=== PATIENT | female | born 1985 | race Caucasian/White ===

== ENCOUNTER 2017-02-20 13:54 | Emergency (ER) | payer SELFPAY ==
[2017-02-20 14:39] VITALS: BMI 33.3
--- NOTE | 2017-02-20 15:06 | XR_ITS ---
XR chest 2V COMPARISON: PA and lateral chest 04/09/2016 HISTORY: Cough TECHNIQUE: PA and lateral chest FINDINGS: The lung landry are well expanded and appear clear of infiltrate. The cardiac silhouette and vascularity are normal. There may be partially calcified right hilar nodes. There is no pleural fluid. IMPRESSION: Nonacute chest findings
[2017-02-20 15:38] LABS: UTC Influenza A Antigen Negative (Negative); UTC Influenza B Antigen Positive (Negative)
[2017-02-20 16:42] VITALS: BP 132/83; PULSE 97; RESP 20; TEMP 37.7; O2SAT 98; BMI 33.3
--- NOTE | 2017-02-20 17:38 | HMH.EDUTC ---
[facility] [place] Disposition Clinical Impression: Influenza B Disposition: Home, Self-Care Condition on Discharge: Good Instructions: DI for Influenza -- Adult Additional Instructions: * Start Tamiflu today if you are going to take it. Discussed risks and possible benefits. * Lots of rest * Increase fluids, water, gatorade, powerade, pedialyte if /toddler/child * Monitor Temp. Tylenol every 4 hours as needed no more then 5 times a day or 4000mg in 24 hours and/or ibuprofen every 6 hours as needed no more then 3200mg in 24 hours (as long as your primary care doctor has told you that it is ok to take both) for fever/aches/pain. ER if fever no less than 101 despite tylenol and Ibuprofen * warm salt water gargles * warm fluids * sore throat lozenges * sleep elevated * humidifier/vaporizer * Bromfed may cause drowsiness. Know how it effects you (or your child) before driving, caring for small children, or sending your child to school. No other antihistamines/allergy medications while taking bromfed. Follow up with primary care IMMEDIATELY for new or worsening symptoms, improvement followed by suddenly feeling worse OR no noticeable improvement over the next 48-72 hours. 911 for difficulty breathing Prescriptions: Brompheniramine/Pseudoephed/Dm [Bromfed DM Cough Syrup 5mL] 10 ml PO QID PRN #240 ml PRN Reason: Cough Oseltamivir Phosphate [Tamiflu 75mg Capsule] 75 mg PO BID #10 cap Forms: Work/School Release Time of Disposition: 17:49 Medical Decision Making Vital Signs: 02/20/17 16:42 Temperature 99.8 F H Temperature Source Temporal Artery Scan Pulse Rate [Left Brachial] 97 H Respiratory Rate 20 Blood Pressure [Left Arm] 132/83 Blood Pressure Mean [Left Arm] 99 Blood Pressure Source [Left Arm] Automatic Cuff Blood Pressure Position [Left Arm] Sitting 02 Sat by Pulse Oximetry 98 Oxygen Delivery Method Room Air - Lab Data Lab results reviewed: Yes: I reviewed the patient's lab results. Lab Results 02/20/17 15:05: Influenza Type A Ag Negative, Influenza Type B Ag Positive A - Radiology Data #1 Image(s): Chest Image Reviewed: Yes I have reviewed radiologist's interpretation Preliminary Findings: Normal/NAD - Curly Inquiry Pt receiving controlled substance: No [facility] [place] HPI - General Stated complaint: cough,headache,head congestion Mode of Arrival: Ambulatory Source of Information: Patient Limitations: No Limitations Description of Symptoms (Recalled from Triage Doc. by RN): c/o cough, sneezing, runny nose, sore throat HEENT Symptoms (Recalled from RN notes): Yes (runny nose, sore throat) Resp Symptoms (Recalled from RN notes): Yes (coughing, sneezing) Skin Symptoms (Recalled from RN notes): No MS Symptoms (Recalled from RN notes): No Functional Status (Recalled from RN notes): n/a - History of Present Illness Provider Complaint: Here w/ mom thinking she has the flu. Son, grandmother and grandfather and one niece all positive for flu B. Sister in law positive flu A. Mother and a niece w/ same symptoms but negative. Cough x 4-6 days but sudden onset rhinorrhea, sneezing, change in cough, headache, chills, feeling feverish yesterday. got worse each hour . dayquil once didn't help. Hasn't taken or tried anything else. - Related Data Previous Rx's Medication Instructions Recorded Brompheniramine/Pseudoephed/Dm 10 ml PO QID PRN #240 ml 02/20/17 [Bromfed DM Cough Syrup 5mL] Oseltamivir Phosphate [Tamiflu 75 mg PO BID #10 cap 02/20/17 75mg Capsule] Allergies Allergy/AdvReac Type Severity Reaction Status Date / Time No Known Allergies Allergy Unverified 01/25/17 14:42 - Worker's Comp Is this a Worker's Comp case?: No [facility] History I have reviewed the patient's past medical history: Yes (denies PMHx) Medical History: Denies:: Cancer, Diabetes Mellitus Type 1, Diabetes Mellitus Type 2, Hypertension, MRSA Other Surgeries: Yes: No Previous Surgery Amputation: No Fractures: No -
--- NOTE | 2017-02-20 17:45 | ED_ITS ---
[facility] [place] Disposition Clinical Impression: Influenza B Disposition: Home, Self-Care Condition on Discharge: Good Instructions: DI for Influenza -- Adult Additional Instructions: * Start Tamiflu today if you are going to take it. Discussed risks and possible benefits. * Lots of rest * Increase fluids, water, gatorade, powerade, pedialyte if /toddler/child * Monitor Temp. Tylenol every 4 hours as needed no more then 5 times a day or 4000mg in 24 hours and/or ibuprofen every 6 hours as needed no more then 3200mg in 24 hours (as long as your primary care doctor has told you that it is ok to take both) for fever/aches/pain. ER if fever no less than 101 despite tylenol and Ibuprofen * warm salt water gargles * warm fluids * sore throat lozenges * sleep elevated * humidifier/vaporizer * Bromfed may cause drowsiness. Know how it effects you (or your child) before driving, caring for small children, or sending your child to school. No other antihistamines/allergy medications while taking bromfed. Follow up with primary care IMMEDIATELY for new or worsening symptoms, improvement followed by suddenly feeling worse OR no noticeable improvement over the next 48-72 hours. 911 for difficulty breathing Prescriptions: Brompheniramine/Pseudoephed/Dm [Bromfed DM Cough Syrup 5mL] 10 ml PO QID PRN # 240 ml PRN Reason: Cough Oseltamivir Phosphate [Tamiflu 75mg Capsule] 75 mg PO BID #10 cap Forms: Work/School Release Time of Disposition: 17:49 Medical Decision Making Vital Signs: 02/20/17 16:42 Temperature 99.8 F H Temperature Source Temporal Artery Scan Pulse Rate [Left Brachial] 97 H Respiratory Rate 20 Blood Pressure [Left Arm] 132/83 Blood Pressure Mean [Left Arm] 99 Blood Pressure Source [Left Arm] Automatic Cuff Blood Pressure Position [Left Arm] Sitting 02 Sat by Pulse Oximetry 98 Oxygen Delivery Method Room Air - Lab Data Lab results reviewed: Yes: I reviewed the patient's lab results. Lab Results 02/20/17 15:05: Influenza Type A Ag Negative, Influenza Type B Ag Positive A - Radiology Data #1 Image(s): Chest Image Reviewed: Yes I have reviewed radiologist's interpretation Preliminary Findings: Normal/NAD - Curly Inquiry Pt receiving controlled substance: No [facility] [place]PI - General Stated complaint: cough,headache,head congestion Mode of Arrival: Ambulatory Source of Information: Patient Limitations: No Limitations Description of Symptoms (Recalled from Triage Doc. by RN): c/o cough, sneezing, runny nose, sore throat HEENT Symptoms (Recalled from RN notes): Yes (runny nose, sore throat) Resp Symptoms (Recalled from RN notes): Yes (coughing, sneezing) Skin Symptoms (Recalled from RN notes): No MS Symptoms (Recalled from RN notes): No Functional Status (Recalled from RN notes): n/a - History of Present Illness Provider Complaint: Here w/ mom thinking she has the flu. Son, grandmother and grandfather and one niece all positive for flu B. Sister in law positive flu A. Mother and a niece w/ same symptoms but negative. Cough x 4-6 days but sudden onset rhinorrhea, sneezing, change in cough, headache, chills, feeling feverish yesterday. got worse each hour . dayquil once didn't help. Hasn't taken or tried anything else. - Related Data Previous Rx's Medication Instructions Recorded Brompheniramine/Pseudoephed/Dm 10 ml PO QID PRN #240 ml 02/20/17 [Bromfed DM Cough Syrup 5mL] Oseltam
[2017-02-20 17:51] VITALS: BP 132/83; PULSE 97; RESP 20; TEMP 37.7; O2SAT 98
== END 2017-02-20 17:53 | disposition home or self-care (01) ==
PROVIDERS: Emergency Provider Nurse Practitioner Family; Family Provider Family Medicine
DX: J11.1 Influenza due to unidentified influenza virus with other respiratory manifestations (principal)
CPT/HCPCS: 71046; 87804; 99202; 99282

== ENCOUNTER → 2018-09-07 15:33 | Outpatient (CLI) | payer OTHER, SELFPAY | PROVIDERS: Visit Provider Nurse Practitioner Obstetrics & Gynecology | DX: Z32.00 Encounter for pregnancy test, result unknown (principal) | CPT/HCPCS: 36415; 84702 ==

== ENCOUNTER → 2018-09-15 12:32 | Outpatient (CLI) | payer OTHER, SELFPAY ==
--- NOTE | 2018-09-15 12:36 | US_ITS ---
US OB transvaginal: INDICATION: ITS.REASON: US OB Dates ORDERING PHYSICIAN: Jim Vilchis MD PATIENT AGE: 33 years TECHNIQUE: ultrasound transabdominal scanning. COMPARISON: No previous relevant studies. FINDINGS: Single viable intrauterine gestation. position. Placenta: placenta grade . There is amount fluid. The cervix appears satisfactory. Closed and measuring in length. Complete survey performed and was unremarkable on the submitted images as in PACS. No discrete anomalies identified on survey imaging by technologist. Active fetus. Three-vessel cord with satisfactory umbilical cord insertion. 4- chamber heart noted. Survey of brain & ventricles unremarkable. Face and neck survey unremarkable. Diaphragm and chest views unremarkable. Abdomen: Both kidneys noted and unremarkable. Stomach noted and satisfactory. Spine: Survey of the spine satisfactory with no anomalies identified nor imaged. Both arms and legs noted. Amniotic Fluid: Adequate. Maternal adnexa: No significant findings. Measurements: Average ultrasound age . Gestational Age . Estimated due date by ultrasound age . Estimated weight grams. BPD = OFD = HC = AC = FL = Growth Percentile= Heart Rate = Cerebellum = Humerus = HC/AC is . CI is . FL/BPD is . FL/AC is . IMPRESSION: US OB transvaginal HISTORY: ITS.REASON: US OB Dates ORDERING PHYSICIAN: Jim Vilchis MD PATIENT AGE: 33 years COMPARISON: None FINDINGS: An intrauterine gestational sac is present with a pole with a crown-rump length of 2.32cm correlating to gestational age of 9w1d. heart tones are present with an FHR of 186 bpm's. Yolk sac is noted. The amnion and chorion have not yet fused. Adnexa: Small left corpus luteum cyst at 1.6 cm. IMPRESSION: Live intrauterine gestation at 9 weeks 1 days as described above. Estimated due date by Ultrasound is 04/19/2019
== END ==
PROVIDERS: PCP Family Medicine; Visit Provider Nurse Practitioner Obstetrics & Gynecology
DX: O26.841 Uterine size-date discrepancy, first trimester (principal)
CPT/HCPCS: 76817

== ENCOUNTER → 2018-09-22 13:07 | Outpatient (CLI) | payer OTHER, SELFPAY ==
[2018-09-22 14:52] LABS: Basophils % 0.4 % (0.1-2.0); Eosinophils # 0.2 K/mm3 (0.0-0.4); Eosinophils % 2.2 % (0.1-12.0); Hematocrit 40.3 % (37.0-47.0); Hemoglobin 13.3 g/dL (12.2-16.2); Lymphocytes # 1.6 K/mm3 (0.7-4.5); Lymphocytes % 18.2 % (10-50); Mean Corpuscular Hemoglobin 30.7 pg (27.0-31.2); Mean Corpuscular Volume 93.2 fl (81-99); Mean Platelet Volume 6.8 fl (7.4-10.4); Monocytes # 0.5 K/mm3 (0.1-1.0); Monocytes % 5.4 % (1.7-9.3); Neutrophils # 6.6 K/mm3 (1.8-7.8); Neutrophils % 73.7 % (37.0-80.0); Platelet Count 300 K/mm3 (142-424); Red Blood Count 4.33 M/mm3 (4.20-5.40); Red Cell Distribution Width 12.9 % (11.5-17.5)
[2018-09-23 07:09] LABS: HIV Screen 4th Generation wRfx Non Reactive (Non Reactive)
[2018-09-24 16:30] LABS: Hepatitis B Surface Antigen Negative (Negative); Hepatitis C Antibody <0.1 s/co ratio (0.0-0.9)
[2018-09-24 16:33] LABS: Rapid Plasma Reagin Ab Titer Non Reactive (NonRea<1:1)
== END ==
PROVIDERS: Visit Provider Nurse Practitioner Obstetrics & Gynecology
DX: Z34.90 Encounter for supervision of normal pregnancy, unspecified, unspecified trimester (principal)
CPT/HCPCS: 36415; 85025; 86592; 86703; 86762; 86850; 87340; 87380; G0432

== ENCOUNTER → 2018-09-27 09:20 | Outpatient (CLI) | payer OTHER, SELFPAY ==
--- NOTE | 2018-09-27 09:29 | US_ITS ---
PROCEDURE: US OB TRANSVAGINAL CLINICAL INDICATION: US OB- Spotting during COMPARISON: OBTV US OB transvaginal from 09/15/2018 FINDINGS: There is a single live intrauterine gestation present with a crown-rump length of 4.26 cm correlating to a gestational age of 11 weeks and 1 day. The placenta is noted forming anteriorly. No evidence of retroplacental hemorrhage. heart tones are present 154 beats per minute. There is a 1.8 cm cyst within the left ovary. No cul-de-sac fluid evident. IMPRESSION: Live intrauterine at 11 weeks and 1 day. Estimated due date by ultrasound is 04/17/2019 Dictated by: Gorge Clarke MD 09/27/2018 17:35 Signed by: <Electronically signed by Gorge Clarke MD in [place]> 09/27/2018 17:35
== END ==
PROVIDERS: PCP Family Medicine; Visit Provider Nurse Practitioner Obstetrics & Gynecology
DX: O26.851 Spotting complicating pregnancy, first trimester (principal); Z3A.11 11 weeks gestation of pregnancy
CPT/HCPCS: 76817

== ENCOUNTER → 2018-12-04 12:43 | Outpatient (CLI) | payer OTHER, SELFPAY ==
--- NOTE | 2018-12-04 12:46 | US_ITS ---
PROCEDURE: US OB /MATERNAL DETAIL CLINICAL INDICATION: US OB Complete COMPARISON: US OB TRANSVAGINAL from 09/27/2018 FINDINGS: Single viable intrauterine gestation. Cephalic position. Placenta: Anteriorplacenta grade 1. There is average amount fluid. The cervix appears closed. Complete survey performed and was unremarkable on the submitted images as in PACS. No discrete anomalies identified on survey imaging by technologist. Active fetus. Three-vessel cord with satisfactory umbilical cord insertion. 4- chamber heart noted. Survey of brain & ventricles Unremarkable. Face and neck survey unremarkable. Diaphragm and chest views unremarkable. Abdomen: Both kidneys noted and unremarkable. Stomach noted and satisfactory. Spine: Survey of the spine satisfactory with no anomalies identified nor imaged. Both arms and legs noted. Amniotic Fluid: Adequate. Maternal adnexa: No significant findings. Measurements: Average ultrasound age 20 weeks and 5 days. Gestational Age 20 weeks and 4 days Estimated due date by ultrasound age 0304/18/2019. Estimated weight 365.6 ggrams. BPD = 20 weeks 5 days OFD = 21 weeks 1 day HC = 20 weeks 2 days AC = 21 weeks 1 day FL = 20 weeks 2 days Growth Percentile= 48 percent% Heart Rate = 149 bpm Cerebellum = 20 weeks 0 days Humerus = 21 weeks 4 days HC/AC is 1.11 CI is 0.76 FL/BPD is 0.67 FL/AC is 0.2 IMPRESSION: There is a single live fetus which is in cephalic presentation with an average ultrasound age of 20 weeks and 5 days. All parameters correlate with no obvious anomalies. Please see above for detail. Dictated by: Gorge Clarke MD 12/04/2018 16:35 Electronically signed by Gorge Clarke MD in [place] 12/04/2018 16:35
== END ==
PROVIDERS: PCP Family Medicine; Visit Provider Nurse Practitioner Obstetrics & Gynecology
DX: Z36.0 Encounter for antenatal screening for chromosomal anomalies (principal)
CPT/HCPCS: 76811

== ENCOUNTER → 2019-01-17 08:08 | Outpatient (CLI) | payer OTHER, SELFPAY ==
[2019-01-17 08:54] LABS: Glucose,Fasting 85 mg/dL (60-105)
[2019-01-17 09:57] LABS: Glucose 1 Hour 142 mg/dL (74-106)
== END ==
PROVIDERS: Visit Provider Nurse Practitioner Obstetrics & Gynecology
DX: Z34.90 Encounter for supervision of normal pregnancy, unspecified, unspecified trimester (principal)
CPT/HCPCS: 36415; 82951

== ENCOUNTER → 2019-01-22 08:07 | Outpatient (CLI) | payer OTHER, SELFPAY ==
[2019-01-22 08:29] LABS: Glucose,Fasting 80 mg/dL (60-105)
[2019-01-22 10:03] LABS: Glucose 1 Hour 147 mg/dL (74-106)
[2019-01-22 10:51] LABS: Glucose 2 Hour 108 mg/dL (74-106)
[2019-01-22 11:52] LABS: Glucose 3 Hour 76 mg/dL (74-106)
== END ==
PROVIDERS: Visit Provider Nurse Practitioner Obstetrics & Gynecology
DX: R73.09 Other abnormal glucose (principal)
CPT/HCPCS: 36415; 82951

== ENCOUNTER → 2019-03-15 16:26 | Outpatient (CLI) | payer OTHER, SELFPAY | PROVIDERS: Visit Provider Nurse Practitioner Obstetrics & Gynecology | DX: Z34.90 Encounter for supervision of normal pregnancy, unspecified, unspecified trimester (principal); Z3A.35 35 weeks gestation of pregnancy | CPT/HCPCS: 86403 ==

== ENCOUNTER 2019-04-18 04:57 | Inpatient (IN) ==
[2019-04-18 05:50] LABS: Microscopic, Urine URINE MICROSCOPIC (MICROSCOPIC)
[2019-04-18 05:53] LABS: Basophils % 0.3 % (0.1-2.0); Eosinophils # 0.1 K/mm3 (0.0-0.4); Eosinophils % 1.2 % (0.1-12.0); Hematocrit 38.1 % (37.0-47.0); Hemoglobin 12.8 g/dL (12.2-16.2); Lymphocytes # 2.1 K/mm3 (0.7-4.5); Lymphocytes % 19.1 % (10-50); Mean Corpuscular HGB Conc 33.5 g/dL (31.8-35.4); Mean Corpuscular Volume 93.4 fl (81-99); Mean Platelet Volume 7.9 fl (7.4-10.4); Monocytes # 0.6 K/mm3 (0.1-1.0); Monocytes % 5.5 % (1.7-9.3); Neutrophils % 73.9 % (37.0-80.0); Platelet Count 224 K/mm3 (142-424); Red Blood Count 4.08 M/mm3 (4.20-5.40); White Blood Count 10.9 K/mm3 (4.8-10.8)
[2019-04-18 05:54] LABS: Appearance,Urine CLEAR (Clear); Bilirubin,Urine Negative (Negative); Blood, Urine Negative (Negative); Color,Urine YELLOW (Yellow); Glucose,Urine (UA) Negative (Negative); Ketones,Urine Negative (Negative); Leukocyte Esterase,Urine Negative (Negative); Protein,Urine Negative (Negative); Specific Gravity, Urine >= 1.030 (1.005-1.030); Urobilinogen,Urine 0.2 EU/dl (0.2)
[2019-04-18 06:03] LABS: Bacteria,Urine 1+ /lpf; Mucus,Urine 1+ /lpf
[2019-04-18 06:05] LABS: Benzodiazepines Screen,Urine Negative ng/ml (<200)
[2019-04-18 06:06] LABS: Amphetamine/Metha Screen,Urine Negative ng/ml (<1000); Barbiturates Screen,Urine Negative ng/ml (<200)
[2019-04-18 06:07] LABS: Cannabinoid Screen,Urine Negative ng/ml (<50)
[2019-04-18 06:08] LABS: Cocaine Screen,Urine Negative ng/ml (<300); Methadone Screen,Urine Negative ng/ml (<300)
[2019-04-18 06:09] LABS: Phencyclidine Screen,Urine Negative ng/ml (<25)
[2019-04-18 06:10] LABS: Opiate Screen,Urine Negative ng/ml (<300)
--- NOTE | 2019-04-18 09:53 | Progress Note ---
Labor Note - Subjective: Date: 04/18/19 Time: 09:52 regular contraction - Objective: NST:: Reactive Contractions:: every 2-3 minutes Cervical Dilation:: 4 Effacement:: 90% Station: -2 Membranes: artificially ruptured - Fetus: Monitoring?: Yes monitoring type:: Internal and External Comment:: iupc inserted - Assessment: Labor progressing?: Yes Cephalopelvic disproportion?: No Patient Problems: All Active Problems Common cold virus (Acute) (Acute) URI (upper respiratory infection) (Acute) Irregular periods (Acute) Influenza B (Acute) - Plan: Anesthesia for epidural?: Yes Continue to labor down?: Yes Plan for ?: No Continue to monitor?: Yes Start pushing?: No
--- NOTE | 2019-04-18 11:45 | Progress Note ---
Labor Note - Subjective: Date: 04/18/19 Time: 11:45 regular contraction - Objective: NST:: Reactive Contractions:: every 2-3 minutes Cervical Dilation:: 9-10 Effacement:: 100% Station: +3 Membranes: artificially ruptured - Fetus: Monitoring?: Yes monitoring type:: Internal and External - Assessment: Labor progressing?: Yes Cephalopelvic disproportion?: No Patient Problems: All Active Problems Common cold virus (Acute) (Acute) URI (upper respiratory infection) (Acute) Irregular periods (Acute) Influenza B (Acute) - Plan: Anesthesia for epidural?: Yes Continue to labor down?: Yes Plan for ?: No Continue to monitor?: Yes Start pushing?: Yes
--- NOTE | 2019-04-18 12:05 | Procedure Note ---
- Delivery Note Delivery Date:: 04/18/19 Delivery Time:: 11:51 Anesthesia Type: Epidural Was labor medically induced?: Yes Induction method: per pitocin protocol Gestational age (weeks): 39 delivered prior to 39 weeks?: No Gender: Female at 1 minute: 8 at 5 minutes: 9 Delivery Procedure:: She is a 34-year-old 2 para 1 who was 39 and 6 weeks gestational age. She was feeling lots of pressure so we elected to augment her labor. She was started on IV oxytocin had her membranes ruptured. She progressed to full dilation under labor epidural and delivered spontaneously a liveborn female child at 11:51 AM in the morning of April 18, 2019. On deliver the head there was a tight nuchal cord and I elected to deliver the rest the infant's body atraumatically. The cord was then reduced and the baby cried spontaneously. The oropharynx and nasopharynx were bulb suction. We allowed the cord to continue to pulsate for approximately 1 minute. The cord was then doubly clamped and cut and the was placed on the mother's abdomen for further care. The nurses assigned Apgars of 8 at 1 minute and 9 at 5 minutes. She received IV oxytocin using gentle traction on the cord countertraction on the fundus I was able to easily deliver the placenta intact. He had a normal three-vessel cord. She had a small first-degree perineal laceration that was repaired with a single interrupted 3-0 Vicryl Rapide suture. She has O Rh+ blood, she is rubella immune and was group B streptococcus negative. She plans to breast-feed. Her craft worker is Dr. Pelletier. Estimated blood loss was approximately 500 cc. Laceration:: vaginal Placental Delivery Description: Spontaneous
--- NOTE | 2019-04-18 12:22 | Progress Note ---
[facility] Anesthesia Checklist - Structural Data Admitted From: Inpatient Planned Operative Procedure/s: labor epidural Consent for Planned Operative Procedure(s) Verified: Yes - Airway Assessment C-Spine Mobility Assessed: Yes TMJ Mobility Assessed: Yes Dentition: Good Dentition - Neurological Assessment Level of Consciousness: Awake, Alert, Appropriate - Anesthesia Plan Anesthesia Risk discussed: Yes Anesthesia Plan: Verified ASA Class: III Anesthesia Type: Epidural [facility] History I have reviewed the patient's past medical history: Yes Medical History: Denies:: Cancer, Diabetes Mellitus Type 1, Diabetes Mellitus Type 2, Hypertension, MRSA *Have you ever received a pneumonia vaccine?: No *Have you received a flu vaccine this season?: Yes Anesthesia experience/problems:: none Other Surgeries: Yes: No Previous Surgery, Other. No: Amputation: No Fractures: No - *Social History Smoking Status: Current every day smoker Tobacco Type: cigarettes # Packs/Day (cigarettes): 1 Alcohol Intake: never Substance Use Type: denies use *Occupational Status:: employed *Travel in the last 8 weeks: None Family Hx:: No significant family history Para: 1
[2019-04-19 07:29] LABS: Hematocrit 33.7 % (37.0-47.0); Hemoglobin 11.3 g/dL (12.2-16.2)
[2019-04-19 08:25] VITALS: BP 130/66
--- NOTE | 2019-04-19 08:25 | Progress Note ---
Internal Medicine - PN: Subj *Date: 04/19/19 *Time: 08:22 Interval history: She is doing well. We will plan to send her home tomorrow. She is breast- feeding. Her lochia is normal. Exam Vital signs and Labs for Last 24 Hours: Temp Pulse Resp BP Pulse Ox 98.4 F 81 18 132/78 96 04/18/19 17:00 04/18/19 17:00 04/18/19 17:00 04/18/19 17:00 04/18/19 17:00 Laboratory Results - last 24 hr 04/18/19 12:08: Cord ABG pH 7.34 L 04/19/19 07:20: Hgb 11.3 L, Hct 33.7 L I & O for Last 24 hours: Intake & Output 04/16/19 04/17/19 04/18/19 04/19/19 11:59 11:59 11:59 11:59 Weight 270 lb - Constitutional no acute distress - *Routine HEENT Exam Head: Present: normocephalic Eye: Present: EOMI, PERRL ENT: Present: mucous membranes moist Assessment and Plan (1) Normal delivery Current visit: Yes Status: Acute Category: Medical Code(s): O80 - Encounter for full-term uncomplicated delivery - Assessment and plan all Dx Assessment and Plan for all problems:: She continues to do well. She is breast-feeding. We will plan to send her home tomorrow.
--- NOTE | 2019-04-20 09:48 | Discharge Summary ---
General - General Admission date:: 04/18/19 Discharge date: 04/20/19 HPI HPI: She is a 34-year-old 2 now para 2 who is 39 weeks gestational age. She was feeling pressure and since she was term we elected to induce her labor. Hospital Course Hospital Course: She started on oxytocin had her membranes ruptured. Under labor epidural she progressed to full dilation and delivered spontaneously a liveborn female child at 11:51 AM on the morning of April 18, 2019. Baby was a liveborn female child with Apgars of 8 at 1 minute and 9 at 5 minutes. She weighed 8 pounds 9 ounces. She has done well and has remained afebrile with that her hospitalization. She is eating and drinking and ambulating. She has Rh+ blood. She is breast-feeding. She is discharged home to follow-up with me in approximate 2 weeks time. She will continue with her vitamins and iron. She will continue with her breast-feeding. Her condition on discharge is stable and improved. Rhogam Administration: Not Indicated Objective Vital signs: Temp Pulse Resp BP Pulse Ox 97.5 F L 82 20 130/66 98 04/19/19 08:00 04/19/19 08:00 04/19/19 08:00 04/19/19 08:00 04/19/19 08:00 DS: Diagnosis - Discharge Diagnosis (1) Normal delivery Status: Acute Discharge Plan - Patient Discharge Instructions ACTIVITY: No heavy lifting DIET: continue same diet Patient Instructions: DI for Pre-eclampsia, [facility] Post Discharge Instructions - Follow up Plan Disposition: Home, Self-Intermediate Medications: Home Medications Medication Instructions Recorded Confirmed Type prenat.vits,sidney,kwv-[id number] 1 tab PO DAILY 09/20/18 04/18/19 History Famotidine [Acid Molding Cutter] 20 mg PO DAILY 03/10/19 04/18/19 History Ferrous Sulfate 325 mg PO DAILY 03/10/19 04/18/19 History Prescriptions/Medication Reconciliation: Continued prenat.vits,sidney,tdo-[id number] 1 tab PO DAILY Famotidine [Acid Molding Cutter] 20 mg PO DAILY Ferrous Sulfate 325 mg PO DAILY - Problem Reconciliation Problems Reviewed?: Yes
== END 2019-04-20 13:15 | disposition home or self-care (01) | DRG 807 ==
LOC: OB 04:57
PROVIDERS: ADMIT Nurse Practitioner Obstetrics & Gynecology; ATTEND Nurse Practitioner Obstetrics & Gynecology
CPT/HCPCS: C1758

== ENCOUNTER 2019-07-03 08:11 | Inpatient (IN) | payer OTHER, SELFPAY ==
[2019-07-03] VITALS (26 sets, daily range): BP systolic 103–151; BP diastolic 42–94; PULSE 62–98; RESP 16–20; TEMP 36.2–43; O2SAT 95–99; BMI 39.9
[2019-07-03 08:41] LABS: Microscopic, Urine URINE MICROSCOPIC (MICROSCOPIC)
[2019-07-03 08:43] LABS: Appearance,Urine CLEAR (Clear); Blood, Urine TRACE-I (Negative); Color,Urine YELLOW (Yellow); Glucose,Urine (UA) Negative (Negative); Ketones,Urine Negative (Negative); Leukocyte Esterase,Urine Negative (Negative); Nitrate,Urine Negative (Negative); Protein,Urine Negative (Negative); Specific Gravity, Urine 1.025 (1.005-1.030)
--- NOTE | 2019-07-03 08:43 | CT_ITS ---
PROCEDURE: CT ABDOMEN PELVIS WO CON CLINICAL INDICATION: R lower abd pain Right lower quadrant pain with fever nausea vomiting and diarrhea the COMPARISON: No exams were available for comparison TECHNIQUE: Axial images obtained with sagittal and coronal reformats. All CT scans at the facility use one or more dose reduction, viz: automated exposure control, ma/kV adjustment per patient size (including targeted exams where dose is matched to indication, i.e. head), or iterative reconstruction technique. FINDINGS: LOWER THORAX: Atelectatic or fibrotic changes are present in the right lung base posteriorly. Follow-up may confirm stability ABDOMEN & PELVIS: The liver, gallbladder, spleen, adrenal glands, and pancreas have an unremarkable unenhanced appearance. No renal or ureteral calculi. No hydronephrosis. There are few scattered small retroperitoneal lymph nodes. The appendix has an abnormal appearance. The appendix is enlarged with a focal collection along the tip of the appendix superiorly measuring 3.6 by 2.4 cm with an air-fluid level consistent with an abscess either at the tip of the appendix. The appendix is retrocecal. There is thickening of the descending colon and cecum and stranding of the periappendiceal fat. No intestinal obstruction is evident. No evidence of pneumoperitoneum. There is a small amount of fluid in the pelvis the the. No acute bony anomalies. IMPRESSION: Findings are compatible with acute appendicitis with a 3.5 cm periappendiceal/appendiceal abscess. The appendix is retrocecal. The findings were discussed with Dr. Catalan at 07/03/2019 at 9:20 a.m. Dictated by: Gorge Clarke MD 07/03/2019 09:25 Electronically signed by Gorge Clarke MD in [place] 07/03/2019 09:26
[2019-07-03 08:48] LABS: Urine Pregnancy, HCG Qual. Negative (Negative)
[2019-07-03 08:53] LABS: Bilirubin,Urine Negative (Negative)
--- NOTE | 2019-07-03 08:59 | PC.NURSE ---
pt to CT
[2019-07-03 09:01] LABS: Bacteria,Urine 3+ /lpf; Mucus,Urine 1+ /lpf
[2019-07-03 09:09] LABS: Basophils # 0.1 K/mm3 (0-0.2); Basophils % 0.5 % (0.1-2.0); Eosinophils # 0.3 K/mm3 (0.0-0.4); Eosinophils % 2.7 % (0.1-12.0); Hematocrit 40.3 % (37.0-47.0); Hemoglobin 13.6 g/dL (12.2-16.2); Lymphocytes # 1.4 K/mm3 (0.7-4.5); Lymphocytes % 14.2 % (10-50); Mean Corpuscular HGB Conc 33.7 g/dL (31.8-35.4); Mean Corpuscular Hemoglobin 31.1 pg (27.0-31.2); Mean Corpuscular Volume 92.1 fl (81-99); Mean Platelet Volume 7.1 fl (7.4-10.4); Monocytes # 0.5 K/mm3 (0.1-1.0); Monocytes % 4.8 % (1.7-9.3); Neutrophils # 7.5 K/mm3 (1.8-7.8); Neutrophils % 77.8 % (37.0-80.0); Platelet Count 334 K/mm3 (142-424); Red Blood Count 4.38 M/mm3 (4.20-5.40); Red Cell Distribution Width 12.9 % (11.5-17.5); White Blood Count 9.6 K/mm3 (4.8-10.8)
[2019-07-03 09:15] LABS: Chloride 105 mmol/L (98-107); Potassium 4.1 mmoL/L (3.5-5.1); Sodium 139 mmol/L (136-145)
[2019-07-03 09:18] LABS: Alanine Aminotransferase 25 U/L (12-78); Albumin Level 3.9 g/dl (3.5-5.0); Albumin/Globulin Ratio 1.1 (1.1-1.8); Alkaline Phosphatase 72 U/L (38-126); Anion Gap 13.1 mEq/L (5-15); Aspartate Amino Transferase 28 U/L (14-36); Bilirubin,Total 0.6 mg/dl (0.2-1.3); Blood Urea Nitrogen 13 mg/dl (7-17); Calcium 9.1 mg/dl (8.4-10.2); Carbon Dioxide 25 mmol/L (22.0-30.0); Creatinine Clearance Estimated 191 mL/min (50-200); Estimated Glomerular Filt Rate 95 ml/min (>60); GFR (African American) 115 ML/MIN (>60); Globulin 3.5 g/dL (1.3-3.2); Glucose 107 mg/dl (74-100); Total Protein,Serum 7.4 g/dl (6.3-8.2)
--- NOTE | 2019-07-03 09:26 | PC.NURSE ---
Dr. Lion ardon.
--- NOTE | 2019-07-03 09:33 | PC.NURSE ---
Addendum entered by Radha Muñoz, EMT 07/03/19 09:36: Dr Catalan spoke with Dr Kruger only. Original Note: Dr Catalan spoke with Dr Seymour and Dr Kruger.
--- NOTE | 2019-07-03 09:45 | HMH.EDABDPAI ---
ED Disposition Clinical Impression: Acute appendicitis Disposition: Admitted as Observation Condition on Discharge: Good Instructions: DI for Acute Abdomen Referrals: Bill Valencia MD [Primary Care Provider] - - Critical Care Critical Care Time: No Attestation: On 07/03/19, the high probability of a clinically significant, sudden or life threatening deterioration of the following system(s) required my full and direct attention, intervention and personal management. The time I documented below is in addition to time spent performing reported procedures but includes the following listed in this critical care notation. Medical Decision Making - Medical Records Medical records reviewed: Yes: I reviewed the patient's medical records. - Curly Inquiry Pt receiving controlled substance: No Vital Signs: 07/03/19 08:17 07/03/19 09:44 Temperature 97.4 F L 98.4 F Temperature Source Oral Oral Pulse Rate [Right Radial] 98 H 91 H Respiratory Rate 16 18 Blood Pressure [Right Arm] 129/75 151/94 H Blood Pressure Mean [Right Arm] 93 113 Blood Pressure Source [Right Arm] Automatic Cuff Blood Pressure Position [Right Arm] Sitting Sitting 02 Sat by Pulse Oximetry 97 98 Oxygen Delivery Method Room Air Room Air - Lab Data Lab results reviewed: Yes: I reviewed the patient's lab results. Lab Results 07/03/19 08:25: Urine Color Yellow, Urine Appearance Clear, Urine pH 6.0, Ur Specific [place] 1.025, Urine Protein Negative, Urine Glucose (UA) Negative, Urine Ketones Negative, Urine Blood Trace-i, Urine Nitrate Negative, Urine Bilirubin Negative, Urine Urobilinogen 1.0, Ur Leukocyte Esterase Negative, Urine RBC 5-10, Urine WBC 5-10, Ur Squamous Epith Cells 5-10, Urine Bacteria 3+, Urine Mucus 1+ 07/03/19 08:25: Urine HCG, Qual Negative 07/03/19 08:55: WBC 9.6, RBC 4.38, Hgb 13.6, Hct 40.3, MCV 92.1, MCH 31.1, MCHC 33.7, RDW 12.9, Plt Count 334, MPV 7.1 L, Neut % (Auto) 77.8, Lymph % (Auto) 14.2, [place] % (Auto) 4.8, Eos % (Auto) 2.7, Baso % (Auto) 0.5, Neut # (Auto) 7.5, Lymph # (Auto) 1.4, [place] # (Auto) 0.5, Eos # (Auto) 0.3, Baso # (Auto) 0.1 07/03/19 08:55: Sodium 139, Potassium 4.1, Chloride 105, Carbon Dioxide 25, Anion Gap 13.1, BUN 13, Creatinine 0.70, Estimated Creat Clear 191, Estimated GFR 95, Est GFR ( Amer) 115, Glucose 107 H, Calcium 9.1, Total Bilirubin 0.6, AST 28, ALT 25, Alkaline Phosphatase 72, Total Protein 7.4, Albumin 3.9, Globulin 3.5 H, Albumin/Globulin Ratio 1.1 Result diagrams: 07/03/19 08:55 07/03/19 08:55 Orders (Tests/Meds): ORDERS Category Date Time Status Urine Culture Stat Micro 07/03/19 08:25 Received - CT Data CT Scan: Abdomen, Pelvis Time Received: 09:[address] Reviewed: Yes: I have viewed the radiologist's interpretation Preliminary Findings: Abnormal (Acute appendicitis) Medical Decision Narrative: Spoke to Dr. Seymour for surgical consult. Abdominal Pain HPI - General Chief Complaint: Abdominal Pain Stated Complaint: right side pain Time Seen by Provider: 07/03/19 09:45 Mode of Arrival: Ambulatory Limitations: No Limitations Description of Symptoms (Recalled from ER Triage Doc. by RN): Pt c/o R lower abd pain that spasming in nature that began lastnight. Pt reports has constant dull in nature but intermittently. Pt denies n/v/d - History of Present Illness HPI narrative: A pleasant 34-year-old female presents the ED with right lower quadrant abdominal pain. Patient states that the pain started last night and described it as a sharp sensation. It progressively got worse as the day has progressed. She rates her pain 6 out of 10. She also complains of mild nausea with no vomiting. Alleviating factors include flexion at the waist and rest. Exacerbating factors include increasing intra-abdominal pressure. Patient denies any overt fever either subjective or objective. Patient denies any cough or shortness of breath. Patient denies any malaise or fatigue. Patient also
--- NOTE | 2019-07-03 09:59 | PC.NURSE ---
VALERIO VERA speaking with Dr. Malagon
--- NOTE | 2019-07-03 10:47 | HMH.GSHP ---
HPI HPI: Patient is a pleasant 34-year-old female whom has had some lower abdominal pain progressive over about 1 week. It became much more severe overnight and she presented to the emergency department. She underwent evaluation which included CT scan which revealed findings consistent with acute appendicitis with possible 2.5 cm abscess at the tip of the appendix. Surgical consultation was obtained. [facility] History Medical History: Denies:: Cancer, Diabetes Mellitus Type 1, Diabetes Mellitus Type 2, Hypertension, MRSA *Have you ever received a pneumonia vaccine?: No *Have you received a flu vaccine this season?: Yes Other Surgeries: Yes: No Previous Surgery, Other. No: Amputation: No Fractures: No - *Social History Smoking Status: Current every day smoker Tobacco Type: cigarettes # Packs/Day (cigarettes): 1 Alcohol Intake: never Substance Use Type: denies use *Occupational Status:: employed *Travel in the last 8 weeks: None Family Hx:: No significant family history Review of Systems - Review of Systems Review of systems:: pertinent systems reviewed and negative unless documented below Meds Home Medications Medication Instructions Recorded Confirmed Type prenat.vits,sidney,lkd-gjgu-wyzvg 1 tab PO DAILY 09/20/18 05/30/19 History Ferrous Sulfate 325 mg PO DAILY 03/10/19 05/30/19 History metoclopramide HCl 5 mg tablet 5 mg PO QID 14 Days #56 tab 05/30/19 05/30/19 Rx norethindrone (contraceptive) 0.35 0.35 mg PO DAILY #84 tab 05/30/19 05/30/19 Rx mg tablet Allergies Allergy/AdvReac Type Severity Reaction Status Date / Time No Known Allergies Allergy Verified 05/30/19 09:49 Exam Vital signs and Labs for Last 24 Hours: Temp Pulse Resp BP Pulse Ox 98.4 F 91 H 18 151/94 H 98 07/03/19 10:07/03/19 10:22 07/03/19 10:07/03/19 10:07/03/19 09:44 Laboratory Results - last 24 hr 07/03/19 08:25: Urine Color Yellow, Urine Appearance Clear, Urine pH 6.0, Ur Specific [place] 1.025, Urine Protein Negative, Urine Glucose (UA) Negative, Urine Ketones Negative, Urine Blood Trace-i, Urine Nitrate Negative, Urine Bilirubin Negative, Urine Urobilinogen 1.0, Ur Leukocyte Esterase Negative, Urine RBC 5-10, Urine WBC 5-10, Ur Squamous Epith Cells 5-10, Urine Bacteria 3+, Urine Mucus 1+ 07/03/19 08:25: Urine HCG, Qual Negative 07/03/19 08:55: WBC 9.6, RBC 4.38, Hgb 13.6, Hct 40.3, MCV 92.1, MCH 31.1, MCHC 33.7, RDW 12.9, Plt Count 334, MPV 7.1 L, Neut % (Auto) 77.8, Lymph % (Auto) 14.2, [place] % (Auto) 4.8, Eos % (Auto) 2.7, Baso % (Auto) 0.5, Neut # (Auto) 7.5, Lymph # (Auto) 1.4, [place] # (Auto) 0.5, Eos # (Auto) 0.3, Baso # (Auto) 0.1 07/03/19 08:55: Sodium 139, Potassium 4.1, Chloride 105, Carbon Dioxide 25, Anion Gap 13.1, BUN 13, Creatinine 0.70, Estimated Creat Clear 191, Estimated GFR 95, Est GFR ( Amer) 115, Glucose 107 H, Calcium 9.1, Total Bilirubin 0.6, AST 28, ALT 25, Alkaline Phosphatase 72, Total Protein 7.4, Albumin 3.9, Globulin 3.5 H, Albumin/Globulin Ratio 1.1 I & O for Last 24 hours: Intake & Output 06/30/19 07/01/19 07/02/19 07/03/19 11:59 11:59 11:59 11:59 Weight 240 lb - *Routine HEENT Exam Head: Present: normocephalic Eye: Present: EOMI, PERRL ENT: Present: mucous membranes moist - *Routine Neck Exam Present: supple. Absent: lymphadenopathy - *Routine Respiratory Exam Present: CTA bilaterally - *Routine Cardiovascular Exam Present: RRR - *Routine Abdominal Exam Present: soft, normoactive bowel sounds, tenderness Comments: Patient has tenderness with some voluntary guarding at the right lower quadrant. No diffuse peritoneal signs. - *Routine Extremities Exam Absent: cyanosis, clubbing, edema - *Routine Skin Exam Present: warm. Absent: rash - *Routine Neurological Exam Present: alert, oriented X3 Results - Results Lab Results Last 24 Hours:: Laboratory Results - last 24 hr 07/03/19 08:25: Urine Color Yellow, Urine Appearance Cl
--- NOTE | 2019-07-03 11:21 | HMH.ANESCL ---
[facility] Anesthesia Checklist - Structural Data Admitted From: Emergency Dept Planned Operative Procedure/s: appy Consent for Planned Operative Procedure(s) Verified: Yes - Airway Assessment C-Spine Mobility Assessed: Yes TMJ Mobility Assessed: Yes Dentition: Good Dentition - Neurological Assessment Level of Consciousness: Awake, Alert, Appropriate - Anesthesia Plan Anesthesia Risk discussed: Yes Anesthesia Plan: Verified ASA Class: II Anesthesia Type: General [facility] History I have reviewed the patient's past medical history: Yes Medical History: Denies:: Cancer, Diabetes Mellitus Type 1, Diabetes Mellitus Type 2, Hypertension, MRSA *Have you ever received a pneumonia vaccine?: No *Have you received a flu vaccine this season?: Yes Anesthesia experience/problems:: none Other Surgeries: Yes: No Previous Surgery, Other. No: Amputation: No Fractures: No - *Social History Smoking Status: Current every day smoker Tobacco Type: cigarettes # Packs/Day (cigarettes): 1 Alcohol Intake: never Substance Use Type: denies use *Occupational Status:: employed *Travel in the last 8 weeks: None Family Hx:: No significant family history
--- NOTE | 2019-07-03 12:19 | HMH.OPNOTE ---
Date of procedure: 07/03/19 Pre-op Diagnosis:: Acute appendicitis Post-op Diagnosis:: Acute perforated necrotic appendicitis with abdominal abscess formation Procedure performed:: Laparoscopic appendectomy with drainage of intra-abdominal abscess Surgeon:: Herminio Seymour MD EMISSION SPECIALIST:: Brett Parikh Anesthesia: GETA Estimated blood loss (mL): 25 Clinical Note:: Patient is a pleasant 34-year-old female whom has had some lower abdominal pain progressive over about 1 week. It became much more severe overnight and she presented to the emergency department. She underwent evaluation which included CT scan which revealed findings consistent with acute appendicitis with possible 2.5 cm abscess at the tip of the appendix. Surgical consultation was obtained. Operative findings:: Patient had a severely inflamed necrotic perforated abscess in the lateral cecal location. Necrosis. She had induration and involvement of the abscess wall of the cecum. The perforation was contained in the posterior lateral pericecal location with some reactive fluid in the pelvis. There was market induration and firmness of the cecum focally at the point of abscess wall. Operative note:: Consent was obtained and patient was taken to the operating room. She was placed in a supine position. General anesthesia was induced via endotracheal tube. Michael catheter was placed. Abdomen was prepped and draped in the standard surgical fashion. Subumbilical skin incision was made and while performing abdominal wall lift Veress needle was inserted. CO2 pneumoperitoneum was achieved to 15 mmHg. 12 mm optical trocar was inserted at the umbilicus. Intraperitoneal contents were visualized. She was positioned and Trendelenburg position. 5 mm trocar was inserted in the suprapubic location. There is some reactive fluid in the pelvis which was suctioned free. 5 mm trocar was inserted in the right upper abdomen. 30 degree 5 mm laparoscope was inserted through the right upper abdominal trocar site. Laparoscopic surveillance was carried out and there was very firm inflammatory adhesions in the right posterior lateral pericecal location. Using gentle blunt dissection the cecum was mobilized medially. There was then noted to be abscess pocket which was suctioned free aspirating thick pus. Ultimately the appendix was delivered from the lateral abdominal sidewall where it was densely adherent with evidence of well-formed necrotic abscess cavity involving the lateral pelvic sidewall and cecum. There was some firm induration to the cecum at the site of the abscess pocket. However, this appeared to be originating from the appendix. The appendix was liquefied necrosis with perforation. The mesoappendix was carefully divided with ERVIN ultrasonic harmonic daniel with care taken to coagulate the appendiceal artery. Dissection was carried down to the appendiceal base which appeared relatively uninflamed. The appendix was divided at its base with an endoscopic ABRAN linear cutting stapling device. This did require additional firing of the linear cutting stapler due to the attachments to the epiploic fat of the ileum. There was some oozing from the staple line and a single Hemoclip was applied for good hemostasis. Thorough irrigation and suctioning was performed with 3 L of warm saline. There appeared to be good hemostasis. 10 mm Lorne-Guillen drain was placed in the peritoneal cavity and exited through a right lower quadrant incision where it was secured with a 3-0 nylon horizontal mattress suture. Drain was positioned at the region of the abscess in the lateral cecal location. Trochars were then removed as CO2 pneumoperitoneum was evacuated. Fascia of the umbilicus was closed with multiple interrupted 0 Vicryl sutures. Local anesthetic was infiltrated into all incisions. Trocar skin incisions were closed with 4-0 Monocryl in a subcuticular fashion. Steri-Strips and dressings were applied. Condition
--- NOTE | 2019-07-03 12:33 | P.PN_ITS ---
[facility] Anesthesia Record Part I Intake, IV Amount: 450 Estimated blood loss (mL): 10 Urine output (mL): 50 Blood Products used (#): none Blood Pressure: 114/74 SaO2: 95 Pulse Rate: 65 Respiratory Rate: 20 Temperature: 97.2 F Patient is:: Drowsy, Nasal O2, Stable Stable to PACU at:: 12:26
--- NOTE | 2019-07-03 13:43 | P.PN_ITS ---
[facility] Anesthesia Record Part II Discharge Time: 12:56 Destination: Obstetric Gynecology Dept PACU nurse assessment reviewed?: Yes Patient Condition:: Good Anesthesia Complications:: None Swallowing reflex intact?: Yes Cyanosis?: No Blood Pressure: 113/70 Pulse Rate: 70 Temperature: 97.2 F Mental Status: Alert & Oriented Pain level:: 2 Nausea and/or vomitting:: None Intake, IV Amount: 20
[2019-07-03 15:33] LABS: Microscopic,Cath URINE MICROSCOPIC (MICROSCOPIC)
[2019-07-03 16:13] LABS: Appearance,Urine/Cath CLEAR (Clear); Bilirubin,Cath Negative (Negative); Blood, Urine/Cath TRACE-L (Negative); Color,Urine/Cath YELLOW (Yellow); Glucose,Urine/Cath (UA) Negative (Negative); Ketones,Urine/Cath Negative (Negative); Leukocyte Esterase,Cath Negative (Negative); Nitrate,Cath Negative (Negative); Protein,Urine/Cath Negative (Negative); Specific Gravity, Urine/Cath >= 1.030 (1.005-1.030)
--- NOTE | 2019-07-03 16:13 | P.CONPHA_ITS ---
[facility] Pharmacy VTE Monitoring - Patient Demographics Admission date: 07/02/19 Report Date: 07/03/19 Time: 16:13 Allergies/Adverse Reactions: Patient Allergies No Known Allergies Allergy (Verified 05/30/19 09:49) Height: 1.65 m Weight: 108.862 kg Patient Problems: Current Active Problems Acute appendicitis (Acute) - VTE Risk Labs: VTE Related Lab Results Hgb 13.6 g/dL (12.2-16.2) 07/03/19 08:55 Hct 40.3 % (37.0-47.0) 07/03/19 08:55 Plt Count 334 K/mm3 (142-424) 07/03/19 08:55 BUN 13 mg/dl (7-17) 07/03/19 08:55 Creatinine 0.70 mg/dl (0.52-1.04) 07/03/19 08:55 Estimated Creat Clear 191 mL/min (50-200) 07/03/19 08:55 Clinical Trial Participant: No - Prophylaxis VTE Prophylaxis Ordered?: Yes Types of VTE Prophylaxis: IPCS Knee High (POST OP)
--- NOTE | 2019-07-03 16:21 | SUR.OPER ---
pt received Invanz 1 gm IVPB @ 3692 per MD order
[2019-07-03 16:54] LABS: Bacteria,Urine/Cath TRACE /lpf; WBC,Urine/Cath Occasional #/hpf (0-3)
--- NOTE | 2019-07-03 19:05 | PC.NURSE ---
REPORT RECEIVED FROM Trupti SALAS RN.
--- NOTE | 2019-07-03 19:15 | PC.NURSE ---
PT VS OBTAINED. RN ASSISTED PT TO BR AND BACK VIA STAND BY ASSIST. PT TOLERATED WELL. VOIDED 425 ML CLEAR URINE.
--- NOTE | 2019-07-03 19:17 | PC.NURSE ---
PT MEDICATED PER EMAR AT THIS TIME RELATED TO PAIN 4/10 ON VERBAL SCALE.
--- NOTE | 2019-07-03 19:25 | PC.NURSE ---
PT ASSESSED AT THIS TIME. BILATERAL LUNG SOUNDS CLEAR. NO EDEMA NOTED. 4 LAP SITES C/D/I. RENETTA DRAIN INTACT AND DRAINING SEROSANGUINEOUS FLUID. PT STATES PAIN IS A 4/10 ON VERBAL SCALE R/T INCISIONS. DENIES ANY FURTHER NEEDS SITTING UP IN BED EATING BROTH.
--- NOTE | 2019-07-03 20:15 | PC.NURSE ---
PT SLEPT AT INTERVAL. STATES PAIN 02/16. VS OBTAINED AT THIS TIME. PT GIVEN AN ICENTIVE SPIROMETER AT THIS TIME AND TAUGHT HOW TO USE IT. PT KARLEY.
--- NOTE | 2019-07-03 22:24 | PC.NURSE ---
PT SLEPT AT INTERVAL. NEW BAG OF IV FLUIDS HUNG AT THIS TIME. PT MEDICATED PER EMAR R/T PAIN 4/10 ON VERBAL SCALE AT THIS TIME. PT REQUESTS WARM WATER AT THIS TIME DUE TO THROAT BEING SCRATCHY. DENIES ANY FURTHER NEEDS AT THIS TIME.
[2019-07-04] VITALS (8 sets, daily range): BP systolic 93–111; BP diastolic 53–70; PULSE 47–72; RESP 16–20; TEMP 36.4–36.7; O2SAT 95–98
--- NOTE | 2019-07-04 00:20 | PC.NURSE ---
VS OBTAINED AT THIS TIME. PT WAS SLEEPING. STATES HER PAIN IS VERY MILD RATING IT A 1/10 ON VERBAL SCALE. ICE PITCHER REFILLED. DENIES ANY FURTHER NEEDS AT THIS TIME. WILL CONTINUE TO OBSERVE.
--- NOTE | 2019-07-04 00:50 | PC.NURSE ---
PT AMBULATED TO BR AND BACK AT THIS TIME WITH STANDY BY ASSIST. URINE OUTPUT 350 ML CLEAR YELLOW, RENETTA EMPTIED AT THIS TIME 60 ML OUTPUT SEROSANGUINOUS FLUID.
--- NOTE | 2019-07-04 01:00 | PC.NURSE ---
PT MEDICATED PER EMAR AT THIS TIME. RATES PAIN 5/10 ON VERBAL SCALE.
--- NOTE | 2019-07-04 04:17 | PC.NURSE ---
PT SLEPT AT INTERVAL. PT VS OBTAINED AND REASSESSED AT THIS TIME. 4 LAP SITES AND RENETTA DRAIN NOTED. RENETTA DRAIN FLUID IS SEROSANGUINOUS, TELFA/ TEGADERM DRESSINGS C/D/I. BILATERAL LUNG SOUNDS CLEAR. NO EDEMA. NONPRODUCTIVE DRY COUGH THAT IS INTERMITTENT NOTED. PT STATES PAIN 2/10 AT THIS TIME BUT DENIES ANY MEDICATION. WILL CONTINUE TO OBSERVE.
--- NOTE | 2019-07-04 06:24 | PC.NURSE ---
PT MEDICATED PER EMAR AT THIS TIME R/T PAIN 4/10 ON VERBAL SCALE. NEW IV FLUIDS HUNG AT THIS TIME. PT DENIES ANY FURTHER NEEDS AT THIS TIME. WILL CONTINUE TO OBSERVE.
--- NOTE | 2019-07-04 06:34 | PC.NURSE ---
DR. HEARN AT BEDSIDE AT THIS TIME.
[2019-07-04 06:35] LABS: Chloride 104 mmol/L (98-107); Potassium 4.3 mmoL/L (3.5-5.1)
[2019-07-04 06:38] LABS: Blood Urea Nitrogen 10 mg/dl (7-17); Calcium 8.6 mg/dl (8.4-10.2); Carbon Dioxide 29 mmol/L (22.0-30.0); Creatinine Clearance Estimated 223 mL/min (50-200); Estimated Glomerular Filt Rate 113 ml/min (>60); GFR (African American) 137 ML/MIN (>60); Glucose 127 mg/dl (74-100)
[2019-07-04 06:49] LABS: Anion Gap 7.3 mEq/L (5-15); Sodium 136 mmol/L (136-145)
[2019-07-04 07:03] LABS: Monocytes # 0.5 K/mm3 (0.1-1.0)
--- NOTE | 2019-07-04 07:04 | PC.NURSE ---
REPORT GIVEN TO Kin BO RN AT THIS TIME.
--- NOTE | 2019-07-04 07:05 | PC.NURSE ---
REPORT RECEIVED FROM Karley LINDER RN
[2019-07-04 07:12] LABS: Basophils # 0.1 K/mm3 (0-0.2); Basophils % 0.5 % (0.1-2.0); Eosinophils % 0.1 % (0.1-12.0); Hematocrit 35.2 % (37.0-47.0); Lymphocytes # 0.9 K/mm3 (0.7-4.5); Lymphocytes % 7.2 % (10-50); MANUAL DIFFERENTIAL MANUAL DIFFERENTIAL (MANUAL DIFF); Mean Corpuscular HGB Conc 34.2 g/dL (31.8-35.4); Mean Corpuscular Hemoglobin 31.3 pg (27.0-31.2); Mean Corpuscular Volume 91.5 fl (81-99); Mean Platelet Volume 7.6 fl (7.4-10.4); Monocytes % 4.4 % (1.7-9.3); Neutrophils # 10.7 K/mm3 (1.8-7.8); Neutrophils % 87.7 % (37.0-80.0); Platelet Count 290 K/mm3 (142-424); Red Blood Count 3.84 M/mm3 (4.20-5.40); White Blood Count 12.2 K/mm3 (4.8-10.8)
--- NOTE | 2019-07-04 07:12 | P.PN_ITS ---
Subjective Narrative: Feels better. Some soreness. Has tolerated clear liquids. Exam Vital signs and Labs for Last 24 Hours: Temp Pulse Resp BP Pulse Ox 97.9 F 68 16 104/55 L 96 07/04/19 04:12 07/04/19 04:12 07/04/19 04:12 07/04/19 04:12 07/04/19 04:14 Laboratory Results - last 24 hr 07/03/19 08:25: Urine Color Yellow, Urine Appearance Clear, Urine pH 6.0, Ur Specific [place] 1.025, Urine Protein Negative, Urine Glucose (UA) Negative, Urine Ketones Negative, Urine Blood Trace-i, Urine Nitrate Negative, Urine Bilirubin Negative, Urine Urobilinogen 1.0, Ur Leukocyte Esterase Negative, Urine RBC 5-10, Urine WBC 5-10, Ur Squamous Epith Cells 5-10, Urine Bacteria 3+, Urine Mucus 1+ 07/03/19 08:25: Urine HCG, Qual Negative 07/03/19 08:55: WBC 9.6, RBC 4.38, Hgb 13.6, Hct 40.3, MCV 92.1, MCH 31.1, MCHC 33.7, RDW 12.9, Plt Count 334, MPV 7.1 L, Neut % (Auto) 77.8, Lymph % (Auto) 14.2, [place] % (Auto) 4.8, Eos % (Auto) 2.7, Baso % (Auto) 0.5, Neut # (Auto) 7.5, Lymph # (Auto) 1.4, [place] # (Auto) 0.5, Eos # (Auto) 0.3, Baso # (Auto) 0.1 07/03/19 08:55: Sodium 139, Potassium 4.1, Chloride 105, Carbon Dioxide 25, Anion Gap 13.1, BUN 13, Creatinine 0.70, Estimated Creat Clear 191, Estimated GFR 95, Est GFR ( Amer) 115, Glucose 107 H, Calcium 9.1, Total Bilirubin 0.6, AST 28, ALT 25, Alkaline Phosphatase 72, Total Protein 7.4, Albumin 3.9, Globulin 3.5 H, Albumin/Globulin Ratio 1.1 07/03/19 10:55: Urine Color Yellow, Urine Appearance Clear, Urine pH 6.0, Ur S pecific [place] >= 1.030, Urine Protein Negative, Urine Glucose (UA) Negative, Urine Ketones Negative, Urine Blood Trace-l, Urine Nitrate Negative, Urine Bilirubin Negative, Urine Urobilinogen 1.0, Ur Leukocyte Esterase Negative, Urine WBC Occasional, Ur Squamous Epith Cells 3-5, Urine Bacteria Trace 07/04/19 06:08: WBC 12.2 H D, RBC 3.84 L, Hgb 12.0 L D, Hct 35.2 L, MCV 91.5, MCH 31.3 H, MCHC 34.2, RDW 13.0, Plt Count 290, MPV 7.6, Neut % (Auto) 87.7 H, Lymph % (Auto) 7.2 L, [place] % (Auto) 4.4, Eos % (Auto) 0.1, Baso % (Auto) 0.5, Neut # (Auto) 10.7 H, Lymph # (Auto) 0.9, [place] # (Auto) 0.5, Eos # (Auto) 0.0, Baso # (Auto) 0.1 07/04/19 06:08: Sodium 136, Potassium 4.3, Chloride 104, Carbon Dioxide 29, Anion Gap 7.3, BUN 10, Creatinine 0.60, Estimated Creat Clear 223, Estimated GFR 113, Est GFR ( Amer) 137, Glucose 127 H, Calcium 8.6 I & O for Last 24 hours: Intake & Output 07/01/19 07/02/19 07/03/19 07/04/19 11:59 11:59 11:59 11:59 Intake Total 470 / 470 Output Total 1565 / 1565 Balance -1095 / -1095 Weight 240 lb - *Routine Abdominal Exam Present: soft Progress Note: A&P Assessment and Plan for All Diagnoses:: Continue IV antibiotics for abscessed necrotic appendix with peritonitis. Monitor drain output. Likely ultimately discharge on IV Invanz.
--- NOTE | 2019-07-04 07:30 | PC.NURSE ---
PATIENT ADVANCED TO FULL DIET THIS AM. ABLE TO AMBULATE WITHOUT ASSISTANCE THIS MORNING. IV INFUSING WITHOUT DIFFICULTY. REPORTS PAIN IS TOLERABLE AFTER MEDS (MD PRESSED ON STOMACH AND SHE SAID THAT GOT IT HURTING, BUT DENIED NEED FOR ANY MEDS). RENETTA DRAIN IN PLACE AND DRAINING SEROSANG DRAINAGE. NO CURRENT NEEDS. PATIENT IS GOING TO EAT BREAKFAST.
--- NOTE | 2019-07-04 11:00 | PC.NURSE ---
patient requesting something for pain. Med not due until 8900. will call
--- NOTE | 2019-07-04 11:06 | PC.NURSE ---
attempted to call dr. frey office- no answer.
[2019-07-04 12:29] LABS: Lymphocytes % 7 % (10-50); Monocytes % 4 % (2-9); Neutrophils % 89 % (42-76); Platelet Estimate Normal; Total Cells Counted 100
[2019-07-04 12:30] LABS: RBC Morphology Normal
--- NOTE | 2019-07-04 15:45 | PC.NURSE ---
NO CHANGES NOTED ON PATIENT ASSESSMENT. LUNGS CTA AND BOWEL SOUNDS ACTIVE X4. PT DECLINES PASSING GAS TODAY. [address] NO DRAINAGE NOTED. RENETTA DRAIN IN PLACE DRAINING SEROSANG DRAINAGE. IV INFUSING WITHOUT DIFFICULTY. PULSES 2+ AND NO EDEMA NOTED. PT REPORTS PAIN A 4/10 DECLINES NEEDS FOR MEDICATION. PLAN IS TO GET PATIENT UP AND SHOWER AFTER LUNCH. PT AGREEABLE. NO FURTHER NEEDS
--- NOTE | 2019-07-04 18:15 | PC.NURSE ---
pt up to shower now. medicated for pain per mar before hand. pt states she is passing gas now. Nurse changing linens.
--- NOTE | 2019-07-04 18:40 | PC.NURSE ---
Dressing change done. 4 lap sites. no drainage noted. steristrip on all of them and covered with telfa and tegaderm. bessy drainage in place with suture no drainage around it. new dressing applied. pt tolerated well. emptied bessy drain- 30ml of serosang drainage
--- NOTE | 2019-07-04 19:05 | PC.NURSE ---
REPORT RECEIVED FROM Kin BO RN.
--- NOTE | 2019-07-04 19:53 | PC.NURSE ---
PT ASSESSED AT THIS TIME. VSS. PT DENIES ANY PAIN AT THIS TIME. BILATERAL LUNG SOUNDS CLEAR. PT HAS AN INTERMITTENT COUGH THAT IS NONPRODUCTIVE. C/O HOARSENESS AND FEELING LIKE SOMETHING IS STUCK IN HER THROAT. NO EDEMA NOTED. BOWEL SOUNDS NORMAL. STATES SHE HAS BEEN PASSING GAS BUT NO BM YET. ABD HAS 4 LAP SITES THAT ARE STERI STRIPPED AND DRESSED WITH NONSTICK TELFA AND TEGADERM. DRESSING ARE C/D/I. RENETTA DRAIN IS INTACT AND FREELY DRAINING SEROSANGUINOUS FLUID. ABD IS TENDER BUT SOFT. WILL CONTINUE TO OBSERVE.
--- NOTE | 2019-07-04 21:18 | PC.NURSE ---
PT AMBULATING TO BR AND BACK AT THIS TIME INDEPENDENTLY. TOLERATED WELL. DENIES ANY FURTHER NEEDS AT THIS TIME.
--- NOTE | 2019-07-04 23:45 | PC.NURSE ---
NEW BAG OF IV FLUIDS HUNG AT THIS TIME. PT DENIES ANY FURTHER NEEDS AT THIS TIME. LYING IN BED WATCHING TV.
[2019-07-05] VITALS: BP 107/56; PULSE 60; RESP 16; TEMP 36.5; O2SAT 96
--- NOTE | 2019-07-05 00:20 | PC.NURSE ---
PT MEDICATED PER EMAR AT THIS TIME R/T PAIN. STATES PAIN IS 3/10 ON VERBAL SCALE BUT GETS WORSE WHEN SHE MOVES. DENIES ANY FURTHER NEEDS AT THIS TIME. WILL CONTINUE TO OBSERVE.
[2019-07-05 04:00] VITALS: BP 116/64; PULSE 60; RESP 16; TEMP 36.4; O2SAT 96
--- NOTE | 2019-07-05 04:22 | PC.NURSE ---
PT VSS. PT DENIES ANY PAIN AT THIS TIME. BILATERAL LUNG SOUNDS CLEAR. NO EDEMA NOTED. FOUR LAP SITE DRESSINGS ARE C/D/I. BOWEL SOUNDS ACTIVE. PT SLEPT AT INTERVAL. RENETTA DRAIN EMPTIED AT THIS TIME. 40 ML OF SEROSANGUINOUS FLUID. PT DENIES ANY FURTHER NEEDS AT THIS TIME. WILL CONTINUE TO OBSERVE.
--- NOTE | 2019-07-05 06:19 | XR_ITS ---
PROCEDURE: XR CHEST PORTABLE PICC PLAC CLINICAL HISTORY: Confirm PICC line placement COMPARISON: CXR CHEST(2 VIEWS-NOT PORTABLE) from 04/09/2016 CXR2V XR chest 2V from 02/20/2017 FINDINGS: The cardiomediastinal silhouette and pulmonary vascularity are within normal limits. Left upper extremity PICC line has been placed. The tip is in good position in the region of the superior vena cava. There are mild atelectatic changes in the left lower lobe No acute bony abnormalities. IMPRESSION: PICC line tip in good position Dictated by: Gorge Clarke MD 07/05/2019 10:25 Electronically signed by Gorge Clarke MD in [facility] 07/05/2019 10:25
--- NOTE | 2019-07-05 06:25 | PC.NURSE ---
DR. TEMPLETON AT BEDSIDE AT THIS TIME.
--- NOTE | 2019-07-05 06:29 | PC.NURSE ---
DR. TEMPLETON AT NURSES STATION STATING THAT HE REMOVED TWO UPPER TEGADERM TELFA DRESSING AND THAT HE WOULD LIKE THEM TO STAY OPEN TO AIR THE ONLY ONE THAT SHOULD NEED A DRESSING IS THE SITE WITH THE RENETTA DRAIN. STATES TO DRESS IT WITH FOUR BY FOURS AND TAPE. STATES THAT HE IS GOING TO PUT IN AN ORDER FOR A SOFT DIET. ALSO IS GOING TO PUT A CONSULT FOR A PICC SO WHEN PT GOES HOME ON ABX.
--- NOTE | 2019-07-05 06:47 | PC.NURSE ---
PT MEDICATED PER EMAR AT THIS TIME R/T PAIN 3/10 ON VERBAL SCALE. RENETTA DRAIN EMPTIED 30 ML SEROSANGUINOUS. 500 ML OUT URINE. DENIES ANY FURTHER NEEDS AT THIS TIME.
--- NOTE | 2019-07-05 06:49 | HMH.GSPN ---
Subjective Patient reports: no new complaints (She is tolerating full liquids and is feeling better ) Exam Vital signs and Labs for Last 24 Hours: Temp Pulse Resp BP Pulse Ox 97.6 F 60 16 116/64 96 07/05/19 04:00 07/05/19 04:00 07/05/19 04:00 07/05/19 04:00 07/05/19 04:00 Laboratory Results - last 24 hr 07/04/19 06:08: WBC 12.2 H D, RBC 3.84 L, Hgb 12.0 L D, Hct 35.2 L, MCV 91.5, MCH 31.3 H, MCHC 34.2, RDW 13.0, Plt Count 290, MPV 7.6, Neut % (Auto) 87.7 H, Lymph % (Auto) 7.2 L, [place] % (Auto) 4.4, Eos % (Auto) 0.1, Baso % (Auto) 0.5, Neut # (Auto) 10.7 H, Lymph # (Auto) 0.9, [place] # (Auto) 0.5, Eos # (Auto) 0.0, Baso # (Auto) 0.1, Total Counted 100, Neutrophils % (Manual) 89 H, Lymphocytes % (Manual) 7 L, Monocytes % (Manual) 4, Platelet Estimate Normal, RBC Morphology Normal 07/04/19 06:08: Sodium 136, Potassium 4.3, Chloride 104, Carbon Dioxide 29, Anion Gap 7.3, BUN 10, Creatinine 0.60, Estimated Creat Clear 223, Estimated GFR 113, Est GFR ( Amer) 137, Glucose 127 H, Calcium 8.6 I & O for Last 24 hours: Intake & Output 07/02/19 07/03/19 07/04/19 07/05/19 11:59 11:59 11:59 11:59 Intake Total 470 / 470 Output Total 2115 / 2115 1120 / 1120 Balance -1645 / -1645 -1120 / -1120 Weight 240 lb Microbiology Reports for the Last 24 Hours: Microbiology 07/03/19 08:25 Urine,Clean Catch Urine Culture - Preliminary - Constitutional no acute distress - *Routine Respiratory Exam Absent: respiratory distress - *Routine Cardiovascular Exam Present: RRR - *Routine Abdominal Exam Present: soft Comments: Incisions clean, dry, and intact. No cellulitis. RENETTA drain output somewhat cloudy Progress Note: A&P (1) Perforated appendicitis Status: Acute Assessment and plan: Overall, doing well status post laparoscopic appendectomy PICC consult (need for outpatient IV antibiotics) Soft diet Continue RENETTA for now Current Visit: Yes
--- NOTE | 2019-07-05 07:01 | PC.NURSE ---
REPORT GIVEN TO Rakesh FELIPE RN.
[2019-07-05 08:00] VITALS: BP 115/74; PULSE 75; RESP 18; TEMP 36.7; O2SAT 95
[2019-07-05 16:00] VITALS: BP 117/71; PULSE 53; RESP 18; TEMP 36.6; O2SAT 100
--- NOTE | 2019-07-05 16:25 | PC.NURSE ---
no acute changes to note from previous assessment. tolerating soft diet well. bs x4. no n/v. PICC line placed in left AC today and after placement was verified IV fluids began via this site. minimal pain today. has only taken one oral dose of pain medication. voiding large amount of clear yellow urine. 110 total volume out of bessy. bessy draining cloudy yellow tinged fluid. no acute distress noted. ambulates often in room without assist.
--- NOTE | 2019-07-05 19:11 | PC.NURSE ---
REPORT GIVEN TO DEEJAY MORENO RN
[2019-07-05 20:45] VITALS: BP 112/68; PULSE 76; RESP 18; TEMP 36.8; O2SAT 97
--- NOTE | 2019-07-05 20:45 | PC.NURSE ---
PT HAS BEEN UP TO BATHROOM SEVERAL TIMES TONIGHT.PT REPORTS ONLY SORENESS WITH MOVEMENT.RATES PAIN ABOUT A 3 ON SCALE OF 0-10.DENIES ANY NEED FOR PAIN MEDICINE AT THIS TIME.TOLD HER WOULD BE BACK AROUND 2200 TO SEE IF SHE WANTED MEDICINE AT THIS TIME AND SHE SAID OK.
--- NOTE | 2019-07-05 22:06 | PC.NURSE ---
MEDICATED PT WITH NORCO 5/325MG PO FOR PAIN OF 4 ON SCALE OF 0-10
--- NOTE | 2019-07-05 22:30 | PC.NURSE ---
PAIN OK.PT RESTING IN BED.STATES PAIN ABOUT A 2 NOW,NO NEEDS OR CONCERNS VOICED
[2019-07-06 00:13] VITALS: BP 114/68; PULSE 56; RESP 18; TEMP 36.7; O2SAT 97
--- NOTE | 2019-07-06 03:00 | PC.NURSE ---
PT SLEEPING SOUNDLY IN BED.RESP.EVEN AND UNLABORED
[2019-07-06 04:34] VITALS: BP 121/80; PULSE 66; RESP 18; TEMP 36.6; O2SAT 97
--- NOTE | 2019-07-06 05:00 | PC.NURSE ---
PT HAS SLEPT OFF AND ON THROUGHOUT THE NIGHT.PT HAS BEEN UP TO BATHROOM FREQ.3500ML OUTPUT OF CLEAR YELLOW URINE.LUNGS CLEAR,RESP.EVEN AND UNLABOREDNO NEW DRAINAGE TO 4 LAP SITES,80ML OF CLOUDY YELLOW DRAINAGE EMPTIED FROM RENETTA.PT HAS HAD A BOWEL MOVEMENT THIS MORNING AND PASSED A LITTLE GAS.PT HAS BEEN MEDICATED X2 TONIGHT
--- NOTE | 2019-07-06 07:55 | SW/DCPLANNER ---
SPOKE WITH DR HEARN THIS MORNING REGARDING DISCHARGE PLANS FOR THIS PATIENT: PATIENT IS GOING TO NEED IV ANTIBIOTICS POST DISCHARGE AND HAS ALREADY HAD A PICC INSERTED... I SPOKE WITH HER ABOUT WHETHER SHE WISHES TO COME INTO THE OUT PATIENT DEPT TO GET HER ANTIBIOTIC OR HOME HEALTH AND SHE WISHES TO COME BACK TO [facility]...WILL GET OUT PATIENT ORDER AND PATIENT WILL DISCHARGE LATER TODAY AND START OUT PATIENT SERVICES IN THE AM (SAT)...
[2019-07-06 07:59] VITALS: BP 113/66; PULSE 71; RESP 18; TEMP 36.5; O2SAT 95
--- NOTE | 2019-07-06 08:33 | HMH.DCSUM ---
General - General Admission date:: 07/03/19 Discharge date: 07/06/19 HPI HPI: Patient is a 34-year-old female who presented to the emergency department with up to a week of some right lower quadrant aching pain. She states that initially she felt that she may have pulled a muscle. However it became progressively severe and she presented to the emergency department where she was seen and evaluated. CT scan revealed findings consistent with complicated possibly perforated abscessed appendicitis. Surgical consultation was obtained. Hospital Course Hospital Course: Patient was taken to the operating room at which time she was found to have partially retrocecal walled off abscessed necrotic perforated appendicitis. This was able to be removed and drained laparoscopically. She did have a RENETTA drain placed in the lateral cecal location. Abscess wall appeared to involve the lateral cecum wall. Please see operative dictation for complete details. Even the severity of her appendicitis and complex nature she was given a dose of Invanz intraoperatively. She was admitted for inpatient management and continued on Invanz postoperatively for established peritonitis with abscess. She was doing quite well as an inpatient. Her diet was quickly advanced from clear liquids to full liquids. RENETTA drain remained serous. She convalesced well and arrangements were made for discharge on postoperative day #3. Her RENETTA drain was removed prior to discharge. Plan was made to continue for a total of a 10-day course of IV Invanz to complete her course for complicated established peritonitis with intra-abdominal abscess. Objective Vital signs: Temp Pulse Resp BP Pulse Ox 97.7 F 71 18 113/66 95 07/06/19 07:59 07/06/19 07:59 07/06/19 07:59 07/06/19 07:59 07/06/19 07:59 DS: Diagnosis - Discharge Diagnosis (1) Perforated appendicitis Status: Acute Discharge Plan - Patient Discharge Instructions ACTIVITY: No heavy lifting DIET: advance to your usual diet Patient Instructions: DI for Acute Abdomen - Follow up Plan Follow up with: Bill Valencia MD [Primary Care Provider] - Herminio Seymour MD [Staff Physician] - 1 week Disposition: Home, Self-Senior Care Medications: Home Medications Medication Instructions Recorded Confirmed Type prenat.vits,sidney,cje-xijj-bunwd 1 tab PO DAILY 09/20/18 07/03/19 History Ferrous Sulfate 325 mg PO DAILY 03/10/19 07/03/19 History Metoclopramide HCl [Metoclopramide 5 mg PO QID 07/03/19 07/03/19 History 5mg Tab] Norethindrone 0.35 mg PO DAILY 07/03/19 07/03/19 History Ertapenem Sodium [Invanz 1gm Vial] 1 gm IV DAILY 6 Days #6 vial 07/06/19 Rx Hydrocod/Acet 5/325 mg [[place]rose 1 - 2 tab PO Q6HP PRN #21 tab 07/06/19 Rx 5/325mg tablet] Prescriptions/Medication Reconciliation: New Hydrocod/Acet 5/325 mg [[place] 5/325mg tablet] 1 - 2 tab PO Q6HP PRN #21 tab PRN Reason: Moderate Pain Ertapenem Sodium [Invanz 1gm Vial] 1 gm IV DAILY 6 Days #6 vial Continued prenat.vits,sidney,lsd-nspe-vozid 1 tab PO DAILY Ferrous Sulfate 325 mg PO DAILY Metoclopramide HCl [Metoclopramide 5mg Tab] 5 mg PO QID Norethindrone 0.35 mg PO DAILY - Problem Reconciliation Problems Reviewed?: Yes
== END 2019-07-06 10:30 | disposition home or self-care (01) | DRG 340 ==
LOC: ER 09:50 → SDC 10:50 → 2ND 10:52 → OB 14:04
PROVIDERS: Admitting Provider Surgery; Emergency Provider Family Medicine; PCP Family Medicine; Visit Provider Surgery
PROC: 0DTJ4ZZ Resection of Appendix, Percutaneous Endoscopic Approach (ICD-10-PCS; CPT 44970; principal; 2019-07-03 10:30)
DX: K35.33 Acute appendicitis with perforation, localized peritonitis, and gangrene, with abscess (principal); Z72.0 Tobacco use
CPT/HCPCS: 44970; 36415; 36569; 71045; 74176; 80048; 80053; 81001; 81025; 85007; 85025; 87086; 94761; 99284; C1751; J1335; J2405; J2710

== ENCOUNTER → 2019-07-07 09:55 | Outpatient (CLI) | payer OTHER, SELFPAY ==
[2019-07-07 11:09] VITALS: BP 132/79; PULSE 83; RESP 16; TEMP 36.8; O2SAT 97
[2019-07-07 11:40] VITALS: BP 137/74; PULSE 75; RESP 16; TEMP 36.8; O2SAT 96
== END ==
PROVIDERS: PCP Family Medicine; Visit Provider Surgery
DX: K35.32 Acute appendicitis with perforation, localized peritonitis, and gangrene, without abscess (principal)
CPT/HCPCS: 96365; G0463; J1335

== ENCOUNTER → 2019-07-08 10:08 | Outpatient (CLI) | payer OTHER, SELFPAY ==
[2019-07-08 10:24] VITALS: BP 137/64; PULSE 90; RESP 14; TEMP 36.8; O2SAT 100
[2019-07-08 11:04] VITALS: BP 123/74; PULSE 94; RESP 12; TEMP 36.6; O2SAT 100
== END ==
PROVIDERS: PCP Family Medicine; Visit Provider Surgery
DX: K35.32 Acute appendicitis with perforation, localized peritonitis, and gangrene, without abscess (principal)
CPT/HCPCS: 96365; G0463; J1335

== ENCOUNTER 2019-07-09 10:06 | Outpatient (CLI) | payer OTHER, SELFPAY ==
[2019-07-09 10:10] VITALS: BP 127/90; PULSE 84; RESP 18; O2SAT 100
[2019-07-09 10:55] VITALS: BP 137/84; PULSE 82; RESP 18; O2SAT 100
== END 2019-07-09 10:55 | disposition home or self-care (01) ==
LOC: INF 10:06
PROVIDERS: Visit Provider Surgery
DX: K35.80 Unspecified acute appendicitis (principal)
CPT/HCPCS: 96365; J1335

== ENCOUNTER 2019-07-10 09:51 | Outpatient (CLI) | payer OTHER, SELFPAY ==
[2019-07-10 10:00] VITALS: BP 115/66; PULSE 85; RESP 18; TEMP 36.4; O2SAT 95
[2019-07-10 10:55] VITALS: BP 120/64; PULSE 80; RESP 18; TEMP 36.4; O2SAT 95
== END 2019-07-10 10:55 | disposition home or self-care (01) ==
LOC: INF 09:52
PROVIDERS: Visit Provider Surgery
DX: K35.32 Acute appendicitis with perforation, localized peritonitis, and gangrene, without abscess (principal)
CPT/HCPCS: 96365; J1335

== ENCOUNTER 2019-07-11 10:13 | Outpatient (CLI) | payer OTHER, SELFPAY ==
[2019-07-11 10:23] VITALS: BP 126/81; PULSE 88; RESP 18; TEMP 36.3; O2SAT 99
[2019-07-11 11:07] VITALS: BP 121/79; PULSE 84; RESP 18; O2SAT 98
== END 2019-07-11 11:07 | disposition home or self-care (01) ==
LOC: INF 10:14
PROVIDERS: Visit Provider Surgery
DX: K35.32 Acute appendicitis with perforation, localized peritonitis, and gangrene, without abscess (principal)
CPT/HCPCS: 96365; J1335

== ENCOUNTER 2019-07-12 10:03 | Outpatient (CLI) | payer OTHER, SELFPAY ==
[2019-07-12 10:12] VITALS: BP 121/69; PULSE 84; RESP 18; TEMP 36.3; O2SAT 99
== END 2019-07-12 11:10 | disposition home or self-care (01) ==
LOC: INF 10:03
PROVIDERS: Visit Provider Surgery
DX: K35.80 Unspecified acute appendicitis (principal)
CPT/HCPCS: 96365; J1335

== ENCOUNTER 2019-07-13 11:10 | Outpatient (CLI) | payer OTHER, SELFPAY ==
[2019-07-13 11:20] VITALS: BP 137/77; PULSE 86; RESP 18
== END 2019-07-13 11:20 | disposition home or self-care (01) ==
LOC: INF 13:37
PROVIDERS: Visit Provider Surgery
DX: K35.32 Acute appendicitis with perforation, localized peritonitis, and gangrene, without abscess (principal)
CPT/HCPCS: G0463

== ENCOUNTER → 2019-07-20 10:49 | Outpatient (CLI) | payer OTHER, SELFPAY ==
--- NOTE | 2019-07-20 10:49 | CT_ITS ---
PROCEDURE: CT ABDOMEN PELVIS W CON CLINICAL INDICATION: fu from appendicitis Follow-up appendiceal abscess, abdominal pain COMPARISON: CT ABDOMEN PELVIS WO CON from 07/03/2019 TECHNIQUE: IV Contrast: 75ML OPTIRAY 350 Oral Contrast 450ml Redicat Axial images obtained with sagittal and coronal reformats. All CT scans at the facility use one or more dose reduction, viz: automated exposure control, ma/kV adjustment per patient size (including targeted exams where dose is matched to indication, i.e. head), or iterative reconstruction technique. FINDINGS: LOWER THORAX: No acute finding ABDOMEN & PELVIS: The liver, gallbladder, spleen, adrenal glands, pancreas, and kidneys have an unremarkable appearance. There postsurgical changes from the recent appendectomy. There is some minimal thickening in the cecal region with some mild thickening of the bowel loops in the right lower quadrant. Small amount of fluid is present in the right lower quadrant. However, no abscess is evident. There is a 2 cm left ovarian cyst and a small amount of fluid in the cul-de-sac. No intestinal obstruction or free air. IMPRESSION: 1. Status post appendectomy. No evidence of residual abscess. 2. Postsurgical changes in the right lower quadrant with a small amount of fluid in the cul-de-sac. Dictated by: Gorge Clarke MD 07/20/2019 17:27 Electronically signed by Gorge Clarke MD in [facility] 07/20/2019 17:27
== END ==
PROVIDERS: PCP Family Medicine; Visit Provider Surgery
DX: K35.80 Unspecified acute appendicitis (principal)
CPT/HCPCS: 74177; Q9967

== ENCOUNTER → 2019-11-15 10:46 | Outpatient (CLI) | payer OTHER, SELFPAY ==
[2019-11-15 13:38] LABS: HCG,Quantitative 3452 mIU/ml (0-5.42)
== END ==
PROVIDERS: Visit Provider Nurse Practitioner Obstetrics & Gynecology
DX: Z32.00 Encounter for pregnancy test, result unknown (principal)
CPT/HCPCS: 36415; 84702

== ENCOUNTER → 2019-11-23 09:11 | Outpatient (CLI) | payer OTHER, SELFPAY ==
--- NOTE | 2019-11-23 09:11 | US_ITS ---
PROCEDURE: US OB <= 14 WEEKS FETUS CLINICAL INDICATION: for dates COMPARISON: US US OB /MATERNAL DETAIL from 12/04/2018 FINDINGS: An intrauterine gestational sac is present with a pole with a crown-rump length of 0.33cm correlating to gestational age of 6weeks. heart tones are present with an FHR of 115bpm. Yolk sac is noted. There are 2 left ovarian cysts each measuring 12 mm. There is a small amount fluid in the cul-de-sac. IMPRESSION: Live IUP at 6 weeks. Estimated due date by Ultrasound is 07/18/2020 Dictated by: Gorge Clarke MD 11/23/2019 11:25 Gorge Clarke MD in [facility] 11/23/2019 11:25
== END ==
PROVIDERS: PCP Family Medicine; Visit Provider Nurse Practitioner Obstetrics & Gynecology
DX: Z34.90 Encounter for supervision of normal pregnancy, unspecified, unspecified trimester (principal)
CPT/HCPCS: 76801

== ENCOUNTER → 2019-11-27 14:27 | Outpatient (CLI) | payer OTHER, SELFPAY ==
[2019-11-27 15:13] LABS: Basophils % 0.3 % (0.1-2.0); Eosinophils # 0.2 K/mm3 (0.0-0.4); Eosinophils % 2.3 % (0.1-12.0); Hematocrit 41.6 % (37.0-47.0); Hemoglobin 13.8 g/dL (12.2-16.2); Lymphocytes # 1.9 K/mm3 (0.7-4.5); Lymphocytes % 24.5 % (10-50); Mean Corpuscular HGB Conc 33.2 g/dL (31.8-35.4); Mean Corpuscular Hemoglobin 29.9 pg (27.0-31.2); Mean Corpuscular Volume 89.9 fl (81-99); Mean Platelet Volume 7.5 fl (7.4-10.4); Monocytes # 0.4 K/mm3 (0.1-1.0); Monocytes % 5.3 % (1.7-9.3); Neutrophils # 5.4 K/mm3 (1.8-7.8); Neutrophils % 67.7 % (37.0-80.0); Platelet Count 261 K/mm3 (142-424); Red Blood Count 4.63 M/mm3 (4.20-5.40); Red Cell Distribution Width 13.3 % (11.5-17.5); White Blood Count 7.9 K/mm3 (4.8-10.8)
[2019-11-29 11:12] LABS: HIV Screen 4th Generation wRfx Non Reactive (Non Reactive); Hepatitis B Surface Antigen Negative (Negative); Hepatitis C Antibody <0.1 s/co ratio (0.0-0.9); Rubella Antibodies, IgG 8.87 index (Immune >0.99)
[2019-11-29 12:16] LABS: Rapid Plasma Reagin Ab Titer Non Reactive (NonRea<1:1)
== END ==
PROVIDERS: Visit Provider Nurse Practitioner Obstetrics & Gynecology
DX: Z34.90 Encounter for supervision of normal pregnancy, unspecified, unspecified trimester (principal)
CPT/HCPCS: 36415; 85025; 86592; 86703; 86762; 86850; 87340; 87380; G0432

== ENCOUNTER → 2019-12-18 17:07 | Outpatient (CLI) | payer OTHER, SELFPAY ==
[2019-12-18 21:28] LABS: Coronavirus 19 IgG Antibody Negative (Negative); Coronavirus 19 IgM Antibody Negative (Negative)
== END ==
PROVIDERS: Visit Provider Nurse Practitioner Obstetrics & Gynecology
DX: Z34.90 Encounter for supervision of normal pregnancy, unspecified, unspecified trimester (principal); R05 Cough; R09.89 Other specified symptoms and signs involving the circulatory and respiratory systems; Z03.818 Encounter for observation for suspected exposure to other biological agents ruled out
CPT/HCPCS: 36415; 86328

== ENCOUNTER → 2019-12-31 14:59 | Outpatient (CLI) | payer OTHER, SELFPAY | PROVIDERS: Visit Provider Nurse Practitioner Obstetrics & Gynecology | DX: Z36.0 Encounter for antenatal screening for chromosomal anomalies (principal) | CPT/HCPCS: 36415 ==

== ENCOUNTER → 2020-01-22 17:34 | Outpatient (CLI) | payer OTHER, SELFPAY ==
[2020-01-22 17:36] LABS: Microscopic, Urine URINE MICROSCOPIC (MICROSCOPIC)
[2020-01-22 18:59] LABS: Appearance,Urine CLEAR (Clear); Bilirubin,Urine Negative (Negative); Blood, Urine TRACE-I (Negative); Color,Urine YELLOW (Yellow); Glucose,Urine (UA) Negative (Negative); Ketones,Urine Negative (Negative); Leukocyte Esterase,Urine Negative (Negative); Nitrate,Urine POSITIVE (Negative); Protein,Urine TRACE (Negative); Specific Gravity, Urine >= 1.030 (1.005-1.030); Urobilinogen,Urine 0.2 EU/dl (0.2)
[2020-01-22 20:10] LABS: Bacteria,Urine 2+ /lpf
== END ==
PROVIDERS: Visit Provider Nurse Practitioner Obstetrics & Gynecology
DX: Z34.90 Encounter for supervision of normal pregnancy, unspecified, unspecified trimester (principal); N39.0 Urinary tract infection, site not specified; Z3A.14 14 weeks gestation of pregnancy
CPT/HCPCS: 81001; 87086; 87088; 87186

== ENCOUNTER → 2020-02-29 13:44 | Outpatient (CLI) | payer OTHER, SELFPAY ==
--- NOTE | 2020-02-29 13:44 | US_ITS ---
PROCEDURE: US OB /MATERNAL DETAIL CLINICAL INDICATION: 20 wk gestation of Anatromy scan COMPARISON: US US OB <= 14 WEEKS FETUS from 11/23/2019 FINDINGS: Single viable intrauterine gestation. Breech position. Placenta: Anteriorplacenta grade 1. There is average amount fluid. The cervix appears satisfactory. Complete survey performed and was unremarkable on the submitted images as in PACS. No discrete anomalies identified on survey imaging by technologist. Active fetus. Three-vessel cord with satisfactory umbilical cord insertion. 4- chamber heart noted. Survey of brain & ventricles Unremarkable. Face and neck survey unremarkable. Diaphragm and chest views unremarkable. Abdomen: Both kidneys noted and unremarkable. Stomach noted and satisfactory. Spine: Survey of the spine satisfactory with no anomalies identified nor imaged. Both arms and legs noted. Amniotic Fluid: Adequate. Maternal adnexa: No significant findings. Measurements: Average ultrasound age 20weeks. Gestational Age 20weeks 0days Estimated due date by ultrasound age 0607/18/2020. Estimated weight 322g BPD = 19weeks 6days OFD = 20weeks 5days HC = 19weeks 5days AC = 20weeks 2days FL = 19weeks 6days Growth Percentile= 41Percent% Heart Rate = 149bpm Cerebellum = 20weeks 2days Humerus = 20weeks 2days HC/AC is 1.14 CI is 0.74 FL/BPD is 0.69 FL/AC is 0.21 IMPRESSION: Live IUP in breech presentation with an average ultrasound age 20 weeks 0 days. No obvious anomalies. Please see above for detail. Dictated by: Gorge Clarke MD 03/01/2020 10:42 Gorge Clarke MD in [facility] 03/01/2020 10:42
== END ==
PROVIDERS: PCP Family Medicine; Visit Provider Nurse Practitioner Obstetrics & Gynecology
DX: Z34.90 Encounter for supervision of normal pregnancy, unspecified, unspecified trimester (principal); Z3A.20 20 weeks gestation of pregnancy
CPT/HCPCS: 76811

== ENCOUNTER → 2020-04-15 10:09 | Outpatient (CLI) | payer OTHER, SELFPAY ==
[2020-04-15 10:49] LABS: Glucose,Fasting 84 mg/dl (74-100)
[2020-04-15 13:15] LABS: Glucose 1 Hour 153 mg/dL (74-100)
== END ==
PROVIDERS: Visit Provider Nurse Practitioner Obstetrics & Gynecology
DX: Z34.90 Encounter for supervision of normal pregnancy, unspecified, unspecified trimester (principal)
CPT/HCPCS: 36415; 82951

== ENCOUNTER → 2020-04-30 08:04 | Outpatient (CLI) | payer OTHER, SELFPAY ==
[2020-04-30 09:45] LABS: Glucose,Fasting 92 mg/dl (74-100)
[2020-04-30 10:17] LABS: Glucose 1 Hour 140 mg/dL (74-100)
[2020-04-30 10:56] LABS: Glucose 2 Hour 117 mg/dL (74-100)
[2020-04-30 12:28] LABS: Glucose 3 Hour 63 mg/dL (74-100)
== END ==
PROVIDERS: Visit Provider Nurse Practitioner Obstetrics & Gynecology
DX: Z34.90 Encounter for supervision of normal pregnancy, unspecified, unspecified trimester (principal)
CPT/HCPCS: 36415; 82951

== ENCOUNTER → 2020-05-12 17:22 | Outpatient (CLI) | payer OTHER, SELFPAY | PROVIDERS: Visit Provider Nurse Practitioner Obstetrics & Gynecology | DX: N39.0 Urinary tract infection, site not specified (principal) | CPT/HCPCS: 87086; 87088; 87186 ==

== ENCOUNTER → 2020-06-24 16:59 | Outpatient (CLI) | payer OTHER, SELFPAY | PROVIDERS: Visit Provider Nurse Practitioner Obstetrics & Gynecology | DX: Z34.90 Encounter for supervision of normal pregnancy, unspecified, unspecified trimester (principal) | CPT/HCPCS: 86403 ==

== ENCOUNTER → 2020-06-25 13:59 | Outpatient (CLI) | payer OTHER, SELFPAY ==
--- NOTE | 2020-06-25 14:02 | US_ITS ---
PROCEDURE: US OB BIOPHYSICAL PROFILE CLINICAL INDICATION: LGA Large for gestational age TECHNIQUE: FINDINGS: Single live fetus is present in the cephalic presentation. heart body motion noted. The cervix is closed and measures 4 cm. The placenta is anterior and grade 1. FABIAN is normal at 13 cm the following parameters are obtained: Average ultrasound age is Average 38weeks 3days Estimated due date by ultrasound is 07/06/2020. Estimated weight is 3,517g. This is 93 percentile indicating large for gestational age. BPD: 9.4cm OFD: 11.5cm HC: 33cm AC: 34.9cm FL: 7.5cm heart rate: 155bpm bpm. HC/AC: 0.95 Cephalic index: 0.81 FL/BPD: 0.8 FL/AC: 0.22 Amniotic fluid index: 13.24cm Qualitative AFV: 2 breathing movements: 2 Gross body movements: 2 Tone: 2 Biophysical profile score: 8 IMPRESSION: Live IUP in cephalic presentation with an average ultrasound age 38 weeks 3 days and an estimated weight of 3517 g which is 93 percentile and large for gestational age. The FABIAN is normal at 13 cm and biophysical profile is 8 of 8 Dictated by: Gorge Clarke MD 06/26/2020 08:29 Gorge Clarke MD in [facility] 06/26/2020 08:29
== END ==
PROVIDERS: PCP Family Medicine; Visit Provider Nurse Practitioner Obstetrics & Gynecology
DX: O36.60X0 Maternal care for excessive fetal growth, unspecified trimester, not applicable or unspecified (principal); Z34.90 Encounter for supervision of normal pregnancy, unspecified, unspecified trimester
CPT/HCPCS: 76816; 76819

== ENCOUNTER 2020-07-04 23:27 | Inpatient (IN) | payer OTHER, SELFPAY ==
[2020-07-04 23:18] VITALS: BMI 45.2
[2020-07-04 23:34] LABS: Microscopic, Urine URINE MICROSCOPIC (MICROSCOPIC)
--- NOTE | 2020-07-04 23:45 | HMH.HP ---
*Admission Date: 07/04/20 *Chief complaint: Active labor *History of present illness: This 35-year-old 3, para 2, Ab0 white female is admitted at 38 weeks of gestation in active labor at 8 to 9 cm of dilatation with an intact bag of water. Contractions are every 2 minutes and strong. [facility] History Medical History: Denies:: Cancer, Diabetes Mellitus Type 1, Diabetes Mellitus Type 2, Hypertension, MRSA *Have you ever received a pneumonia vaccine?: No *Have you received a flu vaccine this season?: No Other Surgeries: Yes: No Previous Surgery, Appendectomy, Other. No: Amputation: No Fractures: No - *Social History Smoking Status: Current every day smoker Tobacco Type: cigarettes # Packs/Day (cigarettes): 1 Alcohol Intake: current Alcohol Intake Frequency:: holidays/special occasions only Substance Use Type: denies use *Occupational Status:: employed Housing: house Household Members: significant other, children *Travel in the last 8 weeks: None Family Hx:: Anemia, Cancer, Coronary Artery Disease, Heart Attack, Hyperlipidemia, Hypertension, Stroke : 3 Para: 2 A: 0 LMP comments: (Active labor) Review of Systems - Review of Systems Review of systems:: unable to obtain, other, pertinent systems reviewed and negative unless documented below Meds Home Medications Medication Instructions Recorded Confirmed Type prenat.vits,sidney,cfy-wpsc-atscd 1 tab PO DAILY 11/27/19 07/02/20 History famotidine 20 mg tablet 20 mg PO DAILY #30 tab 03/19/20 07/02/20 Rx ondansetron 4 mg disintegrating 4 mg PO Q6H PRN #30 tab 05/20/20 07/02/20 Rx tablet ferrous sulfate 325 mg (65 mg 325 mg PO tab 06/24/20 07/02/20 History iron) tablet aspirin 81 mg tablet,delayed 81 mg PO DAILY 07/02/20 07/02/20 History release Allergies Allergy/AdvReac Type Severity Reaction Status Date / Time No Known Allergies Allergy Verified 07/02/20 09:01 Exam I & O for Last 24 hours: Intake & Output 07/02/20 07/03/20 07/04/20 07/05/20 11:59 11:59 11:59 11:59 Weight 272 lb - Constitutional no acute distress - *Routine HEENT Exam Head: Present: normocephalic Eye: Present: EOMI, PERRL ENT: Present: mucous membranes moist - *Routine Neck Exam Present: supple. Absent: lymphadenopathy - *Routine Respiratory Exam Present: CTA bilaterally - *Routine Cardiovascular Exam Present: RRR - *Routine Abdominal Exam Present: soft, normoactive bowel sounds. Absent: tenderness Comments: - *Routine Rectal Exam Rectal:: deferred - *Routine Genitalia Exam Genitalia:: normal female (Cervix completely effaced, 8 to 9 cm, intact bag of water.), deferred - *Routine Extremities Exam Absent: cyanosis, clubbing, edema - *Routine Skin Exam Present: warm. Absent: rash - *Routine Neurological Exam Present: alert, oriented X3 Assessment and Plan - Assessment and plan all Dx Assessment and Plan for all problems:: Plan is for vaginal delivery.
[2020-07-04 23:54] LABS: Basophils % 0.2 % (0.1-2.0); Eosinophils # 0.1 K/mm3 (0.0-0.4); Eosinophils % 0.9 % (0.1-12.0); Hematocrit 35.9 % (37.0-47.0); Hemoglobin 12.3 g/dL (12.2-16.2); Lymphocytes % 16.5 % (10-50); Mean Corpuscular HGB Conc 34.2 g/dL (31.8-35.4); Mean Corpuscular Hemoglobin 31.2 pg (27.0-31.2); Mean Corpuscular Volume 91.4 fl (81-99); Mean Platelet Volume 7.7 fl (7.4-10.4); Monocytes # 0.5 K/mm3 (0.1-1.0); Monocytes % 4.2 % (1.7-9.3); Neutrophils # 9.4 K/mm3 (1.8-7.8); Neutrophils % 78.3 % (37.0-80.0); Platelet Count 184 K/mm3 (142-424); Red Blood Count 3.92 M/mm3 (4.20-5.40); Red Cell Distribution Width 14.2 % (11.5-17.5)
--- NOTE | 2020-07-04 23:58 | HMH.DN ---
- Delivery Note Delivery Date:: 07/04/20 Delivery Time:: 23:47 Anesthesia Type: None Was labor medically induced?: No Induction method: none Gestational age (weeks): 38 delivered prior to 39 weeks?: Yes Justification for early elective delivery:: Active Labor Infant Gender: Female at 1 minute: 9 at 5 minutes: 9 Suction Catheter Type: Dianne AF:: Blood-tinged Delivery Procedure:: This 35-year-old 3, now para 3, Ab0 white female was admitted at 38 weeks of gestation in active labor at 8 to 9 cm of dilatation. Amniotomy revealed a tinged fluid, and an internal monitor was placed. Within 5 minutes, the patient was and delivered spontaneously, in bed, at 2347. The baby's nasal and oropharynx were bulb suctioned, and the baby cried spontaneously as was delivered. The cord was clamped and cut, 3 vessels were noted to be within the cord, and cord blood was obtained. The cord pH is pending. The baby was handed into the arms of the attending RN, who assigned Apgars of 9 at 1 minute and 9 at 5 minutes to this female infant (weight in length pending). The placenta delivered spontaneously, intact, at 2350. The uterus was inspected and was felt to be clean, and was involuting well, with IV Pitocin running. The perineum was intact. There were no lacerations. The rectovaginal septum was intact at the close of the procedure. The patient tolerated the procedure well, and was recovered in excellent condition. Her blood type is O+. Her rubella titer is immune. Her group B strep culture was negative. She plans to breast-feed. Placental Delivery Description: Spontaneous (Intact)
[2020-07-05 00:08] LABS: Cord Blood PH 7.52 (7.35-7.45)
[2020-07-05 00:14] LABS: Appearance,Urine SL CLOUDY (Clear); Bilirubin,Urine Negative (Negative); Blood, Urine 3+ (Negative); Color,Urine YELLOW (Yellow); Glucose,Urine (UA) Negative (Negative); Ketones,Urine Negative (Negative); Leukocyte Esterase,Urine TRACE (Negative); Nitrate,Urine Negative (Negative); Protein,Urine Negative (Negative); Specific Gravity, Urine 1.015 (1.005-1.030); Urobilinogen,Urine 0.2 EU/dl (0.2)
[2020-07-05 00:23] LABS: Amphetamine/Metha Screen,Urine Negative ng/ml (<1000)
[2020-07-05 00:24] LABS: Bacteria,Urine Trace /lpf; Barbiturates Screen,Urine Negative ng/ml (<200); Benzodiazepines Screen,Urine Negative ng/ml (<200); Mucus,Urine 1+ /lpf; RBC,Urine 20-50 #/hpf (0-3)
[2020-07-05 00:25] LABS: Cannabinoid Screen,Urine Negative ng/ml (<50)
[2020-07-05 00:26] LABS: Cocaine Screen,Urine Negative ng/ml (<300); Methadone Screen,Urine Negative ng/ml (<300)
[2020-07-05 00:27] LABS: Opiate Screen,Urine Negative ng/ml (<300); Phencyclidine Screen,Urine Negative ng/ml (<25)
[2020-07-05 02:11] LABS: POC Glucose,Bedside 91 (70-110)
[2020-07-05 03:09] VITALS: BP 129/78; PULSE 84; RESP 20; TEMP 36.7; O2SAT 98; BMI 45.2
[2020-07-05 06:37] LABS: Hematocrit 34.1 % (37.0-47.0); Hemoglobin 11.5 g/dL (12.2-16.2)
--- NOTE | 2020-07-05 09:28 | P.PN_ITS ---
Internal Medicine - PN: Subj *Date: 07/05/20 *Time: 09:28 (This is day #1. The patient is afebrile. Vital signs stable. Abdomen soft. Lochia normal. Uterine fundus involuting well. Nursing well. Hemoglobin 11.5 g (12.3 g on admission). Impression: Stable.) Exam Vital signs and Labs for Last 24 Hours: Temp Pulse Resp BP Pulse Ox 98.1 F 84 20 129/78 98 07/05/20 03:09 07/05/20 03:09 07/05/20 03:09 07/05/20 03:09 07/05/20 03:09 Laboratory Results - last 24 hr 07/04/20 22:56: Urine Color Yellow, Urine Appearance Sl cloudy, Urine pH 7.0, Ur Specific [place] 1.015, Urine Protein Negative, Urine Glucose (UA) Negative, Urine Ketones Negative, Urine Blood 3+, Urine Nitrate Negative, Urine Bilirubin Negative, Urine Urobilinogen 0.2, Ur Leukocyte Esterase Trace, Urine RBC 20-50, Urine WBC 10-20, Ur Squamous Epith Cells 10-20, Urine Bacteria Trace, Urine Mucus 1+ 07/04/20 22:56: Urine Opiates Screen Negative, Urine Methadone Screen Negative, Ur Barbituates Screen Negative, Ur Phencyclidine Scrn Negative, Ur Amphetamines Screen Negative, U Benzodiazepines Scrn Negative, Urine Cocaine Screen Negative, U Marijuana (THC) Screen Negative 07/04/20 23:40: WBC 12.0 H, RBC 3.92 L, Hgb 12.3, Hct 35.9 L, MCV 91.4, MCH 31.2, MCHC 34.2, RDW 14.2, Plt Count 184, MPV 7.7, Neut % (Auto) 78.3, Lymph % (Auto) 16.5, [place] % (Auto) 4.2, Eos % (Auto) 0.9, Baso % (Auto) 0.2, Neut # (Auto) 9.4 H, Lymph # (Auto) 2.0, [place] # (Auto) 0.5, Eos # (Auto) 0.1, Baso # (Auto) 0.0 07/04/20 23:40: Blood Type O Positive, Antibody Screen Negative 07/05/20 00:04: Cord ABG pH 7.52 H 07/05/20 01:59: POC Glucose 91 07/05/20 06:10: Hgb 11.5 L, Hct 34.1 L I & O for Last 24 hours: Intake & Output 07/02/20 07/03/20 07/04/20 07/05/20 11:59 11:59 11:59 11:59 Weight 272 lb Microbiology Reports for the Last 24 Hours: Microbiology 07/04/20 23:40 Nasopharyngeal Coronavirus COVID-19 PCR - Final
--- NOTE | 2020-07-05 19:13 | PC.NURSE ---
Report given to BENIGNO Yun.
--- NOTE | 2020-07-06 08:47 | HMH.ACPN2 ---
Internal Medicine - PN: Subj *Date: 07/06/20 *Time: 08:47 (This is day #1-/2. The patient is afebrile. Vital signs stable. Abdomen soft. Lochia normal. Uterine fundus involuting well. Nursing well. Impression: Stable. Plan: Discharge tomorrow.) Exam Vital signs and Labs for Last 24 Hours: Temp Pulse Resp BP Pulse Ox 98.1 F 84 20 129/78 98 07/05/20 03:09 07/05/20 03:09 07/05/20 03:09 07/05/20 03:09 07/05/20 03:09 I & O for Last 24 hours: Intake & Output 07/03/20 07/04/20 07/05/20 07/06/20 11:59 11:59 11:59 11:59 Weight 272 lb Microbiology Reports for the Last 24 Hours: Microbiology 07/04/20 22:56 Urine,Clean Catch Urine Culture - Preliminary
[2020-07-07 04:07] VITALS: BP 111/64; PULSE 68; RESP 17; TEMP 36.5; O2SAT 99
--- NOTE | 2020-07-07 10:27 | HMH.DCSUM ---
General - General Admission date:: 07/04/20 Discharge date: 07/07/20 HPI HPI: This 35-year-old 3, para 2, Ab0 white female admitted at 38 weeks of gestation in active labor at 8 to 9 cm of dilatation with an intact bag of water. Hospital Course Hospital Course: Uncomplicated spontaneous vaginal delivery course uneventful Tolerating regular diet, ambulating and voiding without difficulty Discharged home in stable condition on PPD #2 Rhogam Administration: Not Indicated Objective Vital signs: Temp Pulse Resp BP Pulse Ox 97.7 F 68 17 111/64 99 07/07/20 04:07 07/07/20 04:07 07/07/20 04:07 07/07/20 04:07 07/07/20 04:07 Narrative: CONSTITUTIONAL: no acute distress HEENT: mucous membranes moist PULMONARY: breathing unlabored without audible wheezes CV: no tachycardia or visible JVD; normal LE peripheral pulses ABD: soft, NT/ND, no guarding : fundus firm at umbilicus SKIN: no visible rash or lesions EXT: 1+ edema LEs NEURO: alert/oriented, no altered mental status PSYCH: appropriate mood and demeanor Results Labs on day of discharge: Preliminary micro results at discharge 07/04/20 22:56 Urine Culture - Preliminary Urine,Clean Catch DS: Diagnosis - Discharge Diagnosis (1) 38 weeks gestation of Status: Acute (2) Active labor at term Status: Acute (3) Vaginal delivery Status: Acute Discharge Plan - Patient Discharge Instructions ACTIVITY: Continue current activity DIET: regular diet Additional Instructions: Nothing in the vagina for 6 weeks Drink plenty of fluids Patient Instructions: Depression, Hemorrhage, DI for Labor and Delivery, Vaginal , DI for Pre-eclampsia, [facility] Post Discharge Instructions, Preventing the Spread of Coronavirus Discharge Instructions - Follow up Plan Disposition: Home, Self-Care Condition at discharge:: Stable Home Medications: Home Medications Medication Instructions Recorded Confirmed Type prenat.vits,sidney,nep-kacs-nhbsx 1 tab PO DAILY 11/27/19 07/05/20 History ferrous sulfate 325 mg (65 mg 325 mg PO DAILY tab 06/24/20 07/05/20 History iron) tablet aspirin 81 mg tablet,delayed 81 mg PO DAILY 07/02/20 07/05/20 History release Famotidine [Acid Flatwork Supervisor] 20 mg PO DAILY 07/05/20 07/05/20 History Prescriptions/Medication Reconciliation: New Acetaminophen [Acetaminophen 325mg tab] 650 mg PO Q4HP PRN tablet PRN Reason: Mild Pain Ibuprofen [Motrin 400mg tablet] 800 mg PO Q6HP PRN tablet PRN Reason: Mild To Moderate Pain Continued prenat.vits,sidney,rad-jgzx-fvydu 1 tab PO DAILY ferrous sulfate 325 mg (65 mg iron) tablet 325 mg PO DAILY tab aspirin 81 mg tablet,delayed release 81 mg PO DAILY Famotidine [Acid Flatwork Supervisor] 20 mg PO DAILY - Problem Reconciliation Problems Reviewed?: Yes
== END 2020-07-07 11:20 | disposition home or self-care (01) | DRG 807 ==
LOC: OBOUT 23:29 → OB 23:29
PROVIDERS: Admitting Provider Obstetrics & Gynecology; PCP Nurse Practitioner Obstetrics & Gynecology; Visit Provider Obstetrics & Gynecology
DX: O80 Encounter for full-term uncomplicated delivery (principal); Z37.0 Single live birth; Z3A.38 38 weeks gestation of pregnancy
CPT/HCPCS: 59409; 59025; 80305; 81001; 82800; 82962; 85014; 85018; 85025; 86850; 87086; 94761; C1758; G0283; U0003

== ENCOUNTER → 2021-05-05 11:24 | Outpatient (CLI) | payer OTHER, SELFPAY ==
[2021-05-05 12:07] LABS: Basophils % 0.5 % (0.1-2.0); Eosinophils # 0.1 K/mm3 (0.0-0.4); Eosinophils % 1.6 % (0.1-12.0); Hematocrit 38.7 % (37.0-47.0); Hemoglobin 13.2 g/dL (12.2-16.2); Lymphocytes # 1.6 K/mm3 (0.7-4.5); Lymphocytes % 23.4 % (10-50); Mean Corpuscular HGB Conc 34.1 g/dL (31.8-35.4); Mean Corpuscular Hemoglobin 31.5 pg (27.0-31.2); Mean Corpuscular Volume 92.4 fl (81-99); Mean Platelet Volume 7.8 fl (7.4-10.4); Monocytes # 0.3 K/mm3 (0.1-1.0); Monocytes % 4.4 % (1.7-9.3); Neutrophils # 4.9 K/mm3 (1.8-7.8); Platelet Count 292 K/mm3 (142-424); Red Blood Count 4.19 M/mm3 (4.20-5.40); Red Cell Distribution Width 13.3 % (11.5-17.5)
[2021-05-06 08:23] LABS: HIV Screen 4th Generation wRfx Non Reactive (Non Reactive)
[2021-05-06 09:14] LABS: HSV 2 IgG, Type Spec <0.91 index (0.00-0.90); Rubella Antibodies, IgG 6.49 index (Immune >0.99)
[2021-05-06 10:13] LABS: Hepatitis B Surface Antigen Negative (Negative); Hepatitis C Antibody 0.1 s/co ratio (0.0-0.9)
[2021-05-06 13:49] LABS: Rapid Plasma Reagin Ab Titer Non Reactive (NonRea<1:1)
== END ==
PROVIDERS: Visit Provider Nurse Practitioner Obstetrics & Gynecology
DX: Z34.90 Encounter for supervision of normal pregnancy, unspecified, unspecified trimester (principal)
CPT/HCPCS: 36415; 85025; 86592; 86695; 86703; 86762; 86790; 86850; 87340; 87380; G0432

== ENCOUNTER → 2021-05-06 09:44 | Outpatient (CLI) | payer OTHER, SELFPAY ==
--- NOTE | 2021-05-06 09:45 | US_ITS ---
FINAL REPORT CLINICAL HISTORY: for dates FINDINGS: Sonographic images of the pelvis were obtained. A single, living intrauterine is noted. A yolk sac is present and measures 0.64 cm. [place] to rump length measures 2.25 cm which corresponds to 9 weeks 0 days gestation. Heartbeat is identified and measures 182 beats per minute. The right ovary is within normal limits. There is a 2.1 cm left ovarian cyst. IMPRESSION: Single, living, intrauterine gestation with 8 weeks 1 days gestational age. Reviewed, Interpreted and Dictated by Herminio Orozco III, MD Transcribed by Elvie Izquierdo Authenticated by Herminio Orozco III, MD on 05/06/2021 11:37:41 AM [facility]
== END ==
PROVIDERS: PCP Family Medicine; Visit Provider Nurse Practitioner Obstetrics & Gynecology
DX: Z34.90 Encounter for supervision of normal pregnancy, unspecified, unspecified trimester (principal)
CPT/HCPCS: 76801

== ENCOUNTER → 2021-05-29 12:40 | Outpatient (CLI) | payer OTHER, SELFPAY | PROVIDERS: Visit Provider Nurse Practitioner Obstetrics & Gynecology | DX: Z31.430 Encounter of female for testing for genetic disease carrier status for procreative management (principal); Z36.0 Encounter for antenatal screening for chromosomal anomalies; O28.3 Abnormal ultrasonic finding on antenatal screening of mother | CPT/HCPCS: 36415 ==

== ENCOUNTER 2021-06-11 03:50 | Emergency (ER) | payer OTHER, SELFPAY ==
[2021-06-11 03:51] VITALS: BP 135/79; PULSE 99; RESP 16; TEMP 37.1; O2SAT 100; BMI 41.9
[2021-06-11 04:43] LABS: Microscopic, Urine URINE MICROSCOPIC (MICROSCOPIC)
[2021-06-11 04:48] LABS: Chloride 107 mmol/L (98-107); Potassium 3.6 mmoL/L (3.5-5.1); Sodium 134 mmol/L (136-145)
[2021-06-11 04:49] LABS: Basophils # 0.1 K/mm3 (0-0.2); Basophils % 0.7 % (0.1-2.0); Eosinophils # 0.2 K/mm3 (0.0-0.4); Hematocrit 38.4 % (37.0-47.0); Hemoglobin 12.8 g/dL (12.2-16.2); Lymphocytes # 1.5 K/mm3 (0.7-4.5); Lymphocytes % 19.2 % (10-50); Mean Corpuscular HGB Conc 33.3 g/dL (31.8-35.4); Mean Corpuscular Hemoglobin 31.2 pg (27.0-31.2); Mean Corpuscular Volume 93.8 fl (81-99); Mean Platelet Volume 7.1 fl (7.4-10.4); Monocytes # 0.4 K/mm3 (0.1-1.0); Monocytes % 5.2 % (1.7-9.3); Neutrophils # 5.6 K/mm3 (1.8-7.8); Neutrophils % 72.8 % (37.0-80.0); Platelet Count 253 K/mm3 (142-424); Red Blood Count 4.09 M/mm3 (4.20-5.40); Red Cell Distribution Width 13.8 % (11.5-17.5); White Blood Count 7.8 K/mm3 (4.8-10.8)
[2021-06-11 04:50] LABS: Blood Urea Nitrogen 11 mg/dl (7-17); Creatinine Clearance Estimated 114 mL/min (50-200); Estimated Glomerular Filt Rate 112 ml/min (>60); GFR (African American) 135 ML/MIN (>60)
[2021-06-11 04:51] LABS: Alanine Aminotransferase 13 U/L (12-78); Albumin Level 3.4 g/dl (3.5-5.0); Albumin/Globulin Ratio 1.4 (1.1-1.8); Alkaline Phosphatase 46 U/L (38-126); Anion Gap 7.6 mEq/L (5-15); Aspartate Amino Transferase 21 U/L (14-36); Bilirubin,Total 0.4 mg/dl (0.2-1.3); Calcium 8.6 mg/dl (8.4-10.2); Carbon Dioxide 23 mmol/L (22.0-30.0); Globulin 2.5 g/dL (1.3-3.2); Glucose 117 mg/dl (74-100); Total Protein,Serum 5.9 g/dl (6.3-8.2)
[2021-06-11 05:00] LABS: Appearance,Urine TURBID (Clear); Bilirubin,Urine Negative (Negative); Blood, Urine 3+ (Negative); Color,Urine RED (Yellow); Glucose,Urine (UA) TRACE (Negative); Ketones,Urine Negative (Negative); Leukocyte Esterase,Urine Negative (Negative); Nitrate,Urine Negative (Negative); PH,Urine 6.5 (5.0-8.5); Protein,Urine 3+ (Negative); Specific Gravity, Urine 1.025 (1.005-1.030); Urobilinogen,Urine 0.2 EU/dl (0.2)
[2021-06-11 05:01] LABS: HCG Qualitative, Serum Positive (Negative); RBC,Urine TNTC #/hpf (0-3); Urine Pregnancy, HCG Qual. Positive (Negative)
[2021-06-11 05:02] LABS: Bacteria,Urine 2+ /lpf; Mucus,Urine 1+ /lpf
--- NOTE | 2021-06-11 05:19 | US_ITS ---
PROCEDURE INFORMATION: Exam: US , Transvaginal Exam date and time: 06/11/2021 5:58 AM Age: 36 years old Clinical indication: Lmp or gestational age (in weeks): 14 weeks; Other: Early preg with vag bleeding; ; Additional info: 14 weeks and bleeding TECHNIQUE: Imaging protocol: Real-time transvaginal obstetrical ultrasound of the maternal pelvis with image documentation. Transvaginal imaging was used for better evaluation of the fetus, adnexa, and/or cervix. COMPARISON: US OB <= 14 WEEKS FETUS 05/06/2021 10:01 AM FINDINGS: Gestation: Intrauterine gestation. heart rate: The heart rate is 147 beats per minute. presentation: Breech positioning. Placenta: The placenta is located along the fundus. BIOMETRY: Estimated due date (AUA): The estimated due date is 12/05/2021. Gestational age (AUA): The estimated gestational age is 14 weeks 5 days. Biparietal diameter (BPD): Biparietal diameter measures 2.74 cm, corresponding to a gestational age of 15 weeks 0 days. Abdominal circumference (AC): Abdominal circumference measures 8.16 cm, corresponding to a gestational age of 14 weeks 4 days. Femur length (FL): Femur length measures 1.5 cm, corresponding to a gestational age of 14 weeks 3 days. IMPRESSION: Single viable intrauterine gestation with estimated gestational age of 14 weeks 5 days.
--- NOTE | 2021-06-11 05:20 | PC.NURSE ---
Notified rad order for transvaginal US entered
--- NOTE | 2021-06-11 05:24 | HMH.EDPREG ---
ED Disposition Clinical Impression: Vaginal bleeding before 22 weeks gestation Qualifiers: Weeks of gestation: 14 weeks Qualified Code(s): Z3A.14 - 14 weeks gestation of Disposition: Home, Self-Care Condition on Discharge: Good Instructions: DI for Vaginal Bleeding During Additional Instructions: call ob this am Referrals: Bill Valencia MD [Primary Care Provider] - Jim Vilchis MD [Staff Physician] - - Critical Care Critical Care Time: No Attestation: On 06/11/21, the high probability of a clinically significant, sudden or life threatening deterioration of the following system(s) required my full and direct attention, intervention and personal management. The time I documented below is in addition to time spent performing reported procedures but includes the following listed in this critical care notation. Medical Decision Making - Medical Records Medical records reviewed: Yes: I reviewed the patient's medical records. - Curly Inquiry Pt receiving controlled substance: No Vital Signs: 06/11/21 03:51 Temperature 98.7 F Temperature Source Oral Pulse Rate [Left] 99 H Respiratory Rate 16 Blood Pressure [Right Arm] 135/79 Blood Pressure Mean [Right Arm] 97 02 Sat by Pulse Oximetry 100 Oxygen Delivery Method Room Air - Lab Data Lab results reviewed: Yes: I reviewed the patient's lab results. Lab Results 06/11/21 04:12: Urine Color Red, Urine Appearance Turbid, Urine pH 6.5, Ur Specific Point Clear 1.025, Urine Protein 3+, Urine Glucose (UA) Trace, Urine Ketones Negative, Urine Blood 3+, Urine Nitrate Negative, Urine Bilirubin Negative, Urine Urobilinogen 0.2, Ur Leukocyte Esterase Negative, Urine RBC Tntc, Urine WBC 3-5, Ur Squamous Epith Cells 3-5, Urine Bacteria 2+, Urine Mucus 1+ 06/11/21 04:12: WBC 7.8, RBC 4.09 L, Hgb 12.8, Hct 38.4, MCV 93.8, MCH 31.2, MCHC 33.3, RDW 13.8, Plt Count 253, MPV 7.1 L, Neut % (Auto) 72.8, Lymph % (Auto) 19.2, [place] % (Auto) 5.2, Eos % (Auto) 2.0, Baso % (Auto) 0.7, Neut # (Auto) 5.6, Lymph # (Auto) 1.5, [place] # (Auto) 0.4, Eos # (Auto) 0.2, Baso # (Auto) 0.1 06/11/21 04:12: Urine HCG, Qual Positive 06/11/21 04:12: Sodium 134 L, Potassium 3.6, Chloride 107, Carbon Dioxide 23, Anion Gap 7.6, BUN 11, Creatinine 0.60, Estimated Creat Clear 114, Estimated GFR 112, Est GFR ( Amer) 135, Glucose 117 H, Calcium 8.6, Total Bilirubin 0.4, AST 21, ALT 13, Alkaline Phosphatase 46, Total Protein 5.9 L, Albumin 3.4 L, Globulin 2.5, Albumin/Globulin Ratio 1.4 06/11/21 04:12: Serum HCG, Qual Positive 06/11/21 04:12: HCG, Quant [id number] H Result diagrams: 06/11/21 04:12 06/11/21 04:12 Orders (Tests/Meds): ORDERS Category Date Time Status Urine Culture Stat Micro 06/11/21 04:12 Received US OB transvaginal Stat Ultrasound 06/11/21 05:19 Ordered - US Data US Images: Pelvis ED US Reviewed: Yes: I discussed the US results w/the radiologist Findings Narrative: stable Medical Decision Narrative: stable exam and will have pt call ob this am HPI - General Chief complaint: Vaginal Bleeding Stated complaint: 14 weeks and bleeding Time Seen by Provider: 06/11/21 05:24 Mode of Arrival: Ambulatory Source of Information: Patient, Medical Record Limitations: No Limitations Description of Symptoms (Recalled from ER Triage Doc. by RN): 14w 1 day states to have woke up in a pool of her own pt has no complaints of pain or cramping. FHTs were detected via hand held doppler at 152 hr - History of Present Illness HPI Narrative: bleeding noted this am in this preg pt w/o pain - MD Complaint: vaginal bleeding Onset (ago): hour(s) Severity: moderate Associated symptoms: denies other symptoms : Yes Date of Last Menstrual Period: 14wk 1 day - Related Data Blood Type: O (+) positive Home Medications Medication Instructions Recorded Confirmed prenat.vits,sidney,lpt-[id number] 1 tab PO DAILY 04/29/2105/27/
--- NOTE | 2021-06-11 05:24 | PC.NURSE ---
pt up to bathroom to assess bleeding
--- NOTE | 2021-06-11 05:26 | PC.NURSE ---
pt no longer bleeding.
--- NOTE | 2021-06-11 06:06 | PC.NURSE ---
PT up to US
[2021-06-11 06:44] VITALS: BP 135/79; PULSE 80; RESP 14; TEMP 37.1; O2SAT 100
== END 2021-06-11 06:49 | disposition home or self-care (01) ==
PROVIDERS: Emergency Provider Emergency Medicine; PCP Family Medicine
DX: O20.9 Hemorrhage in early pregnancy, unspecified (principal); Z3A.14 14 weeks gestation of pregnancy; Z87.891 Personal history of nicotine dependence
CPT/HCPCS: 76817; 80053; 81001; 81025; 84702; 84703; 85025; 87086; 87088; 87186; 99284

== ENCOUNTER → 2021-06-24 12:01 | Outpatient (CLI) | payer OTHER, SELFPAY | PROVIDERS: Visit Provider Nurse Practitioner Obstetrics & Gynecology | DX: O23.40 Unspecified infection of urinary tract in pregnancy, unspecified trimester (principal); B96.20 Unspecified Escherichia coli [E. coli] as the cause of diseases classified elsewhere | CPT/HCPCS: 87086; 87088; 87186 ==

== ENCOUNTER 2021-07-12 04:11 | Emergency (ER) | payer OTHER, SELFPAY ==
[2021-07-12] VITALS (17 sets, daily range): BP systolic 72–146; BP diastolic 39–98; PULSE 84–103; RESP 16–20; TEMP 36.6–36.9; O2SAT 96–99; BMI 41.9
[2021-07-12 04:35] LABS: Basophils # 0.1 K/mm3 (0-0.2); Basophils % 0.6 % (0.1-2.0); Eosinophils # 0.1 K/mm3 (0.0-0.4); Eosinophils % 0.7 % (0.1-12.0); Hematocrit 35.1 % (37.0-47.0); Hemoglobin 11.6 g/dL (12.2-16.2); Lymphocytes # 1.7 K/mm3 (0.7-4.5); Lymphocytes % 12.1 % (10-50); Mean Corpuscular HGB Conc 33.1 g/dL (31.8-35.4); Mean Corpuscular Hemoglobin 30.5 pg (27.0-31.2); Mean Corpuscular Volume 92.2 fl (81-99); Mean Platelet Volume 7.8 fl (7.4-10.4); Monocytes # 0.5 K/mm3 (0.1-1.0); Monocytes % 3.9 % (1.7-9.3); Neutrophils # 11.4 K/mm3 (1.8-7.8); Neutrophils % 82.7 % (37.0-80.0); Platelet Count 333 K/mm3 (142-424); Red Blood Count 3.81 M/mm3 (4.20-5.40); Red Cell Distribution Width 13.7 % (11.5-17.5); White Blood Count 13.8 K/mm3 (4.8-10.8)
[2021-07-12 04:40] LABS: Alanine Aminotransferase 13 U/L (12-78); Albumin Level 3.1 g/dl (3.5-5.0); Alkaline Phosphatase 69 U/L (38-126); Anion Gap 10.8 mEq/L (5-15); Aspartate Amino Transferase 19 U/L (14-36); Blood Urea Nitrogen 11 mg/dl (7-17); Calcium 8.3 mg/dl (8.4-10.2); Carbon Dioxide 22 mmol/L (22.0-30.0); Chloride 106 mmol/L (98-107); Creatinine Clearance Estimated 114 mL/min (50-200); Estimated Glomerular Filt Rate 112 ml/min (>60); GFR (African American) 135 ML/MIN (>60); Glucose 117 mg/dl (74-100); Potassium 3.8 mmoL/L (3.5-5.1); Sodium 135 mmol/L (136-145); Total Protein,Serum 6.1 g/dl (6.3-8.2)
--- NOTE | 2021-07-12 04:42 | HMH.EDPREG ---
ED Disposition Clinical Impression: Miscarriage at 8 to 28 weeks gestation Disposition: Home, Self-Care Condition on Discharge: Good Instructions: DI for Miscarriage Additional Instructions: call dr vilchis in am Referrals: Provider,MD Anai [Referring] - Jim Vilchis MD [Staff Physician] - Susan Tran MD [Staff Physician] - - Critical Care Critical Care Time: No Attestation: On 07/12/21, the high probability of a clinically significant, sudden or life threatening deterioration of the following system(s) required my full and direct attention, intervention and personal management. The time I documented below is in addition to time spent performing reported procedures but includes the following listed in this critical care notation. Medical Decision Making - Medical Records Medical records reviewed: Yes: I reviewed the patient's medical records. - Curly Inquiry Pt receiving controlled substance: No Vital Signs: 07/12/21 03:56 07/12/21 04:19 07/12/21 04:31 Temperature 98.5 F Temperature Source Oral Pulse Rate 103 H 97 H Pulse Rate [Left Radial] 85 Respiratory Rate 16 16 Blood Pressure 122/98 H 103/56 L Blood Pressure [Right Arm] 122/98 H Blood Pressure Mean 109 71 Blood Pressure Mean [Right Arm] 106 Blood Pressure Source [Right Arm] Automatic Cuff Blood Pressure Position [Right Arm] Sitting 02 Sat by Pulse Oximetry 99 99 99 Oxygen Delivery Method Room Air 07/12/21 04:35 07/12/21 05:00 07/12/21 05:30 Temperature Temperature Source Pulse Rate 99 H 97 H 102 H Pulse Rate [Left Radial] Respiratory Rate Blood Pressure 112/59 L 118/78 118/78 Blood Pressure [Right Arm] Blood Pressure Mean 75 81 84 Blood Pressure Mean [Right Arm] Blood Pressure Source [Right Arm] Blood Pressure Position [Right Arm] 02 Sat by Pulse Oximetry 99 99 98 Oxygen Delivery Method 07/12/21 06:01 07/12/21 07:24 07/12/21 08:02 Temperature Temperature Source Pulse Rate 100 H 95 H 89 Pulse Rate [Left Radial] Respiratory Rate 20 18 Blood Pressure 122/64 131/73 146/77 H Blood Pressure [Right Arm] Blood Pressure Mean 79 88 97 Blood Pressure Mean [Right Arm] Blood Pressure Source [Right Arm] Blood Pressure Position [Right Arm] 02 Sat by Pulse Oximetry 99 98 98 Oxygen Delivery Method 07/12/21 08:33 07/12/21 08:36 07/12/21 08:39 Temperature Temperature Source Pulse Rate 84 94 H Pulse Rate [Left Radial] Respiratory Rate 18 18 18 Blood Pressure 82/45 L 97/54 L 72/39 L Blood Pressure [Right Arm] Blood Pressure Mean 57 63 50 Blood Pressure Mean [Right Arm] Blood Pressure Source [Right Arm] Blood Pressure Position [Right Arm] 02 Sat by Pulse Oximetry 98 96 97 Oxygen Delivery Method 07/12/21 08:43 07/12/21 09:02 07/12/21 09:31 Temperature Temperature Source Pulse Rate 94 H 92 H 92 H Pulse Rate [Left Radial] Respiratory Rate 18 20 18 Blood Pressure 96/61 L 137/68 129/83 Blood Pressure [Right Arm] Blood Pressure Mean 72 92 93 Blood Pressure Mean [Right Arm] Blood Pressure Source [Right Arm] Blood Pressure Position [Right Arm] 02 Sat by Pulse Oximetry 97 97 98 Oxygen Delivery Method 07/12/21 10:32 Temperature Temperature Source Pulse Rate 85 Pulse Rate [Left Radial] Respiratory Rate 16 Blood Pressure 103/56 L Blood Pressure [Right Arm] Blood Pressure Mean 74 Blood Pressure Mean [Right Arm] Blood Pressure Source [Right Arm] Blood Pressure Position [Right Arm] 02 Sat by Pulse Oximetry 99 Oxygen Delivery Method - Lab Data Lab results reviewed: Yes: I reviewed the patient's lab results. Lab Results 07/12/21 04:23: WBC 13.8 H, RBC 3.81 L, Hgb 11.6 L, Hct 35.1 L, MCV 92.2, MCH 30.5, MCHC 33.1, RDW 13.7, Plt Count 333, MPV 7.8, Neut % (Auto) 82.7 H, Lymph % (Auto) 12.1, [place] % (Auto) 3.9, Eos % (Auto) 0.7, Baso % (Auto) 0.6, Neut # (Auto) 11.4 H, Lymph # (Auto) 1.7, [place] #
[2021-07-12 04:51] LABS: Bilirubin,Total < 0.1 mg/dl (0.2-1.3)
--- NOTE | 2021-07-12 05:00 | PC.NURSE ---
CYTOTEC 400MCG GIVEN PO PER MD - COMPUTER WILL NOT ALLOW DOCUMENTATION ON APR.
--- NOTE | 2021-07-12 05:32 | PC.NURSE ---
spoke with Bishop from the home he is in route
--- NOTE | 2021-07-12 06:06 | PC.NURSE ---
PT DENIES PAIN. FETUS DELIVERED AT HOME PRIOR TO ARRIVAL. WITH NO RESPIRATIONS UPON ARRIVAL. MEASUREMENTS 8.[address] LOUISE ATTEMPT TO EXPRESS PLACENTA WITH MINIMAL RESULTS. PARENT REQUEST FOOTPRINTS - OBTAINED PER DEEJAY MORENO RN.
--- NOTE | 2021-07-12 06:45 | PC.NURSE ---
expressed large clots with fundal massage,pt report some cramping ,assisted pt up to bathroom
[2021-07-12 06:59] LABS: Basophils # 0.1 K/mm3 (0-0.2); Basophils % 0.7 % (0.1-2.0); Eosinophils # 0.1 K/mm3 (0.0-0.4); Eosinophils % 0.5 % (0.1-12.0); Hemoglobin 11.4 g/dL (12.2-16.2); Lymphocytes # 1.2 K/mm3 (0.7-4.5); Lymphocytes % 8.6 % (10-50); Mean Corpuscular HGB Conc 33.4 g/dL (31.8-35.4); Mean Corpuscular Hemoglobin 30.6 pg (27.0-31.2); Mean Corpuscular Volume 91.6 fl (81-99); Mean Platelet Volume 7.5 fl (7.4-10.4); Monocytes # 0.5 K/mm3 (0.1-1.0); Monocytes % 3.4 % (1.7-9.3); Neutrophils # 12.4 K/mm3 (1.8-7.8); Neutrophils % 86.9 % (37.0-80.0); Platelet Count 340 K/mm3 (142-424); Red Blood Count 3.72 M/mm3 (4.20-5.40); Red Cell Distribution Width 13.6 % (11.5-17.5); White Blood Count 14.3 K/mm3 (4.8-10.8)
[2021-07-12 07:01] LABS: MANUAL DIFFERENTIAL MANUAL DIFFERENTIAL (MANUAL DIFF)
[2021-07-12 07:06] LABS: Lymphocytes % 7 % (10-50); Monocytes % 1 % (2-9); Neutrophils % 81 % (42-76); Platelet Estimate Normal; RBC Morphology Normal; Total Cells Counted 100
--- NOTE | 2021-07-12 07:10 | PC.NURSE ---
[facility] left with remains
--- NOTE | 2021-07-12 07:40 | PC.NURSE ---
speaking with Dr Tran.
--- NOTE | 2021-07-12 07:45 | PC.NURSE ---
ob nurse at bedside pt passing large amounts of blood clots.
--- NOTE | 2021-07-12 08:08 | PC.NURSE ---
large amt blood clots vag. noted new pads applied
--- NOTE | 2021-07-12 08:30 | PC.NURSE ---
PT UP TO BEDSIDE COMMODE. PT STATES SHE THOUGHT SHE PASSED A LARGE CLOT. PT THEM BECAME PALE, NOT RESPONDING TO VERBAL STIMULI. EPISODE LASTED FOR APPROX 45 SEC, PLACED PT BACK TO BED WITH ASSIST OF TWO.
--- NOTE | 2021-07-12 08:54 | US_ITS ---
PROCEDURE INFORMATION: Exam: US Nonobstetric Pelvis; Complete Exam date and time: 07/12/2021 9:28 AM Age: 36 years old Clinical indication: Other: Spontaenous ab 19 w 4 d fetus in er; Patient HX: PT presented in er with spontaneous ab-- delivered placenta in er-- evaluating for retained products of conception-- fetus was 19w 4 d; Additional info: Poc TECHNIQUE: Imaging protocol: Transabdominal pelvic nonobstetric ultrasound. Complete exam. Real time ultrasound with image documentation. COMPARISON: CT ABDOMEN PELVIS W CON 07/20/2019 11:37 AM FINDINGS: Uterus: The uterus measures 12 x 5.8 x 9.1 cm. The endometrial stripe measures 3.2 cm. Right ovary/adnexa: The right ovary measures 2 x 2.8 x 1.6 cm. Normal flow demonstrated. Left ovary/adnexa: The left ovary measures 3.1 x 2 x 2.1 cm. Normal flow demonstrated. Intraperitoneal space: No intraperitoneal fluid. Urinary bladder: Normal. IMPRESSION: The endometrial stripe measures 3.2 cm. No flow is present and likely represent blood products with no definite evidence of retained products of conception.
--- NOTE | 2021-07-12 09:10 | PC.NURSE ---
POC SENT TO LAB
--- NOTE | 2021-07-12 09:25 | PC.NURSE ---
ultrasound technician at bedside for pelvic us
--- NOTE | 2021-07-12 10:00 | PC.NURSE ---
PT RESTING FAMILY AT BEDSIDE
[2021-07-12 10:14] LABS: Basophils # 0.1 K/mm3 (0-0.2); Basophils % 0.6 % (0.1-2.0); Eosinophils % 0.2 % (0.1-12.0); Hematocrit 27.9 % (37.0-47.0); Lymphocytes # 1.2 K/mm3 (0.7-4.5); Lymphocytes % 9.4 % (10-50); Mean Corpuscular HGB Conc 33.9 g/dL (31.8-35.4); Mean Corpuscular Hemoglobin 30.8 pg (27.0-31.2); Mean Corpuscular Volume 90.9 fl (81-99); Mean Platelet Volume 7.9 fl (7.4-10.4); Monocytes # 0.4 K/mm3 (0.1-1.0); Monocytes % 3.4 % (1.7-9.3); Neutrophils # 11.1 K/mm3 (1.8-7.8); Neutrophils % 86.5 % (37.0-80.0); Platelet Count 320 K/mm3 (142-424); Red Blood Count 3.08 M/mm3 (4.20-5.40); Red Cell Distribution Width 13.5 % (11.5-17.5); White Blood Count 12.8 K/mm3 (4.8-10.8)
[2021-07-12 10:20] LABS: Hemoglobin 9.5 g/dL (12.2-16.2)
--- NOTE | 2021-07-12 10:30 | PC.NURSE ---
UPDATED ON PLAN OF CARE
--- NOTE | 2021-07-12 11:15 | PC.NURSE ---
PT STATES FEELING IMPROVED. PT UP TO BATHROOM AMBULATING WITH STEADY GAIT DENIES FEELING LIGHTHEADED. PT GIVEN WASH CLOTHS AND SANITARY PADS.
== END 2021-07-12 12:02 | disposition home or self-care (01) ==
PROVIDERS: Emergency Provider Emergency Medicine; PCP Family Medicine
DX: O03.9 Complete or unspecified spontaneous abortion without complication (principal)
CPT/HCPCS: 76856; 80053; 85007; 85025; 96365; 96375; 99284

== ENCOUNTER → 2021-07-21 14:25 | Outpatient (CLI) | payer OTHER, SELFPAY ==
[2021-07-21 15:23] LABS: Hematocrit 26.3 % (37.0-47.0); Hemoglobin 8.9 g/dL (12.2-16.2)
== END ==
PROVIDERS: PCP Family Medicine; Visit Provider Nurse Practitioner Obstetrics & Gynecology
DX: O03.9 Complete or unspecified spontaneous abortion without complication (principal); P95 Stillbirth
CPT/HCPCS: 36415; 85014; 85018

== ENCOUNTER → 2021-07-31 14:13 | Outpatient (CLI) | payer OTHER, SELFPAY ==
[2021-07-31 15:17] LABS: Hematocrit 30.4 % (37.0-47.0); Hemoglobin 9.3 g/dL (12.2-16.2)
== END ==
PROVIDERS: PCP Family Medicine; Visit Provider Obstetrics & Gynecology
DX: D64.9 Anemia, unspecified (principal)
CPT/HCPCS: 36415; 85014; 85018

== ENCOUNTER 2021-08-17 11:45 | Emergency (ER) | payer OTHER, SELFPAY ==
[2021-08-17 11:56] VITALS: BP 133/78; PULSE 71; RESP 17; TEMP 36.9; O2SAT 98; BMI 40.2
[2021-08-17 12:00] LABS: Influenza A, PCR Not Detected (NotDetected); Influenza B, PCR Not Detected (NotDetected)
--- NOTE | 2021-08-17 12:02 | HMH.EDUTC ---
[facility] [place] Disposition Clinical Impression: Exposure to COVID-19 virus Disposition: Home, Self-Care Condition on Discharge: Good Instructions: DI for COVID-19 (Suspected or Confirmed ), Preventing the Spread of Coronavirus Discharge Instructions Additional Instructions: *Monitor Temp, Over the counter Motrin or Tylenol as directed/as needed Tylenol every 4 hours and Motrin every 6 hours (as long as your family doctor has told you that you can take it) for fever or pain. and straight to ER if unable to lower temp less than 101.0 after medication given Follow up IMMEDIATELY for new or worsening symptoms or no Noticeable improvement over the next 48-72 hours. 911 for difficulty breathing or swallowing You were tested for today for COVID19 your test result should be back in the next 24-48 hours, you may check your results on the [facility] Portal for your results Make sure to take your Vitamins Vit. C Vit D and Zinc if you can take them Referrals: Bill Valencia MD [Primary Care Provider] - As needed Forms: Work/School Release Time of Disposition: 12:02 Medical Decision Making - Curly Inquiry Pt receiving controlled substance: No Curly was queried for this patient: No Vital Signs: 08/17/21 11:56 Temperature 98.4 F Temperature Source Oral Pulse Rate [Left] 71 Respiratory Rate 17 Blood Pressure [Right Arm] 133/78 Blood Pressure Mean [Right Arm] 96 02 Sat by Pulse Oximetry 98 Orders (Tests/Meds): ORDERS Category Date Time Status Rapid PCR Covid and Flu A/B Stat Lab 08/17/21 11:50 Received [facility] [place] HPI - General Stated complaint: covid exposure Time Seen by Provider: 08/17/21 11:55 Description of Symptoms (Recalled from Triage Doc. by RN): patient comes in for covid test due to exposure by coworker. patient states she has had a cough for a few weeks and no other symptoms HEENT Symptoms (Recalled from RN notes): No Resp Symptoms (Recalled from RN notes): Yes Skin Symptoms (Recalled from RN notes): No MS Symptoms (Recalled from RN notes): No Functional Status (Recalled from RN notes): n/a - History of Present Illness Provider Complaint: Patient states that she has been around several coworkers that have tested positive for COVID states that she has had a little cough but denies fever, chills or bodyaches States that they wanted to get her tested before she returns to work - Related Data Home Medications Medication Instructions Recorded Confirmed prenat.vits,sidney,eck-rrax-plzpe 1 tab PO DAILY 04/29/21 08/03/21 ferrous sulfate 325 mg (65 mg 325 mg PO BID 08/03/21 08/03/21 iron) tablet Previous Rx's Medication Instructions Recorded famotidine 20 mg tablet 20 mg PO DAILY #30 tab 06/24/21 nitrofurantoin 100 mg PO BID 10 Days #20 cap 06/24/21 monohydrate/macrocrystals 100 mg capsule Allergies Allergy/AdvReac Type Severity Reaction Status Date / Time No Known Allergies Allergy Verified 08/17/21 11:59 - Worker's Comp Is this a Worker's Comp case?: No [facility] History - Hepatitis A Screen Attestation statement:: This patient has been screened for Hepatitis A risk factors. I have reviewed the patient's past medical history: Yes Medical History: Denies:: Cancer, Diabetes Mellitus Type 1, Diabetes Mellitus Type 2, Hypertension, MRSA Other Surgeries: Yes: No Previous Surgery, Appendectomy, Other. No: Amputation: No Fractures: No Comment: Esophagus stretched 2001 - Social History Smoking Status: Former smoker Tobacco Type: cigarettes # Packs/Day (cigarettes): 1 Alcohol Intake: current Alcohol Intake Frequency:: holidays/special occasions only Substance Use Type: denies use Occupational Status: employed Housing: house Household Members: significant other, children Family Hx:: Anemia, Cancer, Coronary Artery Disease, Heart Attack, Hyperlipidemia, Hypertension, Stroke ROS Obtained: Yes All systems reviewed & no additional complaints, Yes Systems reviewed as approp
[2021-08-17 12:04] VITALS: BP 133/78; PULSE 71; RESP 17; TEMP 36.9
[2021-08-17 12:27] LABS: Coronavirus 19, PCR Detected (NotDetected)
== END 2021-08-17 12:07 | disposition home or self-care (01) ==
LOC: UTC 11:56
PROVIDERS: Emergency Provider Nurse Practitioner; PCP Family Medicine
DX: U07.1 COVID-19 (principal)
CPT/HCPCS: 99212; C9803; G0463; U0003; U0005

== ENCOUNTER → 2022-01-05 15:13 | Outpatient (CLI) | payer OTHER, SELFPAY ==
[2022-01-05 16:54] LABS: HCG,Quantitative 4871 mIU/ml (0-5.42)
== END ==
PROVIDERS: PCP Family Medicine; Visit Provider Obstetrics & Gynecology
DX: N92.6 Irregular menstruation, unspecified (principal); Z32.00 Encounter for pregnancy test, result unknown
CPT/HCPCS: 36415; 84702

== ENCOUNTER → 2022-01-14 13:00 | Outpatient (CLI) | payer OTHER, SELFPAY ==
[2022-01-14 16:18] LABS: HCG,Quantitative 5201 mIU/ml (0-5.42)
[2022-01-16 08:21] LABS: Progesterone 2.8 ng/mL (.)
== END ==
PROVIDERS: Obstetrics & Gynecology; Visit Provider Obstetrics & Gynecology
DX: O46.90 Antepartum hemorrhage, unspecified, unspecified trimester (principal)
CPT/HCPCS: 84144; 84702

== ENCOUNTER → 2022-01-14 14:14 | Outpatient (CLI) | payer OTHER, SELFPAY ==
--- NOTE | 2022-01-14 14:17 | US_ITS ---
FINAL REPORT CLINICAL HISTORY: vaginal bleeding in FINDINGS: Transvaginal sonographic images of the pelvis were obtained. The uterus measures 9.2 x 4.6 cm. No intrauterine is identified. A heterogeneous area in the endometrial cavity measuring 3.8 x 1.7 cm could represent a blood clot or possibly products of conception. The right ovary measures 3.3 cm in length and left ovary measures 3.2 cm in length. Normal blood flow seen to the ovaries. Small follicles are present. There is no adnexal mass and no evidence of free fluid. IMPRESSION: No intrauterine is identified. Heterogeneous area in the endometrial cavity measuring 3.8 x 1.7 cm could represent a blood clot or possibly products of conception. Recommend follow-up ultrasound. Reviewed, Interpreted and Dictated by Herminio Orozco III, MD Transcribed by Elvie Izquierdo Authenticated and [facility]
== END ==
PROVIDERS: PCP Family Medicine; Visit Provider Obstetrics & Gynecology
DX: O46.90 Antepartum hemorrhage, unspecified, unspecified trimester (principal)
CPT/HCPCS: 76830

== ENCOUNTER → 2022-01-15 14:16 | Outpatient (CLI) | payer OTHER, SELFPAY ==
[2022-01-15 12:04] LABS: Basophils % 0.7 % (0.1-2.0); Eosinophils # 0.1 K/mm3 (0.0-0.4); Eosinophils % 1.4 % (0.1-12.0); Hematocrit 42.6 % (37.0-47.0); Hemoglobin 13.7 g/dL (12.2-16.2); Lymphocytes # 1.6 K/mm3 (0.7-4.5); Lymphocytes % 25.7 % (10-50); Mean Corpuscular HGB Conc 32.1 g/dL (31.8-35.4); Mean Corpuscular Hemoglobin 29.4 pg (27.0-31.2); Mean Corpuscular Volume 91.6 fl (81-99); Mean Platelet Volume 8.2 fl (7.4-10.4); Monocytes # 0.3 K/mm3 (0.1-1.0); Monocytes % 4.6 % (1.7-9.3); Neutrophils # 4.3 K/mm3 (1.8-7.8); Neutrophils % 67.7 % (37.0-80.0); Platelet Count 446 K/mm3 (142-424); Red Blood Count 4.65 M/mm3 (4.20-5.40); Red Cell Distribution Width 13.5 % (11.5-17.5); White Blood Count 6.4 K/mm3 (4.8-10.8)
== END ==
PROVIDERS: Visit Provider Obstetrics & Gynecology
DX: O46.90 Antepartum hemorrhage, unspecified, unspecified trimester (principal)
CPT/HCPCS: 85025

== ENCOUNTER → 2022-09-01 16:06 | Outpatient (CLI) | payer OTHER, SELFPAY ==
[2022-09-01 17:25] LABS: HCG,Quantitative 13409 mIU/ml (0-5.42)
[2022-09-03 11:46] LABS: Progesterone 8.3 ng/mL (.)
== END ==
PROVIDERS: PCP Family Medicine; Visit Provider Obstetrics & Gynecology
DX: Z34.92 Encounter for supervision of normal pregnancy, unspecified, second trimester (principal); Z3A.16 16 weeks gestation of pregnancy
CPT/HCPCS: 36415; 84144; 84702

== ENCOUNTER → 2022-09-08 15:47 | Outpatient (CLI) | payer OTHER, SELFPAY ==
[2022-09-10 08:19] LABS: Progesterone 18.7 ng/mL (.)
== END ==
PROVIDERS: PCP Family Medicine; Visit Provider Obstetrics & Gynecology
DX: Z34.91 Encounter for supervision of normal pregnancy, unspecified, first trimester (principal); Z3A.16 16 weeks gestation of pregnancy
CPT/HCPCS: 36415; 84144

== ENCOUNTER → 2022-09-20 15:00 | Outpatient (CLI) | payer OTHER, SELFPAY | PROVIDERS: Visit Provider Obstetrics & Gynecology | DX: Z34.91 Encounter for supervision of normal pregnancy, unspecified, first trimester (principal); Z3A.10 10 weeks gestation of pregnancy | CPT/HCPCS: 87086 ==

== ENCOUNTER → 2022-09-22 07:00 | Outpatient (CLI) | payer OTHER, SELFPAY ==
[2022-09-22 07:28] LABS: Basophils % 0.2 % (0.1-2.0); Eosinophils # 0.1 K/mm3 (0.0-0.4); Eosinophils % 1.8 % (0.1-12.0); Hematocrit 38.8 % (37.0-47.0); Lymphocytes # 1.2 K/mm3 (0.7-4.5); Lymphocytes % 24.8 % (10-50); Mean Corpuscular HGB Conc 33.6 g/dL (31.8-35.4); Mean Corpuscular Hemoglobin 30.5 pg (27.0-31.2); Mean Corpuscular Volume 90.7 fl (81-99); Mean Platelet Volume 7.2 fl (7.4-10.4); Monocytes # 0.4 K/mm3 (0.1-1.0); Monocytes % 7.4 % (1.7-9.3); Neutrophils # 3.1 K/mm3 (1.8-7.8); Neutrophils % 65.8 % (37.0-80.0); Platelet Count 248 K/mm3 (142-424); Red Blood Count 4.27 M/mm3 (4.20-5.40); Red Cell Distribution Width 13.2 % (11.5-17.5); White Blood Count 4.7 K/mm3 (4.8-10.8)
[2022-09-23 10:47] LABS: Rubella Antibodies, IgG 7.15 index (Immune >0.99)
[2022-09-23 11:52] LABS: Rapid Plasma Reagin Ab Titer Non Reactive (NonRea<1:1)
[2022-09-30 11:17] LABS: HIV Screen 4th Generation wRfx Non Reactive
[2022-09-30 11:18] LABS: Hepatitis B Surface Antigen Negative; Hepatitis C Antibody Non Reactive
== END ==
PROVIDERS: PCP Family Medicine; Visit Provider Obstetrics & Gynecology
DX: Z34.91 Encounter for supervision of normal pregnancy, unspecified, first trimester (principal); Z3A.08 8 weeks gestation of pregnancy
CPT/HCPCS: 36415; 85025; 86593; 86703; 86762; 86850; 87340; 87380; G0432

== ENCOUNTER → 2022-12-14 13:48 | Outpatient (CLI) | payer OTHER, SELFPAY ==
--- NOTE | 2022-12-14 13:48 | US_ITS ---
PROCEDURE: US OB /MATERNAL DETAIL CLINICAL INDICATION: anatomy scan COMPARISON: No exams were available for comparison FINDINGS: Transabdominal sonographic images of the pelvis were obtained. From her established due date she is 20 weeks 6 days. Single viable intrauterine gestation. Breech position. Placenta: Posteriorplacenta grade 1. There appears to be an accessory lobe. There is an average amount of fluid. MVP 4.0 cm. The cervix appears satisfactory. Closed and measuring 3.80 cm in length. Complete survey performed and was unremarkable on the submitted images as in PACS. No discrete anomalies identified on survey imaging by technologist. Active fetus. Three-vessel cord with satisfactory umbilical cord insertion. 4- chamber heart noted. Aortic arch, LVOT, RVOT, three-vessel view appear normal. Survey of brain & ventricles Unremarkable. Thalamus, cisterna magna, cerebellum, choroid plexus appear normal. Face and neck survey unremarkable. Profile, nasion, lips and nose appeared normal. Diaphragm and chest views unremarkable. Abdomen: Both kidneys noted and unremarkable. Stomach and bladder noted and satisfactory. Spine: Survey of the spine satisfactory with no anomalies identified nor imaged. Cervical, thoracic, lower spine appears normal. Both arms and legs noted. Amniotic Fluid: Adequate. Measurements: Average ultrasound age 21weeks 1day. Estimated due date by ultrasound age 0304/25/2023. Estimated weight 387g BPD = 21weeks 1day HC = 21weeks 3days AC = 21weeks 3days FL = 20weeks 2days Growth Percentile= 49 Heart Rate = 143bpm Cerebellum = 20weeks Humerus = 21weeks 4days HC/AC is 1.17 CI is 2.07 FL/BPD is 0.66 FL/AC is 0.2 IMPRESSION: 1. Viable fetus in the breech presentation with a posterior placenta grade 1. There appears to be an accessory lobe. 2. The fluid is within normal limits. 3. Anatomical scan appears normal. 4. biometry is consistent with dates. Dictated by: Jim Vilchis MD 12/15/2022 13:54 Jim Vilchis MD in [facility] 12/15/2022 13:54
== END ==
PROVIDERS: PCP Family Medicine; Visit Provider Obstetrics & Gynecology
DX: Z34.92 Encounter for supervision of normal pregnancy, unspecified, second trimester (principal); Z3A.20 20 weeks gestation of pregnancy
CPT/HCPCS: 76811

== ENCOUNTER → 2023-01-21 08:38 | Outpatient (CLI) | payer OTHER, SELFPAY ==
[2023-01-21 09:16] LABS: Basophils % 0.3 % (0.1-2.0); Eosinophils # 0.2 K/mm3 (0.0-0.4); Eosinophils % 1.6 % (0.1-12.0); Hematocrit 39.9 % (37.0-47.0); Hemoglobin 13.3 g/dL (12.2-16.2); Lymphocytes # 1.7 K/mm3 (0.7-4.5); Lymphocytes % 18.1 % (10-50); Mean Corpuscular HGB Conc 33.2 g/dL (31.8-35.4); Mean Corpuscular Hemoglobin 31.4 pg (27.0-31.2); Mean Corpuscular Volume 94.7 fl (81-99); Mean Platelet Volume 8.1 fl (7.4-10.4); Monocytes # 0.5 K/mm3 (0.1-1.0); Monocytes % 4.9 % (1.7-9.3); Neutrophils # 6.9 K/mm3 (1.8-7.8); Platelet Count 239 K/mm3 (142-424); Red Blood Count 4.22 M/mm3 (4.20-5.40); Red Cell Distribution Width 13.8 % (11.5-17.5); White Blood Count 9.2 K/mm3 (4.8-10.8)
[2023-01-21 09:23] LABS: Glucose,Fasting 89 mg/dl (74-100)
[2023-01-21 10:45] LABS: Glucose 1 Hour 120 mg/dL (74-100)
== END ==
PROVIDERS: PCP Family Medicine; Visit Provider Obstetrics & Gynecology
DX: Z34.92 Encounter for supervision of normal pregnancy, unspecified, second trimester (principal); Z3A.26 26 weeks gestation of pregnancy
CPT/HCPCS: 36415; 82951; 85025

== ENCOUNTER 2023-03-09 13:19 | Outpatient (CLI) | payer OTHER, SELFPAY ==
--- NOTE | 2023-03-09 13:20 | US_ITS ---
PROCEDURE: US OB BIOPHYSICAL PROFILE CLINICAL INDICATION: US OB BPP/Growth with FABIAN COMPARISON: US US OB /MATERNAL DETAIL from 12/14/2022 FINDINGS: Transabdominal sonographic images of the uterus were obtained. From her established due date she is 33weeks 0 days. The following parameters are obtained: Viable Fetus in the cephalic presentation with a posterior placenta grade 1. Average ultrasound age is 35weeks 3days Estimated weight 2,508g, 5 lb 8 oz. The cervix measures 3.5 cm Measurements: heart Rate = 134bpm BPD = 35weeks 6days, 98 percentile HC = 36weeks 5days, 94 percentile AC = 34weeks 4days, 87 percentile FL = 34weeks 2days, 73 percentile HC/AC is 1.06 FL/BPD is 0.75 FL/AC is 0.22 90 percentile Amniotic fluid index: 15.86cm, MVP 5.24 cm Qualitative AFV:2 Breathing movements: 2 Gross Body Movements: 2 Tone: 2 Biophysical profile score: 8 No obvious anomalies evident.Kidneys, profile, nasion, bladder, stomach, diaphragm, three-vessel cord appear normal. IMPRESSION: 1. Viable fetus in the cephalic presentation with a posterior placenta grade 1. 2. The fluid is within normal limits with an amniotic fluid index of 15.86 cm, MVP 5.24 cm. 3. Biophysical profile is 8/8 with good breathing movement and movement seen. 4. There has been accelerated growth with the fetus currently 90th percentile. Fetus is globally large. AC is 87 percentile. Dictated by: Jim Vilchis MD 03/09/2023 15:04 Jim Vilchis MD in [facility] 03/09/2023 15:04
== END 2023-03-09 23:59 ==
LOC: RAD 13:20
PROVIDERS: PCP Family Medicine; Visit Provider Obstetrics & Gynecology
DX: O36.63X0 Maternal care for excessive fetal growth, third trimester, not applicable or unspecified (principal); Z3A.33 33 weeks gestation of pregnancy
CPT/HCPCS: 76816; 76819

== ENCOUNTER 2023-04-01 16:46 | Outpatient (CLI) | payer OTHER, SELFPAY | END 2023-04-01 23:59 | LOC: LAB.DROPOF 16:47 | PROVIDERS: PCP Obstetrics & Gynecology; Visit Provider Obstetrics & Gynecology | DX: O26.893 Other specified pregnancy related conditions, third trimester (principal); Z3A.36 36 weeks gestation of pregnancy | CPT/HCPCS: 86403 ==

== ENCOUNTER 2023-04-08 12:38 | Outpatient (CLI) | payer OTHER, SELFPAY ==
--- NOTE | 2023-04-08 12:45 | US_ITS ---
PROCEDURE: US OB BIOPHYSICAL PROFILE CLINICAL INDICATION: growth COMPARISON: US US OB BIOPHYSICAL PROFILE from 03/09/2023 FINDINGS: Transabdominal sonographic images of the uterus were obtained. From her established due date she is 37 weeks 2 days. The following parameters are obtained: Viable Fetus in the cephalic presentation with a posterior placenta grade 1. Average ultrasound age is 39weeks 4days Estimated weight 3,813g, 8 lb 6 oz. Measurements: heart Rate = 143bpm BPD = 40weeks 1day, greater than 98 percentile HC = 39weeks 6days, 83rd percentile AC = 40weeks 0 days, greater than 98 percentile FL = 38weeks 0 days, 67 percentile HC/AC is 0.96 FL/BPD is 0.76 FL/AC is 0.21 97 percentile Amniotic fluid index: 19.69cm, MVP 6.71 cm. Qualitative AFV:2 Breathing movements: 2 Gross Body Movements: 2 Tone: 2 Biophysical profile score: 8 No obvious anomalies evident.Kidneys, four-chamber heart, stomach, three-vessel cord appear normal. IMPRESSION: 1. Viable fetus in the cephalic presentation with a posterior placenta grade 1. 2. The fluid is within normal limits with an amniotic fluid index of 19.69 cm, MVP 6.71 cm. 3. Biophysical profile is 8/8 with good breathing movement and movement seen. 4. Fetus is large for gestational age with the growth currently 97 percentile. The head and AC are greater than 98 percentile. 5. Limited anatomical scan appears normal. Dictated by: Jim Vilchis MD 04/08/2023 17:23 Jim Vilchis MD in [facility] 04/08/2023 17:23
== END 2023-04-08 23:59 ==
LOC: RAD 12:39
PROVIDERS: PCP Family Medicine; Visit Provider Obstetrics & Gynecology
DX: O36.63X0 Maternal care for excessive fetal growth, third trimester, not applicable or unspecified (principal); O09.523 Supervision of elderly multigravida, third trimester; Z3A.37 37 weeks gestation of pregnancy; N96 Recurrent pregnancy loss
CPT/HCPCS: 76816; 76819

== ENCOUNTER 2023-04-21 05:09 | Inpatient (IN) | payer OTHER, SELFPAY ==
[2023-04-21 05:16] VITALS: BMI 45.9
[2023-04-21 05:43] LABS: Basophils # 0.1 K/mm3 (0-0.2); Basophils % 0.7 % (0.1-2.0); Eosinophils # 0.1 K/mm3 (0.0-0.4); Hematocrit 34.9 % (37.0-47.0); Hemoglobin 11.7 g/dL (12.2-16.2); Lymphocytes # 1.7 K/mm3 (0.7-4.5); Lymphocytes % 23.2 % (10-50); Mean Corpuscular HGB Conc 33.5 g/dL (31.8-35.4); Mean Corpuscular Volume 92.5 fl (81-99); Mean Platelet Volume 8.6 fl (7.4-10.4); Monocytes # 0.4 K/mm3 (0.1-1.0); Monocytes % 5.9 % (1.7-9.3); Neutrophils % 69.2 % (37.0-80.0); Platelet Count 252 K/mm3 (142-424); Red Blood Count 3.77 M/mm3 (4.20-5.40); Red Cell Distribution Width 14.1 % (11.5-17.5); White Blood Count 7.3 K/mm3 (4.8-10.8)
[2023-04-21] MEDS: OXYTOCIN/RINGERS LACTATE 30 UNITS/500 ML BAG IV (05:55)
[2023-04-21] MEDS: DEXTROSE 5%-LACTATED RINGERS 1,000 ML 125 ML IV (05:55)
[2023-04-21 07:04] VITALS: BP 139/81; PULSE 74; RESP 18; TEMP 36.9; O2SAT 99; BMI 46.0
--- NOTE | 2023-04-21 07:38 | P.HP_ITS ---
OB - H&P: HPI Antepartum History of Present Illness Chief complaint: Elective induction of labor History of present illness: Danielle is a very pleasant 38 yo who presents to [facility] L&D for schedule elective induction of labor. Baby is active. She has had good care. Growth ultrasound viable fetus in the cephalic presentation with a posterior placenta grade 1. 2. The fluid is within normal limits with an amniotic fluid index of 19.69 cm, MVP 6.71 cm. 3. Biophysical profile is 8/8 with good breathing movement and movement seen. 4. Fetus is large for gestational age with the growth currently 97 percentile. The head and AC are greater than 98 percentile. 5. Limited anatomical scan appears normal. GBS negative. History of Present Criteria for establishing EDC:: based on 1st trimester US only care: good care Ultrasounds: normal mid trimester US Obstetrical complications: none Labs Blood type: O (+) positive Rubella: immune RPR/VDRL: nonreactive GBS status: negative HBsAG: negative PFSH PFSH Disclaimer: The information contained in this section may have been updated after the patient was seen, as this information can be updated by other users. Medical History (Updated 04/21/23 @ 07:48 by Janice Claire DO) Encounter for elective induction of labor 39 weeks gestation of Breech presentation of fetus Maternal obesity affecting , antepartum Advanced maternal age in multigravida History of recurrent miscarriages Surgical History History of appendectomy Family History Other No significant family history Social History (Updated 04/21/23 @ 06:20 by Nessa Aguirre RN) Smoking Status: Former smoker tobacco type: cigarettes packs per day: 1 alcohol intake: current substance use type: denies use current occupational status: employed Travel in the last 8 weeks: None household members: significant other and children housing: house Review of Systems Review of Systems Review of systems:: pertinent systems reviewed and negative unless documented below Meds Home Medications and Allergies Home Medications Medication Instructions Recorded Confirmed Type prenat.vits,sidney,nuz-tuxe-qcaii 1 tab PO DAILY 04/29/21 04/18/23 History aspirin 81 mg tablet,delayed 81 mg PO DAILY 12/14/22 04/18/23 History release (Adult Low Dose Aspirin) famotidine 20 mg tablet 20 mg PO DAILY #30 tabs 01/04/23 04/18/23 Rx New Prescriptions to Start Prescriptions: Allergies Allergy/AdvReac Type Severity Reaction Status Date / Time No Known Allergies Allergy Verified 04/18/23 08:38 OB - H&P: Exam Physical Exam Vital signs: Temp Pulse Resp BP Pulse Ox O2 Del Method 98.5 F 74 18 139/81 99 Room Air 04/21/23 07:04 04/21/23 07:04 04/21/23 07:04 04/21/23 07:04 04/21/23 07:04 04/21/23 07:04 Constitutional no acute distress and cooperative Routine HEENT Exam Head: Present normocephalic and atraumatic Eye: Absent conjunctivae pink ENT: Present mucous membranes moist Routine Neck Exam Present full ROM Routine Respiratory Exam Present CTA bilaterally and normal respiratory effort Routine Cardiovascular Exam Present RRR Routine Abdominal Exam Present soft (Gravid); Absent tenderness Routine Rectal Exam Patient deferred: visual exam Routine Exam Patient deferred: external exam Routine Extremities Exam Present edema (+3 bilateral lower extremity edema) and full ROM; Absent calf tenderness Routine Neurological Exam Present alert, moving all extremities and normal speech Routine Psychiatric Exam Present normal affect and cooperative Detailed Labor and Delivery Exam Dilation (cm): 5 Effacement (%): 75 Cervix position: anterior station: -2 Consistency: soft Membranes: artificially ruptured Amniotic fluid: clear Baseline heart rate: 125 monitor accelerations: Present monitor decelerations: None buttermaker continuous churn variability: Moderate (11-25) Contraction frequency (min): 4 OB - Results Labs Labs: Short CBC 04/21/23 Range/Units 05:30 WBC 7.3 (4.8-10.8) K/mm3 Hgb 11.7 L (12.2-16.2) g/dL Hct 34.9 L (37.0-47.0) % Plt Count 252 (142-424) K/mm3 OB - A/P Antepartum (1) 39 weeks gestation of : Status: Acute (2) Encounter for elective induction of labor: Status: Acute (3) Maternal obesity affecting , antepartum: Status: Acute (4) Advanced maternal age in multigravida: Status: Acute (5) Miscarriage at 8 to 28 weeks gestation: Problem details: 18 week loss Status: Acute Additional Plan Planning to breastfeed?: Yes Additional Information:: Admit to L&D for induction of labor with Pitocin GBS negative Close monitoring Anticipate vaginal delivery
[2023-04-21 07:40] LABS: Microscopic, Urine URINE MICROSCOPIC (MICROSCOPIC)
[2023-04-21] MEDS: DEXTROSE 5%-LACTATED RINGERS 1,000 ML 500 ML IV (08:00)
[2023-04-21 08:33] LABS: Appearance,Urine CLEAR (Clear); Bilirubin,Urine Negative (Negative); Blood, Urine Negative (Negative); Color,Urine YELLOW (Yellow); Glucose,Urine (UA) Negative (Negative); Ketones,Urine Negative (Negative); Leukocyte Esterase,Urine 1+ (Negative); Nitrate,Urine Negative (Negative); PH,Urine 6.5 (5.0-8.5); Protein,Urine TRACE (Negative); Specific Gravity, Urine 1.025 (1.005-1.030)
--- NOTE | 2023-04-21 08:39 | HMH.PHAINT1 ---
Pharmacy Intervention Comments: MEDICATION RECONCILIATION COMPLETED ON PATIENT USING EXTERNAL FILL HISTORY FROM PHARMACY. -NICOLE ARAMBULA, VIOLETD
[2023-04-21 08:54] LABS: Amphetamine/Metha Screen,Urine Negative ng/ml (<1000); Benzodiazepines Screen,Urine Negative ng/ml (<200)
[2023-04-21 08:55] LABS: Barbiturates Screen,Urine Negative ng/ml (<200); Methadone Screen,Urine Negative ng/ml (<300)
[2023-04-21 08:56] LABS: Cannabinoid Screen,Urine Negative ng/ml (<50)
[2023-04-21 08:57] LABS: Cocaine Screen,Urine Negative ng/ml (<300); Opiate Screen,Urine Negative ng/ml (<300)
[2023-04-21 08:58] LABS: Phencyclidine Screen,Urine Negative ng/ml (<25)
--- NOTE | 2023-04-21 08:59 | EXP.ANES.CKL ---
[facility] Disclaimer: The information contained in this section may have been updated after the patient was seen, as this information can be updated by other users. Medical History Encounter for elective induction of labor 39 weeks gestation of Breech presentation of fetus Maternal obesity affecting , antepartum Advanced maternal age in multigravida History of recurrent miscarriages Surgical History History of appendectomy Family History Other No significant family history Social History Smoking Status: Former smoker tobacco type: cigarettes packs per day: 1 alcohol intake: current substance use type: denies use current occupational status: employed Travel in the last 8 weeks: None household members: significant other and children housing: house [facility] Anesthesia Checklist Patient Identification Patient Identification: Arm Band and Verbal (Name & ) Structural Data Admitted From: Inpatient Planned Operative Procedure/s: Labor epidural Consent for Planned Operative Procedure(s) Verified: Yes NPO Status Verified Time NPO: 00:00 Chart Verification Results Verified: CBC Additional verifications Patient : Yes Anesthesia Reactions: No Airway Assessment Mallampati Score:: Class II C-Spine Mobility Assessed: Yes TMJ Mobility Assessed: Yes Dentition: Good Dentition Neurological Assessment Level of Consciousness: Awake Hx Seizures: No Numbness or tingling in extremities: No Anesthesia Plan Anesthesia Risk discussed: Yes Anesthesia Plan: Verified ASA Class: II Anesthesia Type: Epidural
[2023-04-21 09:06] LABS: Bacteria,Urine Trace /lpf
[2023-04-21] MEDS: ePHEDrine SULF 50MG/ML VIAL 10 MG IV (09:16)
[2023-04-21] MEDS: OXYTOCIN/RINGERS LACTATE 30 UNITS/500 ML BAG 40 UNITS IV (11:05)
--- NOTE | 2023-04-21 11:27 | EXP.DN ---
Delivery Note Delivery Date:: 04/21/23 Delivery Time:: 11:02 Anesthesia Type: Epidural Was labor medically induced?: No Induction method: per pitocin protocol Gestational age (weeks): 39 delivered prior to 39 weeks?: No Infant Gender: Male at 1 minute: 7 at 5 minutes: 9 LAC or MLE?: LAC Delivery Procedure:: Mom complete with epidural. Pushed for approximately 7 minutes. Head delivered spontaneously over intact perineum in JAQUELIN position. No nuchal cord. Mild shoulder dystocia present and relieved with Dennys maneuver and suprapubic pressure within 30 seconds. Anterior shoulder delivered spontaneously. Posterior shoulder and remainder of body delivered spontaneously. Baby placed on maternal abdomen, mouth and nares bulb suctioned, warmed/dried and stimulated. Delayed cord clamping was performed for 60 seconds. Cord was clamped and cut by father of baby. Cord blood was obtained. Placenta delivered spontaneously and intact. First degree perineal laceration repaired with 3-0 Vicryl. Hemostasis noted. Mom and baby were skin to skin and doing well after delivery. Live male baby (baby's name is Gibson Freedman) APGARs 7 (1 min), 9 (5 min) EBL 250 mL Placental Delivery Description: Spontaneous
[2023-04-21 20:10] VITALS: BP 125/72; PULSE 91; RESP 18; TEMP 36.8; O2SAT 99
[2023-04-22] MEDS: IBUPROFEN 400 MG TABLET 800 MG PO ×2 (00:38→09:46)
[2023-04-22] MEDS: ACETAMINOPHEN 500MG TAB 1000 MG PO ×2 (00:38→09:46)
[2023-04-22 07:45] LABS: Basophils % 0.3 % (0.1-2.0); Eosinophils # 0.1 K/mm3 (0.0-0.4); Eosinophils % 0.9 % (0.1-12.0); Hematocrit 31.5 % (37.0-47.0); Hemoglobin 10.2 g/dL (12.2-16.2); Lymphocytes % 24.2 % (10-50); Mean Corpuscular HGB Conc 32.5 g/dL (31.8-35.4); Mean Corpuscular Hemoglobin 30.8 pg (27.0-31.2); Mean Corpuscular Volume 94.7 fl (81-99); Mean Platelet Volume 8.3 fl (7.4-10.4); Monocytes # 0.4 K/mm3 (0.1-1.0); Monocytes % 5.3 % (1.7-9.3); Neutrophils # 5.7 K/mm3 (1.8-7.8); Neutrophils % 69.3 % (37.0-80.0); Platelet Count 203 K/mm3 (142-424); Red Blood Count 3.33 M/mm3 (4.20-5.40); White Blood Count 8.2 K/mm3 (4.8-10.8)
--- NOTE | 2023-04-22 12:39 | EXP.DC.SUM ---
General Admission date:: 04/21/23 Discharge date: 04/22/23 HPI HPI HPI: PPD # 1 s/p Feeling well. Breast feeding. Lochia is appropriate. Voiding without difficulty, passing flatus. Tolerating regular diet. Denies fever/chills, chest pain and shortness of breath. No headaches, vision changes, lightheadedness/dizziness. She has bilateral lower extremity swelling. Ambulating well ad mary. Hospital Course Hospital Course Hospital Course: Danielle is a very pleasant 38 yo who presents to [facility] L&D for schedule elective induction of labor. Baby is active. She has had good care. Growth ultrasound viable fetus in the cephalic presentation with a posterior placenta grade 1. 2. The fluid is within normal limits with an amniotic fluid index of 19.69 cm, MVP 6.71 cm. 3. Biophysical profile is 8/8 with good breathing movement and movement seen. 4. Fetus is large for gestational age with the growth currently 97 percentile. The head and AC are greater than 98 percentile. 5. Limited anatomical scan appears normal. GBS negative. She underwent induction of labor with Pitocin and amniotomy. She had a normal spontaneous vaginal delivery on 04/21/23 at 1102. She delivered a live male baby, Gibson, weighing 10 lb 3 oz. APGARs 7 (1 min), 9 (5 min). EBL 250 mL. She did well . Pain controlled. Breast feeding. Lochia appropriate. Voiding without difficulty and passing flatus. Tolerating regular diet. Denies fever/chills, chest pain and shortness of breath. No headaches, dizziness/lightheadedness or vision changes. Vital signs stable, afebrile. Heart regular rate and rhythm. Lungs clear to auscultation. Abdomen soft, nontender. +2 bilateral lower extremity swelling, no calf tendernress. Ambulating well ad mary. Normal hospital course. She was discharged to home on POD # 1 with instructions to follow-up in the office in 2 weeks or sooner if needed. Exam Data for Last 24 hours Vital signs and Labs for Last 24 Hours: Temp Pulse Resp BP Pulse Ox O2 Del Method 98.3 F 91 H 18 125/72 99 Room Air 04/21/23 20:10 04/21/23 20:10 04/21/23 20:10 04/21/23 20:10 04/21/23 20:10 04/21/23 20:10 Laboratory Results - last 24 hr 04/22/23 06:45: WBC 8.2, RBC 3.33 L, Hgb 10.2 L, Hct 31.5 L, MCV 94.7, MCH 30.8, MCHC 32.5, RDW 14.0, Plt Count 203, MPV 8.3, Neut % (Auto) 69.3, Lymph % (Auto) 24.2, Amelia % (Auto) 5.3, Eos % (Auto) 0.9, Baso % (Auto) 0.3, Neut # (Auto) 5.7, Lymph # (Auto) 2.0, Amelia # (Auto) 0.4, Eos # (Auto) 0.1, Baso # (Auto) 0.0 I & O for Last 24 hours: Intake & Output 04/19/23 04/20/23 04/21/23 04/22/23 23:59 23:59 23:59 23:59 Weight 275 lb 15.982 oz Constitutional Constitutional: no acute distress and cooperative *Routine HEENT Exam Head: Present normocephalic and atraumatic Eye: Absent scleral injection ENT: Present mucous membranes moist *Routine Neck Exam Neck: Present full ROM *Routine Respiratory Exam Respiratory: Present CTA bilaterally and normal respiratory effort *Routine Cardiovascular Exam Cardiovascular: Present RRR *Routine Abdominal Exam Abdominal: Present soft; Absent tenderness or distended Comments: Uterine fundus firm and below umbilicus *Routine Rectal Exam Patient deferred: visual exam *Routine Exam Patient deferred: external exam *Routine Extremities Exam Extremities: Present edema (+2 bilateral lower extremity edema) and full ROM; Absent calf tenderness *Routine Neurological Exam Neurological: Present alert, moving all extremities and normal speech Routine Psychiatric Exam Psychiatric: Present normal affect and cooperative Results Data Completed and Pending Labs on day of discharge: Labs from last 24 hours 04/22/23 06:45 WBC 8.2 RBC 3.33 L Hgb 10.2 L Hct 31.5 L MCV 94.7 MCH 30.8 MCHC 32.5 RDW 14.0 Plt Count 203 MPV 8.3 Neut % (Auto) 69.3 Lymph % (Auto) 24.2 Amelia % (Auto) 5.3 Eos % (Auto) 0.9 Baso % (Auto) 0.3 Neut # (Auto) 5.7 Lymph # (Auto) 2.0 Amelia # (Auto) 0.4 Eos # (Auto) 0.1 Baso # (Auto) 0.0 DS: Diagnosis Discharge Diagnosis (1) 39 weeks gestation of : Status: Acute Code(s): Z3A.39 - 39 weeks gestation of (2) Encounter for elective induction of labor: Status: Acute Code(s): Z34.90 - Encounter for supervision of normal , unspecified, unspecified trimester (3) Maternal obesity affecting , antepartum: Status: Acute Code(s): O99.210 - Obesity complicating , unspecified trimester Qualifiers: Obesity type affecting : unspecified obesity Qualified Code(s): O99.210 - Obesity complicating , unspecified trimester (4) Advanced maternal age in multigravida: Status: Acute Code(s): O09.529 - Supervision of elderly multigravida, unspecified trimester Qualifiers: Trimester: unspecified trimester Qualified Code(s): O09.529 - Supervision of elderly multigravida, unspecified trimester (5) Miscarriage at 8 to 28 weeks gestation: Status: Acute Code(s): O03.9 - Complete or unspecified spontaneous without complication Problem details: 18 week loss (6) Acute blood loss anemia: Status: Acute Code(s): D62 - Acute posthemorrhagic anemia Meds Home Medications and Allergies Home Medications Medication Instructions Recorded Confirmed Type famotidine 20 mg tablet 20 mg PO DAILY #30 tabs 01/04/23 04/21/23 Rx vit no.95-ferrous 1 tab PO DAILY 04/21/23 04/21/23 History fumarate 28 mg-folic acid 800 mcg tablet () ibuprofen 800 mg tablet 800 mg PO Q8H PRN pain #20 tabs 04/22/23 Rx New Prescriptions to Start Prescriptions: Janice Mackey Allergies Allergy/AdvReac Type Severity Reaction Status Date / Time No Known Allergies Allergy Verified 04/18/23 08:38 Discharge Plan Disposition Patient Disposition: Home, Self-Care Condition: Good Discharge Order Discharge Orders: Discharge Order (Routine); Ordered 04/22/23 Ordered By: Janice Claire Follow up Plan Follow up with: Janice Claire DO [Staff Physician] - 2 weeks Prescriptions/Medication Reconciliation: New ibuprofen 800 mg tablet 800 mg PO Q8H PRN (Reason: pain) Qty: 20 0RF Continued famotidine 20 mg tablet 20 mg PO DAILY Qty: 30 2RF PNV cmb#95-ferrous fumarate-FA [] 28 mg iron- 800 mcg Tablet 1 tab PO DAILY Discontinued aspirin [Adult Low Dose Aspirin] 81 mg tablet,delayed release (DR/EC) 81 mg PO DAILY Problem Reconciliation Problems Reviewed?: Yes Patient Discharge Instructions ACTIVITY: Limited activity DIET: continue same diet and regular diet Additional Instructions: Discharge: 1. Take 800 mg Ibuprofen every 8 hours as needed for pain. You can also take 500-1000 mg of Tylenol in between doses, every 6-8 hours. 2. Nothing in the vagina for 6 weeks - no intercourse, douching or tampons. No tub baths/hot tubs or swimming pools 3. Reasons to return to L&D or call On-Call doctor - fever (greater than 100.4) - heavy vaginal bleeding (soaking through 1 pad in less than 2 hours) - vaginal discharge (malodorous and/or purulent) - severe headaches not resolved by medication or rest and leg tenderness/edema 4. depression/blues - Normal to feel anxious/overwhelmed for first 2 weeks - Talk to your doctor if: severe anxiety, trouble bonding with baby, withdrawing from other family members, thoughts of harming yourself or others Janice Claire DO [facility] [phone] Patient Instructions: Depression, Hemorrhage, DI for Labor and Delivery, Vaginal , DI for Pre-eclampsia, [facility] Post Discharge Instructions Providers Primary Care Provider: Bill Valencia Admit Provider: Janice Claire Attending Provider: Janice Claire
[2023-04-22] MEDS: BENZOCAINE-MENTHOL SPRAY 56GM CAN TP (15:55)
[2023-04-22] MEDS: PRENATAL MULTIVITAMIN W/IRON 1 EACH PO (15:55)
== END 2023-04-22 17:23 | disposition home or self-care (01) | DRG 807 ==
PROVIDERS: Admitting Provider Obstetrics & Gynecology; PCP Family Medicine; Visit Provider Obstetrics & Gynecology
DX: O70.0 First degree perineal laceration during delivery (principal); Z37.0 Single live birth; Z3A.39 39 weeks gestation of pregnancy
CPT/HCPCS: 59409; 36415; 59025; 80307; 81001; 85025; 86850; 87086; 94761; G0283

== ENCOUNTER 2023-09-28 14:27 | Outpatient (CLI) | payer OTHER, SELFPAY ==
[2023-09-28 15:37] LABS: HCG,Quantitative 3987 mIU/ml (0-5.42)
== END 2023-09-28 23:59 | disposition home or self-care (01) ==
LOC: LAB 14:29
PROVIDERS: PCP Family Medicine; Visit Provider Obstetrics & Gynecology
DX: Z34.90 Encounter for supervision of normal pregnancy, unspecified, unspecified trimester (principal)
CPT/HCPCS: 36415; 84144; 84702

== ENCOUNTER 2023-10-13 08:18 | Outpatient (CLI) | payer OTHER, SELFPAY | END 2023-10-13 23:59 | disposition home or self-care (01) | LOC: LAB.DROPOF 10-14 08:19 | PROVIDERS: PCP Obstetrics & Gynecology; Visit Provider Obstetrics & Gynecology | DX: Z36.89 Encounter for other specified antenatal screening (principal) | CPT/HCPCS: 87086; 87186 ==

== ENCOUNTER 2023-10-19 15:43 | Outpatient (CLI) | payer OTHER, SELFPAY ==
[2023-10-19 16:10] LABS: Basophils % 0.4 % (0.1-2.0); Eosinophils # 0.2 K/mm3 (0.0-0.4); Eosinophils % 2.1 % (0.1-12.0); Hematocrit 37.8 % (37.0-47.0); Hemoglobin 12.2 g/dL (12.2-16.2); Lymphocytes # 1.6 K/mm3 (0.7-4.5); Lymphocytes % 22.3 % (10-50); Mean Corpuscular HGB Conc 32.2 g/dL (31.8-35.4); Mean Corpuscular Hemoglobin 30.7 pg (27.0-31.2); Mean Corpuscular Volume 95.2 fl (81-99); Mean Platelet Volume 8.7 fl (7.4-10.4); Monocytes # 0.4 K/mm3 (0.1-1.0); Monocytes % 5.2 % (1.7-9.3); Neutrophils # 5.1 K/mm3 (1.8-7.8); Neutrophils % 69.9 % (37.0-80.0); Platelet Count 296 K/mm3 (142-424); Red Blood Count 3.97 M/mm3 (4.20-5.40); Red Cell Distribution Width 13.8 % (11.5-17.5); White Blood Count 7.3 K/mm3 (4.8-10.8)
[2023-10-20 13:20] LABS: HIV (1&2) Antibody Rapid NONREACTIVE (NONREACTIVE)
[2023-10-21 08:15] LABS: HCV Ab Non Reactive (Non Reactive); Hepatitis B Surface Antigen Negative (Negative)
[2023-10-21 10:24] LABS: Rubella Antibodies, IgG 8.54 index (Immune >0.99)
[2023-10-21 12:14] LABS: Rapid Plasma Reagin Ab Titer Non Reactive titer (NonRea<1:1)
== END 2023-10-19 23:59 | disposition home or self-care (01) ==
LOC: LAB 15:44
PROVIDERS: PCP Family Medicine; Visit Provider Obstetrics & Gynecology
DX: Z36.89 Encounter for other specified antenatal screening (principal)
CPT/HCPCS: 36415; 85025; 86593; 86762; 86803; 86850; 87340; 87389

== ENCOUNTER 2024-01-18 12:50 | Outpatient (CLI) | payer OTHER, SELFPAY ==
--- NOTE | 2024-01-18 12:51 | US_ITS ---
PROCEDURE: US OB /MATERNAL DETAIL CLINICAL INDICATION: 20 week Anatomy Scan /US OB Complete COMPARISON: No exams were available for comparison FINDINGS: Transabdominal sonographic images of the pelvis were obtained. From her established due date she is 20 weeks 3 days. Single viable intrauterine gestation. Cephalic position. Placenta: Anteriorplacenta grade 1. There is an average amount of fluid. The cervix appears satisfactory. Closed and measuring 3.12 cm in length. Complete survey performed and was unremarkable on the submitted images as in PACS. No discrete anomalies identified on survey imaging by technologist. Active fetus. Three-vessel cord with satisfactory umbilical cord insertion. 4- chamber heart noted. Situs, aortic arch, LVOT, RVOT, three-vessel view appear normal. Survey of brain & ventricles Unremarkable. Cerebellum, thalamus, choroid plexus, cisterna magna appear normal. Face and neck survey unremarkable. Profile, nasion, lips and nose appeared normal. Diaphragm and chest views unremarkable. Abdomen: Both kidneys noted and unremarkable. Stomach and bladder noted and satisfactory. Spine: Survey of the spine satisfactory with no anomalies identified nor imaged. Cervical, thoracic, lower spine appear normal. Both arms and legs noted. Amniotic Fluid: Adequate. MVP 3.16 cm Measurements: Average ultrasound age 20weeks 4days. Estimated due date by ultrasound age 0406/02/2024. Estimated weight 362g BPD = 20weeks 2days HC = 20weeks 2days AC = 20weeks 5days FL = 20weeks 4days Growth Percentile= 52 Heart Rate = 142bpm Cerebellum = 20weeks 1day Humerus = 21weeks 4days HC/AC is 1.14 FL/BPD is 0.72 FL/AC is 0.22 IMPRESSION: 1. Viable fetus in the cephalic presentation with an anterior placenta grade 1. 2. The fluid is within normal limits with an MVP 3.16cm. 3. Anatomical scan appears normal. 4. biometry is consistent with the dates. Dictated by: Jim Vilchis MD 01/19/2024 03:00 Jim Vilchis MD in [place] 01/19/2024 03:00
== END 2024-01-18 23:59 | disposition home or self-care (01) ==
LOC: RAD 12:51
PROVIDERS: PCP Family Medicine; Visit Provider Obstetrics & Gynecology
DX: O09.522 Supervision of elderly multigravida, second trimester (principal); Z64.1 Problems related to multiparity; O03.9 Complete or unspecified spontaneous abortion without complication; N96 Recurrent pregnancy loss; Z36.3 Encounter for antenatal screening for malformations; Z3A.20 20 weeks gestation of pregnancy
CPT/HCPCS: 76811

== ENCOUNTER 2024-03-15 09:02 | Outpatient (CLI) | payer OTHER, SELFPAY ==
[2024-03-15 10:24] LABS: Basophils % 0.2 % (0.1-2.0); Eosinophils # 0.1 K/mm3 (0.0-0.4); Eosinophils % 0.8 % (0.1-12.0); Hematocrit 32.6 % (37.0-47.0); Hemoglobin 11.2 g/dL (12.2-16.2); Lymphocytes # 1.3 K/mm3 (0.7-4.5); Lymphocytes % 14.5 % (10-50); Mean Corpuscular HGB Conc 34.4 g/dL (31.8-35.4); Mean Corpuscular Volume 90.3 fl (81-99); Mean Platelet Volume 8.8 fl (7.4-10.4); Monocytes # 0.4 K/mm3 (0.1-1.0); Monocytes % 4.5 % (1.7-9.3); Neutrophils % 79.7 % (37.0-80.0); Platelet Count 197 K/mm3 (142-424); Red Blood Count 3.61 M/mm3 (4.20-5.40); White Blood Count 8.8 K/mm3 (4.8-10.8)
[2024-03-15 10:34] LABS: Glucose 1 Hour 180 mg/dL (74-100)
[2024-03-15 19:18] LABS: RPR W/RFX Titers Nonreactive (Nonreactive)
== END 2024-03-15 23:59 | disposition home or self-care (01) ==
LOC: LAB 09:03
PROVIDERS: Visit Provider Obstetrics & Gynecology
DX: O09.529 Supervision of elderly multigravida, unspecified trimester (principal)
CPT/HCPCS: 36415; 82947; 85025; 86592

== ENCOUNTER 2024-04-12 10:56 | Outpatient (CLI) | payer OTHER, SELFPAY ==
--- NOTE | 2024-04-12 11:02 | US_ITS ---
PROCEDURE: US OB BIOPHYSICAL PROFILE CLINICAL INDICATION: GDM w/ FABIAN COMPARISON: US US OB /MATERNAL DETAIL from 01/18/2024 FINDINGS: Transabdominal sonographic images of the uterus were obtained. From her established due date she is 32weeks 4days. The following parameters are obtained: Viable Fetus in the breech presentation with an anterior placenta grade 1. There is a marginal insertion of the umbilical cord. It is 2 cm from the inferior edge of the placenta. Average ultrasound age is 33weeks 5days Estimated weight 2,310g, 5 lb 1 oz The cervix measures 3.05 cm. Transvaginally the cervix measures 2.58 cm-2.86 cm. No funneling seen. Measurements: heart Rate = BPD = 32weeks 4days, 41 percentile HC = 34weeks 2days, 57 percentile AC = 34weeks 4days, 94 percentile FL = 33weeks 2days, 54 percentile HC/AC is 1 FL/BPD is 0.79 FL/AC is 0.21 82 percentile Amniotic fluid index: 15.39cm, MVP 5.53 cm. Qualitative AFV:2 Breathing movements: 2 Gross Body Movements: 2 Tone: 2 Biophysical profile score: 8 No obvious anomalies evident.Kidneys, profile, stomach, bladder, three-vessel cord appear normal. One foot remained flexed throughout the exam-possible clubfoot. IMPRESSION: 1. Viable fetus in the breech presentation with an anterior placenta grade 1. There appears to be marginal insertion of the cord approximately 2 cm from the inferior edge of the placenta. 2. The fluid is within normal limits with amniotic fluid index 15.39 cm, MVP 5.53 cm. 3. Biophysical profile is 8/8 with good breathing movement and movement seen. 4. There has been good interval growth with the fetus currently 82nd percentile. The abdominal circumference is 2 weeks ahead. 5. One foot remained flexed throughout the entire exam and a clubfoot is a possibility. 6. The rest of the limited anatomical scan appears normal. Dictated by: Jim Vilchis MD 04/12/2024 13:43 Jim Vilchis MD in [facility] 04/12/2024 13:43
== END 2024-04-12 23:59 | disposition home or self-care (01) ==
LOC: RAD 10:56
PROVIDERS: PCP Family Medicine; Visit Provider Obstetrics & Gynecology
DX: O24.410 Gestational diabetes mellitus in pregnancy, diet controlled (principal); R82.71 Bacteriuria; Z64.1 Problems related to multiparity; N96 Recurrent pregnancy loss; O03.9 Complete or unspecified spontaneous abortion without complication; O09.523 Supervision of elderly multigravida, third trimester; Z3A.32 32 weeks gestation of pregnancy
CPT/HCPCS: 76816; 76819

== ENCOUNTER 2024-05-08 10:45 | Outpatient (CLI) | payer OTHER, SELFPAY | END 2024-05-08 23:59 | disposition home or self-care (01) | LOC: LAB.DROPOF 05-09 13:30 | PROVIDERS: PCP Nurse Practitioner Family; Visit Provider Obstetrics & Gynecology | DX: O09.523 Supervision of elderly multigravida, third trimester (principal); Z64.1 Problems related to multiparity; Z3A.36 36 weeks gestation of pregnancy | CPT/HCPCS: 86403 ==

== ENCOUNTER 2024-05-19 21:34 | Inpatient (IN) | payer OTHER, SELFPAY ==
[2024-05-19 21:25] VITALS: BMI 44.4
[2024-05-19] MEDS: OXYTOCIN/RINGERS LACTATE 30 UNITS/500 ML BAG 40 UNITS IV (21:49)
--- NOTE | 2024-05-19 21:58 | EXP.OB.APHP ---
OB - H&P: HPI Antepartum History of Present Illness Chief complaint: Painful contractions History of present illness: Ms Danielle Carolina is a 39 yo at 37w6d who presents to [facility] L&D for regular, painful contractions that started a few hours ago. She has had good care. complicated by GDMA1, AMA, grand multiparity and GBS bactiuria at initial ob visit. History of Present Criteria for establishing EDC:: based on 1st trimester US only care: good care Ultrasounds: normal mid trimester US Obstetrical complications: gestational diabetes Labs Blood type: O (+) positive Rubella: immune RPR/VDRL: nonreactive GBS status: positive HBsAG: negative PFSH PFSH Disclaimer: The information contained in this section may have been updated after the patient was seen, as this information can be updated by other users. Medical History (Updated 05/19/24 @ 22:04 by Janice Claire DO) Active labor at term GDM (gestational diabetes mellitus), class A1 GBS bacteriuria Grand multiparity Advanced maternal age in multigravida History of recurrent miscarriages Miscarriage at 8 to 28 weeks gestation Acute blood loss anemia Surgical History History of appendectomy Family History Other No significant family history Social History Smoking Status: Former smoker tobacco type: cigarettes packs per day: 1 alcohol intake: current alcohol intake frequency: holidays/special occasions only substance use type: denies use current occupational status: employed Travel in the last 8 weeks: None household members: significant other and children housing: house Have you lived/traveled outside US in past 30 days?: No Contact w/someone who lives/traveled outside US past 30 days?: No Exposure to someone with infectious disease in past 14 days?: No Do you have a fever (greater than 100.4 F or 38 C)?: No Have you tested positive for COVID-19: No Exposed to someone with COVID-19 in past 14 days?: No Do you have a sore throat?: No Do you have a cough?: No Do you have any weakness?: No Do you have any diarrhea?: No Are you experiencing any unusual bleeding?: No Do you have any muscle aches/pain?: No Do you have any abdominal pain?: No Are you experiencing loss of taste or smell?: No Other Medical History Have you received the Flu Vaccine for this season: No Have you received the Pneumonia Vaccine: No Review of Systems Review of Systems Review of systems:: pertinent systems reviewed and negative unless documented below *Genitourinary Comments: + regular, painful contractions Meds Home Medications and Allergies Home Medications ?Medication ?Instructions ?Recorded ?Confirmed ?Type vits no.126-ferrous fum 1 tab PO DAILY 10/13/23 05/15/24 History 28 mg iron-folic acid 800 mcg tablet (Classic ) famotidine 20 mg tablet (Pepcid) 20 mg PO BID #60 tabs 02/16/24 05/15/24 Rx New Prescriptions to Start Prescriptions: Allergies Allergy/AdvReac Type Severity Reaction Status Date / Time No Known Allergies Allergy Verified 05/15/24 11:12 OB - H&P: Exam Constitutional no acute distress and cooperative Routine HEENT Exam Head: Present normocephalic and atraumatic Eye: Absent conjunctivae pink ENT: Present mucous membranes moist Routine Neck Exam Present full ROM Routine Respiratory Exam Present CTA bilaterally and normal respiratory effort Routine Cardiovascular Exam Present RRR Routine Abdominal Exam Present soft (Gravid); Absent tenderness Routine Rectal Exam Patient deferred: visual exam Routine Exam External: Present normal urethra appearance; Absent erythema, swelling, tenderness, lesions or lacerations Routine Extremities Exam Present full ROM; Absent edema or calf tenderness Comments: + bilateral lower extremity varicose veins Routine Neurological Exam Present alert, moving all extremities and normal speech Routine Psychiatric Exam Present normal affect and cooperative Detailed Labor and Delivery Exam Dilation (cm): 10 Effacement (%): 100 OB - A/P Antepartum (1) GDM (gestational diabetes mellitus), class A1: Status: Acute (2) Advanced maternal age in multigravida: Status: Acute (3) Grand multiparity: Status: Acute (4) GBS bacteriuria: Problem details: in current Status: Acute Additional Plan Planning to breastfeed?: No Additional Information:: Admit to [facility] for active labor. Cervical exam, 10/100/bulging bag on admission
--- NOTE | 2024-05-19 22:05 | EXP.DN ---
Delivery Note Delivery Date:: 05/19/24 Delivery Time:: 21:24 Anesthesia Type: None Was labor medically induced?: No Gestational age (weeks): 37 Infant delivered prior to 39 weeks?: Yes Justification for early elective delivery:: Active Labor at 1 minute: 5 at 5 minutes: 7 Delivery Procedure:: Mom complete without epidural. Pushed spontaneously for one contraction. Head delivered spontaneously, quickly over intact perineum. Body delivered spontaneously with nuchal cord. Nuchal cord delivered through and removed from baby's neck. Baby placed on maternal abdomen, mouth and nares bulb suctioned, warmed/dried and stimulated. Delayed cord clamping was performed for 40 seconds. Cord was clamped and cut. Cord blood was obtained. Placenta delivered spontaneously and intact. Placenta will be sent to pathology for review. No lacerations. Mom and baby were skin to skin and doing well after delivery. Live female baby (baby's name is Ewelina) APGARs 5 (1 min), 7 (5 min), 9 (10 min) EBL 50 mL Placental Delivery Description: Spontaneous
[2024-05-19 23:09] LABS: Basophils % 0.2 % (0.1-2.0); Eosinophils # 0.1 K/mm3 (0.0-0.4); Eosinophils % 0.4 % (0.1-12.0); Hematocrit 36.5 % (37.0-47.0); Hemoglobin 12.2 g/dL (12.2-16.2); Lymphocytes # 2.6 K/mm3 (0.7-4.5); Lymphocytes % 20.9 % (10-50); Mean Corpuscular HGB Conc 33.4 g/dL (31.8-35.4); Mean Corpuscular Hemoglobin 29.3 pg (27.0-31.2); Mean Corpuscular Volume 87.7 fl (81-99); Mean Platelet Volume 9.9 fl (7.4-10.4); Monocytes # 0.9 K/mm3 (0.1-1.0); Monocytes % 7.2 % (1.7-9.3); Neutrophils # 8.9 K/mm3 (1.8-7.8); Neutrophils % 71.1 % (37.0-80.0); Nucleated Red Blood Cells # 0 10^3/uL; Nucleated Red Blood Cells % 0 %; Platelet Count 262 K/mm3 (142-424); Red Blood Count 4.16 M/mm3 (4.20-5.40); Red Cell Distribution Width 13.2 % (11.5-17.5); Red Cell Distribution Width-SD 41.8 fL; White Blood Count 12.6 K/mm3 (4.8-10.8)
[2024-05-19] MEDS: WITCH HAZEL 40 PADS/BOX 1 EACH TP (23:14)
[2024-05-19] MEDS: ACETAMINOPHEN 500MG TAB 1000 MG PO (23:14)
[2024-05-19] MEDS: IBUPROFEN 400 MG TABLET 800 MG PO (23:15)
[2024-05-19] MEDS: BENZOCAINE-MENTHOL SPRAY 56GM CAN TP (23:15)
[2024-05-19 23:16] LABS: Alanine Aminotransferase 17 U/L (12-78); Albumin Level 3.4 g/dl (3.5-5.0); Alkaline Phosphatase 82 U/L (38-126); Anion Gap 14.9 mEq/L (5-15); Aspartate Amino Transferase 32 U/L (14-36); Bilirubin,Total 0.5 mg/dl (0.2-1.3); Blood Urea Nitrogen 10 mg/dl (7-17); Calcium 9.3 mg/dl (8.4-10.2); Carbon Dioxide 18 mmol/L (22.0-30.0); Chloride 107 mmol/L (98-107); Creatinine Clearance Estimated 133 mL/min (50-200); Estimated Glomerular Filt Rate 136 ml/min (>60); GFR (African American) 165 ML/MIN (>60); Globulin 3.4 g/dL (1.3-3.2); Glucose 92 mg/dl (74-100); Glucose,Random 92 mg/dL (74-100); Potassium 3.9 mmoL/L (3.5-5.1); Sodium 136 mmol/L (136-145); Total Protein,Serum 6.8 g/dl (6.3-8.2)
[2024-05-20 07:58] LABS: Basophils % 0.2 % (0.1-2.0); Eosinophils # 0.1 K/mm3 (0.0-0.4); Eosinophils % 0.5 % (0.1-12.0); Hematocrit 33.5 % (37.0-47.0); Hemoglobin 11.4 g/dL (12.2-16.2); Lymphocytes # 2.1 K/mm3 (0.7-4.5); Lymphocytes % 15.7 % (10-50); Mean Corpuscular Hemoglobin 30.4 pg (27.0-31.2); Mean Corpuscular Volume 89.3 fl (81-99); Mean Platelet Volume 9.6 fl (7.4-10.4); Monocytes # 0.8 K/mm3 (0.1-1.0); Monocytes % 5.7 % (1.7-9.3); Neutrophils # 10.1 K/mm3 (1.8-7.8); Neutrophils % 77.5 % (37.0-80.0); Nucleated Red Blood Cells # 0 10^3/uL; Nucleated Red Blood Cells % 0 %; Platelet Count 220 K/mm3 (142-424); Red Blood Count 3.75 M/mm3 (4.20-5.40); Red Cell Distribution Width 13.2 % (11.5-17.5); Red Cell Distribution Width-SD 42.8 fL; White Blood Count 13.1 K/mm3 (4.8-10.8)
[2024-05-20] MEDS: IBUPROFEN 400 MG TABLET 800 MG PO ×2 (11:28→20:40)
[2024-05-20] MEDS: ACETAMINOPHEN 500MG TAB 1000 MG PO ×2 (11:29→20:39)
--- NOTE | 2024-05-20 13:12 | P.PN_ITS ---
Subjective *Date: 05/20/24 *Time: 13:12 Interval history: PPD # 1 s/p Feeling well. Pain controlled. Formula feeding. Lochia is appropriate. Voiding without difficulty and passing flatus. Tolerating regular diet. Denies fever/chills, chest pain and shortness of breath. No headaches, vision changes, lightheadedness/dizziness. No lower extremity swelling. Ambulating well ad mary. Medical Exam Vital signs and Labs for Last 24 Hours: Intake and Output 05/19/24 05/20/24 05/20/24 23:59 07:59 15:59 Other: Weight 267 lb Laboratory Results - last 24 hr 05/19/24 21:36: WBC 12.6 H, RBC 4.16 L, Hgb 12.2, Hct 36.5 L, MCV 87.7, MCH 29.3, MCHC 33.4, RDW 13.2, Plt Count 262, MPV 9.9, Neut % (Auto) 71.1, Lymph % (Auto) 20.9, [place] % (Auto) 7.2, Eos % (Auto) 0.4, Baso % (Auto) 0.2, Neut # (Auto) 8.9 H, Lymph # (Auto) 2.6, [place] # (Auto) 0.9, Eos # (Auto) 0.1, Baso # (Auto) 0.0, Sodium 136, Potassium 3.9, Chloride 107, Carbon Dioxide 18 L, Anion Gap 14.9, BUN 10, Creatinine 0.50 L, Estimated Creat Clear 133, Estimated GFR 136, Est GFR ( Amer) 165, Glucose 92, Random Glucose 92, Calcium 9.3, Total Bilirubin 0.5, AST 32, ALT 17, Alkaline Phosphatase 82, Total Protein 6.8, Albumin 3.4 L, Globulin 3.4 H, Albumin/Globulin Ratio 1.0 L, Blood Type O Positive, Antibody Screen Negative 05/20/24 07:33: WBC 13.1 H, RBC 3.75 L, Hgb 11.4 L, Hct 33.5 L, MCV 89.3, MCH 30.4, MCHC 34.0, RDW 13.2, Plt Count 220, MPV 9.6, Neut % (Auto) 77.5, Lymph % (Auto) 15.7, [place] % (Auto) 5.7, Eos % (Auto) 0.5, Baso % (Auto) 0.2, Neut # (Auto) 10.1 H, Lymph # (Auto) 2.1, [place] # (Auto) 0.8, Eos # (Auto) 0.1, Baso # (Auto) 0.0 I & O for Labs for Last 24 Hours: Intake & Output 05/17/24 05/18/24 05/19/24 05/20/24 23:59 23:59 23:59 23:59 Weight 267 lb Head: Present atraumatic and normocephalic ENT: Present normal exam Neck: Present normal inspection and full ROM Respiratory: Present CTA bilaterally and normal respiratory effort Cardiac: Present Reg Rate and Rhythm GI: Present soft; Absent distention or tenderness Rectal (female): Present deferred (female): Present deferred Extremities: Present full ROM; Absent edema or calf tenderness Neuro: Present alert, awake and moves all extremities Assessment and Plan *Assessment and plan (1) Status post normal vaginal delivery: Status: Acute Category: Medical (2) GDM (gestational diabetes mellitus), class A1: Status: Acute Category: Medical Code(s): O24.410 - Gestational diabetes mellitus in , diet controlled (3) Grand multiparity: Status: Acute Category: Medical Code(s): Z64.1 - Problems related to multiparity (4) Advanced maternal age in multigravida: Status: Acute Qualifiers: Trimester: unspecified trimester Qualified Code(s): O09.529 - Supervision of elderly multigravida, unspecified trimester Category: Medical Code(s): O09.529 - Supervision of elderly multigravida, unspecified trimester (5) GBS bacteriuria: Problem Comment: in current Status: Acute Category: Medical Code(s): R82.71 - Bacteriuria Plan Continue routine care AM Hgb 11.4 Plan d/c home tomorrow
[2024-05-20 20:28] VITALS: BP 142/78; PULSE 82; RESP 16; TEMP 36.8; O2SAT 97
[2024-05-21 04:28] VITALS: BP 123/58; PULSE 75; RESP 18; TEMP 36.8; O2SAT 98
[2024-05-21] MEDS: ACETAMINOPHEN 500MG TAB 1000 MG PO (04:37)
[2024-05-21] MEDS: IBUPROFEN 400 MG TABLET 800 MG PO (04:37)
[2024-05-21 08:08] LABS: RPR W/RFX Titers Nonreactive (Nonreactive)
--- NOTE | 2024-05-21 08:40 | EXP.DC.SUM ---
General Admission date:: 05/19/24 Discharge date: 05/21/24 HPI HPI HPI: PPD # 2 s/p Feeling well. Pain controlled. Formula feeding. Lochia is appropriate. Voiding without difficulty and passing flatus. Tolerating regular diet. Denies fever/chills, chest pain and shortness of breath. No headaches, vision changes, lightheadedness/dizziness. No lower extremity swelling. Ambulating well ad mary. Hospital Course Hospital Course Hospital Course: Ms Danielle Carolina is a 39 yo at 37w6d who presents to [facility] L&D for regular, painful contractions that started a few hours ago. She has had good care. complicated by GDMA1, AMA, grand multiparity and GBS bactiuria at initial ob visit. She had a normal spontaneous vaginal delivery on 05/19/24 at 2144. She delivered a live female baby, Ewelina, weighing 7 lb 7 oz. APGARs 5 (1 min), 7 (5 min), 9 (10 min). EBL 50 mL. She did well . Pain controlled. Formula feeding. Light lochia. Voiding without difficulty and passing flatus. Tolerating regular diet. Denies fever/chills, chest pain and shortness of breath. No headaches, dizziness/lightheadedness or vision changes. Vital signs stable, afebrile. Heart regular rate and rhythm. Lungs clear to auscultation. Abdomen soft, nontender. No lower extremity swelling. Ambulating well ad mary. Normal hospital course. She was discharged to home on PPD # 2 with instructions to follow-up in the office in 2 weeks or sooner if needed. Exam Data for Last 24 hours Vital signs and Labs for Last 24 Hours: Temp Pulse Resp BP Pulse Ox O2 Del Method 98.2 F 75 18 123/58 L 98 Room Air 05/21/24 04:28 05/21/24 04:28 05/21/24 04:28 05/21/24 04:28 05/21/24 04:28 05/21/24 04:28 Laboratory Results - last 24 hr 05/19/24 21:36: RPR w/Rflx to Titer Nonreactive I & O for Last 24 hours: Intake & Output 05/18/24 05/19/24 05/20/24 05/21/24 23:59 23:59 23:59 23:59 Weight 267 lb Constitutional Constitutional: no acute distress and cooperative *Routine HEENT Exam Head: Present normocephalic and atraumatic Eye: Absent conjunctivae pink ENT: Present mucous membranes moist *Routine Neck Exam Neck: Present full ROM *Routine Respiratory Exam Respiratory: Present CTA bilaterally and normal respiratory effort *Routine Cardiovascular Exam Cardiovascular: Present RRR *Routine Abdominal Exam Abdominal: Present soft; Absent tenderness or distended *Routine Rectal Exam Patient deferred: visual exam *Routine Exam Patient deferred: external exam *Routine Extremities Exam Extremities: Present full ROM; Absent edema or calf tenderness Comments: + bilateral lower extremity varicose veins *Routine Neurological Exam Neurological: Present alert, moving all extremities and normal speech Routine Psychiatric Exam Psychiatric: Present normal affect and cooperative Results Data Completed and Pending Labs on day of discharge: Labs from last 24 hours 05/19/24 21:36 RPR w/Rflx to Titer Nonreactive DS: Diagnosis Discharge Diagnosis (1) Status post normal vaginal delivery: Status: Acute (2) GDM (gestational diabetes mellitus), class A1: Status: Acute Code(s): O24.410 - Gestational diabetes mellitus in , diet controlled (3) Grand multiparity: Status: Acute Code(s): Z64.1 - Problems related to multiparity (4) Advanced maternal age in multigravida: Status: Acute Code(s): O09.529 - Supervision of elderly multigravida, unspecified trimester Qualifiers: Trimester: unspecified trimester Qualified Code(s): O09.529 - Supervision of elderly multigravida, unspecified trimester (5) GBS bacteriuria: Status: Acute Code(s): R82.71 - Bacteriuria Problem details: in current Meds Home Medications and Allergies Home Medications ?Medication ?Instructions ?Recorded ?Confirmed ?Type vits no.126-ferrous fum 1 tab PO DAILY 10/13/23 05/20/24 History 28 mg iron-folic acid 800 mcg tablet (Classic ) ibuprofen 800 mg tablet 800 mg PO Q8H PRN pain #20 tabs 05/21/24 Rx New Prescriptions to Start Prescriptions: Janice Mackey Allergies Allergy/AdvReac Type Severity Reaction Status Date / Time No Known Allergies Allergy Verified 05/15/24 11:12 Discharge Plan Disposition Patient Disposition: Home, Self-Care Condition: Good Discharge Order Discharge Orders: Discharge Order (Routine); Ordered 05/21/24 Ordered By: Janice Claire Follow up Plan Follow up with: Janice Claire DO [Staff Physician] - 2 weeks Prescriptions/Medication Reconciliation: New ibuprofen 800 mg tablet 800 mg PO Q8H PRN (Reason: pain) Qty: 20 0RF Continued Classic 28 mg iron- 800 mcg tablet 1 tab PO DAILY Problem Reconciliation Problems Reviewed?: Yes Patient Discharge Instructions ACTIVITY: Limited activity DIET: continue same diet and regular diet Additional Instructions: Congratulations!! Discharge: 1. Take 800 mg Ibuprofen every 8 hours as needed for pain. You can also take 500-1000 mg of Tylenol in between doses, every 6-8 hours. 2. Nothing in the vagina for 6 weeks - no intercourse, douching or tampons. No tub baths/hot tubs or swimming pools 3. Reasons to return to L&D or call On-Call doctor - fever (greater than 100.4) - heavy vaginal bleeding (soaking through 1 pad in less than 2 hours) - vaginal discharge (malodorous and/or purulent) - severe headaches not resolved by medication or rest and leg tenderness/edema 4. depression/blues - Normal to feel anxious/overwhelmed for first 2 weeks - Talk to your doctor if: severe anxiety, trouble bonding with baby, withdrawing from other family members, thoughts of harming yourself or others Janice Claire DO [facility] [phone] Print Language: Thai Providers Primary Care Provider: Bill Valencia Admit Provider: Janice Claire Attending Provider: Janice Claire
== END 2024-05-21 12:52 | disposition home or self-care (01) | DRG 807 ==
LOC: OBOUT 21:34 → OB 21:34
PROVIDERS: Admitting Provider Obstetrics & Gynecology; PCP Family Medicine; Visit Provider Obstetrics & Gynecology
DX: O24.420 Gestational diabetes mellitus in childbirth, diet controlled (principal); Z37.0 Single live birth; Z3A.37 37 weeks gestation of pregnancy; O69.81X0 Labor and delivery complicated by cord around neck, without compression, not applicable or unspecified
CPT/HCPCS: 36415; 80053; 82947; 85025; 86592; 86850